=== PATIENT | male | born 1955 | race Two or more races ===

== ENCOUNTER 2024-04-02 20:40 | Inpatient (IN) | payer OTHER, MEDICAID, MEDICARE, SELFPAY ==
[2024-04-02] VITALS (7 sets, daily range): BP systolic 117–120; BP diastolic 68–77; PULSE 101–117; RESP 18–30; TEMP 38.1–38.9; O2SAT 77–98
--- NOTE | 2024-04-02 20:47 | XR_ITS ---
Examination: AP chest single view Technique one AP portable upright chest single view Exam date and time: April 02, [id number] hrs. Comparison August 08, 2023 Indications: Onset fever today. Findings: No significant cardiac enlargement Median sternotomy wires No pneumonia or pulmonary edema Moderate osteopenia Impression: No pneumonia or pulmonary edema
--- NOTE | 2024-04-02 20:50 | PD.EDABDPN ---
ED Abdominal Pain RME/HPI General Chief Complaint: Flu Like Symptoms Stated complaint: GENERAL ILLNESS Time seen by provider: 04/02/24 20:44 Arrival date/time: 04/02/24 20:40 CC: Cough HPI EMS report the patient being presented to the ER from the assisted care facility where the patient was heard cough/choking, with complaints of feeling cold. Unknown onset time. Review the medical record show the patient has myasthenia gravis type 2 diabetes hyperlipidemia paraplegia with urinary retention and iron deficiency anemia's. Related Data Home Medications ?Medication ?Instructions ?Recorded ?Confirmed atorvastatin 40 mg tablet (Lipitor) 40 mg PO HS #0 tabs 02/21/17 08/07/23 folic acid 1 mg tablet 1 mg PO QDAY 07/08/17 08/07/23 pyridostigmine bromide 60 mg tablet 60 mg PO Q6H 08/24/18 08/07/23 amlodipine 2.5 mg tablet 2.5 mg PO QDAY 11/03/22 08/07/23 calcium acetate(phosphat bind) 667 667 mg PO TIDWM 11/03/22 08/07/23 mg capsule duloxetine 30 mg capsule,delayed 30 mg PO HS 11/03/22 08/07/23 release fenofibrate nanocrystallized 145 145 mg PO QDAY 11/03/22 08/07/23 mg tablet tamsulosin 0.4 mg capsule 0.4 mg PO BID 11/03/22 08/07/23 tizanidine 4 mg tablet 4 mg PO QID 11/03/22 08/07/23 acetaminophen 325 mg tablet 325 mg PO Q8H PRN breaktrhough pain 04/03/23 08/07/23 (Tylenol) albuterol 90 mcg/actuation aerosol 180 mcg inhalation Q4H PRN SOB 04/03/23 08/07/23 inhaler ascorbic acid (vitamin C) 500 mg 500 mg PO BID 04/03/23 08/07/23 tablet aspirin 81 mg capsule 81 mg PO QDAY 04/03/23 08/07/23 bisacodyl 10 mg rectal suppository 10 mg [place] Q72H PRN Constipation 04/03/23 08/07/23 (Dulcolax (bisacodyl)) cholecalciferol (vitamin D3) 25 50 mcg PO QDAY 04/03/23 08/07/23 mcg (1,000 unit) tablet (Vitamin D3) cranberry fruit 450 mg tablet 425 mg PO QDAY 04/03/23 08/07/23 (cranberry) docusate sodium 250 mg capsule 250 mg PO BID 04/03/23 08/07/23 glucagon 1 mg solution for 1 mg subcut DAILY 04/03/23 08/07/23 injection (Glucagon Emergency Kit) magnesium hydroxide 400 mg/5 mL 30 ml PO QDAY PRN Constipation 04/03/23 08/07/23 oral suspension (Milk of Magnesia) magnesium oxide 400 mg PO HS 04/03/23 08/07/23 multivitamin 1 tab PO QDAY 04/03/23 08/07/23 ondansetron HCl 4 mg tablet 4 mg PO Q6H PRN NAUSEA OR VOMITNG 04/03/23 08/07/23 thiamine HCl (vitamin B1) 100 mg 100 mg PO QDAY 04/03/23 08/07/23 tablet oxycodone-acetaminophen 7.5 mg-325 1 tab Q6H PRN Severe Pain (Scale 06/14/23 08/07/23 mg tablet Score 7-10) amitriptyline 50 mg tablet 50 mg PO QDAY 08/07/23 08/07/23 Previous Rx's ?Medication ?Instructions ?Recorded polyethylene glycol 3350 17 gram 17 g PO BID 30 days #100 ea 08/09/23 oral powder packet (HealthyLax) fosfomycin tromethamine 3 gram 1 packet PO Q3D Recurrent ESBL E 08/11/23 oral packet coli UTIs 3 doses #1 ea fluconazole 100 mg tablet 100 mg PO QDAY #7 tabs 08/14/23 Allergies Allergy/AdvReac Type Severity Reaction Status Date / Time No Known Allergies Allergy Verified 07/28/23 09:33 Review of Systems Review of Systems Narrative Review of Systems: GEN: + fever, + chills, no weight loss EYES: No discharge, no visual changes, no pain HEENT: No ear pain, no congestion, no sore throat PULM: No shortness of breath, no cough, no congestion CV: No chest pain, no dyspnea on exertion, no palpitations GI: No nausea, no vomiting, no diarrhea, no pain, no constipation : No frequency, no urgency, no dysuria MUSC/SKEL: No joint pain, no back pain SKIN: No rash PSYCH: No hallucinations, no depression HEME/LYMPH: No easy bleeding or bruising tendencies NEURO: No weakness, no headache Past Medical History Past Medical History NEUROLOGIC: Positive Neurological Disorders, Paralysis and Peripheral Neuropathy; Negative Seizures CARDIAC: Positive Cardiac Disorders, Myocardial Infarction, Coronary Artery Disease, Atherosclerotic Heart Disease, Peripheral Vascular Disease, Hypercholesterolemia, Cellulitis and Hypertension; Negative Congestive Heart Failure RESPIRATORY: Positive Sleep Apnea and Tobacco Use; Negative Chronic Obstructive Pulmonary Disease (COPD) or Asthma GASTROINTESTINAL: Positive Gastrointestinal Disorders and Obesity GENITOURINARY: Positive Genitourinary Disorders and Neurogenic Bladder; Negative Renal Disease REPRODUCTIVE: Negative Breast Cancer MUSCULOSKELETAL: Positive Musculoskeletal Disorders, Myasthenia Gravis, Fibromyalgia and Fractures ENDOCRINE: Positive Endocrine Disorders and Diabetes Mellitus Type 2; Negative Diabetes Mellitus Type 1 HEMATOLOGIC: Positive Blood Disorders and Anemia; Negative Sickle Cell Disease PSYCHO/SOCIAL: Positive Depression and Anxiety OTHER HISTORY: Positive Hospitalization, Autoimmune Disease and Falls; Negative Blood Transfusions, Blood Transfusion Reaction, Anesthesia Reactions, MRSA, Clostridium Difficile or Breast Cancer Family History FAMILY HISTORY: Positive Family Respiratory Disorders and Family Cardiac Disorders; Negative Family Gastrointestinal Problems Surgical History SURGICAL: Positive Coronary Artery Bypass Graft, Coronary Stent, Endocrine Surgery and Thyroidectomy; Negative Ear Surgery, Abdominal Surgery, Nephrectomy, Neurologic Surgery, Mastectomy or Vasectomy Social History SMOKING STATUS: Never smoker SECOND HAND EXPOSURE: Yes SUBSTANCE USE: does not use ED Exam Narrative Physical exam: [General: Obese in moderate discomfort not in any acute distress Head normocephalic HEENT: Within acceptable limits Neck is supple nontender Chest equal chest rise nontender to palpation Respiratory: Clear to auscultation no wheezes crackles or rubs CV: Rate rhythm is regular no murmurs rubs or clicks Abdomen is distended secondary to body habitus soft nontender no masses positive bowel sounds all 4 quadrants Back: No CVA tenderness no spinous process tenderness from cervical spine thoracic and lumbar spine Skin: Intact no petechiae rash induration ulceration or crepitus Extremities: Paraplegic moving upper extremities without complication Neuro: Awake alert oriented x2, person and place, Glascow coma 15 no focal deficits] Course Quality Measures none Orders Category Date Time Status Bedside Influenza A&B Antigen Test NOW Care 04/02/24 21:07 Completed Saline [Insert IV] NOW Care 04/02/24 21:20 Active XR chest 1V Stat Exams 04/02/24 20:47 Completed CBC Stat Lab 04/02/24 21:14 Completed CMP [Comprehensive Metabolic Panel] Stat Lab 04/02/24 21:14 Completed Lactic Acid [Lactate (Lactic Acid)] Stat Lab 04/02/24 21:14 Results Procalcitonin Stat Lab 04/02/24 21:14 Completed Urinalysis Stat Lab 04/02/24 20:52 Completed Acetaminophen Tab [Tylenol Tab] Med 04/02/24 20:48 Discontinued 650 mg PO X1 ONE Sodium Chloride 0.9% 1000 ml [Ns] 1,000 ml Med 04/02/24 21:27 Active IV 999 mls/hr cefTRIAXone/D5w 1gm IV premix [Rocephin/D5w 1gm IV Med 04/02/24 21:20 Discontinued premix] 50 ml IV X1 Vital Signs Vital signs: Vital Signs Temperature 102.1 F H 04/02/24 21:00 Abdominal Pain MDM Patient data External records reviewed:: [facility] previous records and EMS form Clinical information provided by:: patient and EMS Social determinants that could affect healthcare access:: none Patient has the following chronic illnesses:: Myasthenia gravis type 2 diabetes How is presenting disease/condition affected by chronic disease/condition?: uneffected by Evaluation data The following diagnostics were reviewed and interpreted by me:: lab results, radiology exam(s) and EKG tracing(s) Lab and/or radiology exams considered but not ordered:: EKG performed at 2055 shows ventricular 104 WY interval 164 QRS of 9 0 QTc of 347 the sinus tachycardia. Influenza A positive CBC shows no acute leukocytosis anemia thrombocytopenia CMP shows significant electrolyte imbalances there is not a elevated creatinine 1.7 BUN transaminitis and T. bili are within acceptable limits, review of other creatinines in the past show that this is an unchanged chronic condition. Chest x-ray interpreted by me read by radiology as negative for any acute finding Urine is positive for urinary tract infection. Interpretation Summary: Patient is influenza A positive with a UTI however the patient is not able to sustain normal oxygen saturations without supplemental oxygen which he does not wear at home. At this time the patient's case presented Dr. Cancino who agrees to accept the patient for admission for Dr. Garo Whitaker. Medications / Prescriptions Medications or Prescriptions considered but not ordered:: None Medication administrations:: Medication Administration History Sodium Chloride (Ns) 1,000 mls @ 999 mls/hr IV .Q1H1M ONE Stop: 12/31/24 22:27 Last Admin: 04/02/24 22:00 Dose: 999 mls/hr Documented By: KEVIN Discontinued Medications Acetaminophen (Acetaminophen 325 Mg Tablet) 650 mg PO X1 ONE Stop: 04/02/24 20:49 Last Admin: 04/02/24 21:00 Dose: 650 mg Documented By: KEVIN Ceftriaxone Sodium/Dextrose (Rocephin/D5w 1gm Iv Premix) 50 mls @ 100 mls/hr IV X1 ONE Stop: 04/02/24 21:49 Last Admin: 04/02/24 21:59 Dose: 100 mls/hr Documented By: KEVIN None Consultations Consultation(s) initiated? (list below): No Diagnosis Differential diagnosis abdominal pain: other (Pneumonia UTI influenza COVID) Most likely diagnosis given after review of the tests above:: Influenza A UTI Admission Indicated Admission indicated?: indicated Explain why admission is indicated or not indicated:: Requires further medical management Admission Request Was there a request for admission?: No Disposition Plan Disposition Plan: Admit Discharge Plan Plan Patient Disposition: Other Care w/in Hosp ([facility]) Patient condition on transfer: Stable Prescriptions/Referrals Prescriptions/Med Rec: No Action atorvastatin [Lipitor] 40 MG tablet 40 mg PO HS Qty: 0 folic acid 1 mg Tablet 1 mg PO QDAY pyridostigmine bromide 60 mg tablet 60 mg PO Q6H Glucagon Emergency Kit (human) 1 mg recon soln 1 mg subcut DAILY aspirin 81 mg Capsule 81 mg PO QDAY multivitamin Tablet 1 tab PO QDAY acetaminophen [Tylenol] 325 mg Tablet 325 mg PO Q8H PRN (Reason: breaktrhough pain) ondansetron HCl 4 mg Tablet 4 mg PO Q6H PRN (Reason: NAUSEA OR VOMITNG) thiamine HCl (vitamin B1) 100 mg Tablet 100 mg PO QDAY magnesium hydroxide [Milk of Magnesia] 400 mg/5 mL Suspension 30 ml PO QDAY PRN (Reason: Constipation) ascorbic acid (vitamin C) 500 mg Tablet 500 mg PO BID bisacodyl [Dulcolax (bisacodyl)] 10 mg Suppository 10 mg [place] Q72H PRN (Reason: Constipation) albuterol 90 mcg/actuation Aerosol 180 mcg INHALATION Q4H PRN (Reason: SOB) docusate sodium 250 mg Capsule 250 mg PO BID cholecalciferol (vitamin D3) [Vitamin D3] 25 mcg (1,000 unit) Tablet 50 mcg PO QDAY cranberry 450 mg Tablet 425 mg PO QDAY Rx Instructions: administer with a meal magnesium oxide 400 mg magnesium Tablet 400 mg PO HS oxycodone-acetaminophen 7.5-325 mg tablet 1 tab Q6H PRN (Reason: Severe Pain (Scale Score 7-10)) fluconazole 100 mg tablet 100 mg PO QDAY Qty: 7 0RF duloxetine 30 mg capsule,delayed release(DR/EC) 30 mg PO HS tizanidine 4 mg tablet 4 mg PO QID amlodipine 2.5 mg tablet 2.5 mg PO QDAY Rx Instructions: HOLD FOR SBP<100 OR DBP<50 tamsulosin 0.4 mg capsule 0.4 mg PO BID calcium acetate(phosphat bind) 667 mg capsule 667 mg PO TIDWM fenofibrate nanocrystallized 145 mg tablet 145 mg PO QDAY amitriptyline 50 mg tablet 50 mg PO QDAY polyethylene glycol 3350 [HealthyLax] 17 gram Powder In Packet 17 g PO BID 30 Days Qty: 100 6RF fosfomycin tromethamine 3 gram packet 1 packet PO Q3D Qty: 1 12RF Referrals: Leonides Amanda MD [Primary Care Provider] - In 1 week Problem List Clinical Impression: Influenza A, Hypoxemia, UTI (urinary tract infection) due to urinary indwelling catheter Patient/Caregiver Discharge Instructions Print Language: Norwegian Stand Alone Forms: Tejal Award Info., Patient Portal Info Letter PA/MARKETING SERVICES COORDINATOR Supervising Physician PA/MARKETING SERVICES COORDINATOR Supervising Physician: Lazaro Jackson ENP
[2024-04-02] MEDS: ACETAMINOPHEN 325 MG TABLET 650 MG PO (21:00)
[2024-04-02 21:08] LABS: Collection Type, Urine Clean Catch
[2024-04-02 21:17] LABS: Bacteria,Urine 2+; Bilirubin,Urine Negative (Negative); Blood,Urine Negative (Negative); Budding Yeast,Urine Present; Color,Urine Yellow (Lt Yel-Yel); Glucose, Urine Negative (Negative); Hyaline Casts,Urine < 1 /hpf (0-1); Ketones,Urine Trace (Negative); Leukocyte Esterase,Urine Positive (Negative); Nitrite,Urine Negative (Negative); Protein,Urine 1+ (Neg - Trace); RBC,Urine 15 /hpf (0-3); Specific Gravity,Urine 1.022 (1.001-1.035); Squamous Epithelial Cell,Urine 5 /hpf (0-5); WBC,Urine 141 /hpf (0-5)
[2024-04-02 21:19] LABS: Clarity,Urine Turbid (Clear/Hazy)
[2024-04-02 21:22] LABS: Basophils % (Auto) 0 % (0-2.5); Eosinophils # (Auto) 0.1 Thou/mm3 (0.0-0.5); Eosinophils % (Auto) 1 % (0-10); Hemoglobin 15.7 g/dL (13.5-16.0); Immature Granulocytes % (Auto) 0 % (0-0); Immature Granulocytes Auto 0.04 Thou/mm3 (0.00-0.00); Lymphocytes # (Auto) 1.2 Thou/mm3 (1.0-4.8); Lymphocytes % (Auto) 12 % (10-50); Mean Corpuscular HGB Conc 30.2 g/dl (31.0-37.0); Mean Corpuscular Hemoglobin 25.8 pg (25.0-35.0); Mean Corpuscular Volume 85 fL (80-100); Monocytes # (Auto) 0.7 Thou/mm3 (0.0-0.8); Monocytes % (Auto) 7 % (0-12); Neutrophils # (Auto) 8.2 Thou/mm3 (1.8-7.7); Neutrophils % (Auto) 80 % (37-80); Nucleated Red Blood Cell % 0 /100 WBC (0); Platelet Count 246 Thou/mm3 (140-440); RDW Standard Deviation 48.3 fL (35.1-43.9); Red Blood Count 6.09 Miln/mm3 (4.50-5.90); White Blood Count 10.2 Thou/mm3 (3.8-10.6)
[2024-04-02 21:25] LABS: Lactate (Lactic Acid) 2.4 mMol/L (0.4-2.0)
[2024-04-02 21:58] LABS: Alanine Aminotransferase 27 U/L (10-49); Albumin, Serum 5.4 gm/dL (3.4-4.8); Albumin/Globulin Ratio 1.6 (1.2-2.2); Alkaline Phosphatase 84 U/L (46-116); Anion Gap 10 (7-16); Aspartate Amino Transferase 39 U/L (0-34); BUN/Creatinine Ratio 14 Ratio (12-20); Bilirubin,Total 0.3 mg/dL (0.3-1.2); Blood Urea Nitrogen 23 mg/dL (9-23); Calcium 10.7 mg/dL (8.3-10.6); Calcium (Corrected) 10.7 mg/dL (8.5-10.1); Carbon Dioxide 27.1 mMol/L (20.0-31.0); Chloride 100 mMol/L (98-107); Creatinine (Component) 1.7 mg/dL (0.6-1.3); Globulin 3.3 gm/dL (2.3-3.5); Glucose 128 mg/dL (74-106); Osmolality,Calculated 279 (275-295); Potassium 4.3 mMol/L (3.4-5.1); Sodium 137 mMol/L (136-145); Total Protein 8.7 gm/dL (5.7-8.2); eGFR 44 See Note
[2024-04-02 21:59] LABS: Procalcitonin 0.22 ng/ml (0.0-0.49)
[2024-04-02] MEDS: cefTRIAXone/D5w 1gm IV premix 50 ML IV (21:59)
[2024-04-02] MEDS: SODIUM CHLORIDE 0.9% 1000 ML 1,000 ML 999 ML IV (22:00)
--- NOTE | 2024-04-02 23:13 | ESHP_ITS ---
Documentation for date of: 04/02/24 [facility] History of Present Illness Chief complaint: Fever and cough History of present illness: A 68-year-old male with significant past medical history of myasthenia gravis s/p thymectomy, hypertension, BPH, type 2 diabetes mellitus not on any medication, paraplegia status post 2 spinal surgeries, peripheral neuropathy, nephrolithiasis, possible TIMUR, neurogenic bladder, ?history of CAD s/p PCI, chronic pain who is living in [facility] since 2017 was brought to the hospital with chief complaints of fever, low oxygen saturations and cough. Patient endorses that he is having febrile episodes since 3 days and is taking Tylenol for it. On the day of admission, patient was found to have shortness of breath in the facility and on checking vitals found to have low saturations for which he was started on oxygen through nasal cannula and also noted to have a febrile episode for which patient was given an dose of Tylenol. Patient also endorsed that he is having cough with sputum production which was mucoid in nature. Denies chills, rigors, abdominal pain, nausea, vomiting, burning micturition and body pains. Patient reported that he is having indwelling urine catheter since 2017 during which he was diagnosed to have paraplegia due to hematoma in the vertebrae and underwent 2 surgeries for it. Since then patient is bedridden and ambulates in the wheelchair. Noted to have decreased sensations below the umbilicus and having chronic pain due to neuropathy in the feet. ED Course: -Initial vitals were blood pressure 117/68 mmHg, pulse rate 117/min, respiratory rate 20/min, temperature 102.1 ?F, SpO2 94% with 4 L oxygen -Labs significant for creatinine 1.7, BUN 23, lactate 2.4, AST 39, ALT 27, procalcitonin 0.22. Urine analysis showed turbid urine with 1+ proteinuria, 141 WBC, 15 RBC, 2+ urine bacteria, urine yeast positive. Chest x-ray did not show any new infiltrates. Tested positive for influenza A -In the ED, patient was given a dose of Tylenol, ceftriaxone, IV fluids and when tried to wean off from the oxygen, patient is desaturating to 70s for which patient was kept on 4 L oxygen -Patient was admitted for acute hypoxic respiratory failure secondary to influenza A Past medical history: Myasthenia gravis s/p thymectomy, hypertension, BPH, type 2 diabetes mellitus not on any medication, paraplegia status post 2 spinal surgeries, peripheral neuropathy, nephrolithiasis, possible TIMUR, neurogenic bladder, ?history of CAD s/p PCI Past surgical history: Myasthenia gravis s/p thymectomy, paraplegia status post 2 spinal surgeries, ?history of CAD s/p PCI Social history: Smoked for 30 years, currently smoking 1 cigarette/day, denies alcohol and other illicit drug abuse. Allergies: None Review of Systems Review of Systems Narrative Review of Systems: Constitutional: No Weight Change, Fever, No Chills, No Night Sweats, No Fatigue, No Malaise ENT/Mouth: No Hearing Changes, No Ear Pain, No Nasal Congestion, No Sinus Pain, No Hoarseness, No sore throat, No Rhinorrhea, No Swallowing Difficulty Eyes: No Eye Pain, No Swelling, No Redness, No Foreign Body, No Discharge, No Vision Changes Cardiovascular: No Chest Pain, No SOB, No PND, No Dyspnea on Exertion, No Orthopnea, No Edema, No Palpitations Respiratory: No Cough, No Sputum, No Wheezing, No Dyspnea Gastrointestinal: No Nausea, No Vomiting, No Diarrhea, No Constipation, No Pain, No Heartburn, No Anorexia, No Dysphagia, No Hematochezia, No Melena, No Flatulence, No Jaundice Genitourinary: No Dysuria, No Urinary Frequency, No Hematuria, Urinary Incontinence, No Urgency, No Flank Pain, No Urinary Flow Changes, No Hesitancy Musculoskeletal: No Arthralgias, No Myalgias, No Joint Swelling, No Joint Stiffness, No Back Pain, No Neck Pain, No Injury History Skin: No Skin Lesions, No Pruritis Neuro: Weakness, Numbness, Paresthesias, No Loss of Consciousness, No Syncope, No Dizziness, No Headache, No Coordination Changes, No Recent Falls Exam Vital Signs Temp Pulse Resp BP Pulse Ox O2 Del Method O2 Flow Rate 102.1 F H 101 H 30 H 117/68 96 Nasal Cannula 4 04/02/24 21:02 04/02/24 22:01 04/02/24 22:01 04/02/24 22:01 04/02/24 22:03 04/02/24 22:03 04/02/24 22:03 Narrative Exam General: Awake. Obese patient lying on the bed with oxygen through nasal cannula. HEENT: Normocephalic, atraumatic, mucous membranes moist. Heart: Regular rate and rhythm, no murmurs. Lungs: Overall decreased breath sounds are noted due to body habitus. Abdomen: Soft, nondistended, nontender, positive bowel sounds. ?No guarding or rebound tenderness. Neurologic: Alert and oriented x3, power is 0 in bilateral lower extremities with absent sensations below umbilicus. Extremities: No edema. Skin: No rash or ecchymoses. Results: Labs 04/03/24 04:40 04/03/24 04:40 Labs: Short CBC 04/02/24 Range/Units 21:14 WBC 10.2 (3.8-10.6) Thou/mm3 Hgb 15.7 (13.5-16.0) g/dL Hct 52.0 (41.0-53.0) % Plt Count 246 (140-440) Thou/mm3 BMP 04/02/24 21:14 Sodium 137 Potassium 4.3 Chloride 100 Carbon Dioxide 27.1 BUN 23 Creatinine 1.7 H Glucose 128 H Calcium 10.7 H Liver Function 04/02/24 Range/Units 21:14 Total Bilirubin 0.3 (0.3-1.2) mg/dL AST 39 H (0-34) U/L ALT 27 (10-49) U/L Alkaline Phosphatase 84 (46-116) U/L Albumin 5.4 H (3.4-4.8) gm/dL Urine 04/02/24 Range/Units 20:52 Urine Color Yellow (Lt Yel-Yel) Urine Clarity Turbid A (Clear/Hazy) Urine pH 7.0 (5.0-7.0) Ur Specific [place] 1.022 (1.001-1.035) Urine Protein 1+ A (Neg - Trace) Urine Glucose (UA) Negative (Negative) Quality Measures Quality Measures none Advance care planning discussed with:: patient Medications Home Medications and Allergies Home Medications ?Medication ?Instructions ?Recorded ?Confirmed ?Type atorvastatin 40 mg tablet (Lipitor) 40 mg PO HS #0 tabs 02/21/17 04/03/24 History folic acid 1 mg tablet 1 mg PO QDAY 07/08/17 04/03/24 History pyridostigmine bromide 60 mg tablet 60 mg PO Q6H 08/24/18 04/03/24 History amlodipine 2.5 mg tablet 2.5 mg PO QDAY 11/03/22 04/03/24 History calcium acetate(phosphat bind) 667 667 mg PO TIDWM 11/03/22 04/03/24 History mg capsule duloxetine 30 mg capsule,delayed 30 mg PO HS 11/03/22 04/03/24 History release fenofibrate nanocrystallized 145 145 mg PO QDAY 11/03/22 04/03/24 History mg tablet tamsulosin 0.4 mg capsule 0.4 mg PO BID 11/03/22 04/03/24 History tizanidine 4 mg tablet 4 mg PO QID 11/03/22 04/03/24 History acetaminophen 325 mg tablet 325 mg PO Q8H PRN breaktrhough pain 04/03/23 04/03/24 History (Tylenol) albuterol 90 mcg/actuation aerosol 180 mcg inhalation Q4H PRN SOB 04/03/23 04/03/24 History inhaler ascorbic acid (vitamin C) 500 mg 500 mg PO BID 04/03/23 04/03/24 History tablet aspirin 81 mg capsule 81 mg PO QDAY 04/03/23 04/03/24 History bisacodyl 10 mg rectal suppository 10 mg MS Q72H PRN Constipation 04/03/23 04/03/24 History (Dulcolax (bisacodyl)) cholecalciferol (vitamin D3) 25 50 mcg PO QDAY 04/03/23 04/03/24 History mcg (1,000 unit) tablet (Vitamin D3) cranberry fruit 450 mg tablet 425 mg PO QDAY 04/03/23 04/03/24 History (cranberry) docusate sodium 250 mg capsule 250 mg PO BID 04/03/23 04/03/24 History glucagon 1 mg solution for 1 mg subcut DAILY 04/03/23 04/03/24 History injection (Glucagon Emergency Kit) magnesium hydroxide 400 mg/5 mL 30 ml PO QDAY PRN Constipation 04/03/23 04/03/24 History oral suspension (Milk of Magnesia) magnesium oxide 400 mg PO HS 04/03/23 04/03/24 History multivitamin 1 tab PO QDAY 04/03/23 04/03/24 History ondansetron HCl 4 mg tablet 4 mg PO Q6H PRN NAUSEA OR VOMITNG 04/03/23 04/03/24 History thiamine HCl (vitamin B1) 100 mg 100 mg PO QDAY 04/03/23 04/03/24 History tablet oxycodone-acetaminophen 7.5 mg-325 1 tab Q6H PRN Severe Pain (Scale 06/14/23 04/03/24 History mg tablet Score 7-10) amitriptyline 50 mg tablet 50 mg PO QDAY 08/07/23 04/03/24 History cranberry 405 mg capsule 425 mg 04/03/24 History gabapentin 800 mg tablet 800 mg PO TID 04/03/24 04/03/24 History oxycodone-acetaminophen 5 mg-325 1 tab PO Q6H PRN Pain (Scale Score 04/03/24 History mg tablet (Percocet) 7-10) oxycodone-acetaminophen 7.5 mg-325 1 tab PO 4XD 04/03/24 04/03/24 History mg tablet ropinirole 1 mg tablet 1 mg PO BID 04/03/24 04/03/24 History Allergies Allergy/AdvReac Type Severity Reaction Status Date / Time No Known Allergies Allergy Verified 07/28/23 09:33 Visit Medications Acetaminophen (Acetaminophen 325 Mg Tablet) 650 mg PO Q6H PRN PRN Reason: Fever >101.5 Stop: 05/02/24 23:01 Albuterol/Ipratropium (Albuterol/Ipratropium (Duoneb) Rt Rajani 3 Ml Nebu) 3 ml INH Q6HRRT [facility] Stop: 05/03/24 00:59 Heparin Sodium (Porcine) (Heparin Sod Inj 5000 Unit/Ml Vial) 5,000 unit SC Q8HR [facility] Stop: 04/17/24 05:59 Ondansetron HCl (Ondansetron Inj 2 Mg/Ml Inj 2 Ml) 4 mg IV Q6H PRN; Protocol PRN Reason: NAUSEA OR VOMITING Stop: 05/02/24 23:01 Pantoprazole Sodium (Pantoprazole 40 Mg Tablet) 40 mg PO QDAY [facility] Stop: 05/03/24 08:59 Sodium Chloride (Sodium Cl Rt Rajani 3% 4 Ml Nebu (Non-Formulary)) 4 ml INH Q6HRRT [facility] Stop: 05/03/24 00:59 Discontinued Medications Acetaminophen (Acetaminophen 325 Mg Tablet) 650 mg PO X1 ONE Stop: 04/02/24 20:49 Last Admin: 04/02/24 21:00 Dose: 650 mg Ceftriaxone Sodium/Dextrose (Rocephin/D5w 1gm Iv Premix) 50 mls @ 100 mls/hr IV X1 ONE Stop: 04/02/24 21:49 Last Admin: 04/02/24 21:59 Dose: 100 mls/hr Sodium Chloride (Ns) 1,000 mls @ 999 mls/hr IV .Q1H1M ONE Stop: 04/02/24 22:27 Last Admin: 04/02/24 22:00 Dose: 999 mls/hr Assessment & Plan Plan A 68-year-old male with significant past medical history of myasthenia gravis s/p thymectomy, hypertension, type 2 diabetes mellitus not on any medication, paraplegia status post 2 spinal surgeries, peripheral neuropathy, nephrolithiasis, possible TIMUR, neurogenic bladder, ?history of CAD s/p PCI, BPH, chronic pain who is living in [facility] since 2017 was brought to the hospital with chief complaints of fever, low oxygen saturations and cough. # Acute hypoxic respiratory failure # Secondary to influenza A # Suspected underlying TIMUR/OHS -Patient endorses that he is having febrile episodes since 3 days and temporarily relieved with Tylenol -Also complaining of cough with sputum which is clear and mucoid -Denies shortness of breath, abdominal pain, vomiting, burning micturition -Patient was noted to have low oxygen saturations on the day of admission in the facility and was started on oxygen through nasal cannula -In the ED, patient was found to have temperature of 102.1 ?F, SpO2 94% with 4 L oxygen through nasal cannula -Labs remarkable for creatinine 1.7, lactate 2.4, AST 39. Urine analysis showed turbid urine with 141 WBC, urinary bacteria -Chest x-ray did not show any infiltrates -Tested positive for influenza A. Negative for influenza B and COVID -Patient received a dose of ceftriaxone in view of suspected UTI, Tylenol and IV fluids Plan -Started on Tamiflu 75 Mg p.o. twice daily [04/02-for 5 days] -Nebulizations as needed -Head end elevation of the bed -Acetaminophen as needed -Oxygen inhalation as needed # CKD stage III -Patient was found to have elevated creatinine and low GFR since 08/2023 -Creatinine as of 04/02/2024 is 1.7 -Patient denies any history of kidney disease -Recommended to consult nephro if needed -Bilateral renal ultrasound was ordered -Oreilly catheter in situ and recommended to titrate urine output. -Avoid nephrotoxic medication and renally dose medication # History of myasthenia gravis status post thymectomy -Patient does not appear to be in myasthenic crisis as of now -Resumed his home medication pyridostigmine 60 Mg p.o. 6 hourly -Avoid macrolides, aminoglycosides and fluoroquinolones #? Complicated UTI secondary to catheter related # Neurogenic bladder secondary to paraplegia # BPH -Patient had previous history of nephrolithiasis, UTI and JAEL -Patient presented with fever, tested positive for influenza A, urine analysis showed turbid urine with 1+ proteinuria, 141 WBC, 2+ urine bacteria -Patient is having Oreilly catheter since 2016 and last Oreilly change was 1 week before the hospitalization -Patient does have paraplegia and is not able to perceive sensations below the umbilicus and he does not endorse any burning micturition -Patient received a dose of ceftriaxone in the ED Plan -Urine cultures were sent -New Oreilly catheter was placed -Resumed tamsulosin -Started on cephalexin 500 Mg p.o. twice daily in view of complicated UTI as it is safe to give in myasthenia gravis -Change antibiotic if needed based on urine cultures #? History of CAD s/p PCI -Patient endorsed that he did not have any heart problems or PCI done -Patient was using aspirin and atorvastatin as home medication -Resumed his home medications. please confirm the CAD history with the patient # Chronic peripheral neuropathy -Patient is using gabapentin 800 Mg p.o. 3 times daily, duloxetine 30 Mg p.o. at bedtime and amitriptyline 50 Mg p.o. daily -Still complaining of severe tingling of bilateral lower extremities mainly around the foot -Resumed his home medication -B12 and folate levels were ordered -Resumed multivitamin # History of hypertension -Patient is using amlodipine 2.5 Mg surgery as home medication -Blood pressure at the time of admission is 117/68 mmHg -Resume his home medication # History of type 2 diabetes mellitus, not on treatment -Patient is not using any oral hypoglycemic drugs or insulin -A1c on 08/2023 is 5.3. Found to have elevated A1c in 2019 -Repeat HbA1c is ordered Hospital Maintenance: Dispo: Med/tele DVT ppx: Heparin GI ppx: Protonix Diet: Low-salt IV lines: Peripheral Code status: Full code Patient plan of care was discussed with the attending physician, Dr. Angel Cruz, PGY1 Attending Provider Attestation/Addendum I discussed with and supervised the resident physician who took care of this patient. I agree with the assessment and plan as above. 68-year-old male patient with coronary artery disease status post PCI, hypertension and diabetes, myasthenia gravis. Patient is being admitted for acute hypoxic respiratory failure. The patient tested positive for influenza A. Patient will be admitted for further management monitoring and treatment.
[2024-04-03] VITALS (17 sets, daily range): BP systolic 112–182; BP diastolic 57–86; PULSE 75–102; RESP 13–27; TEMP 36–38.1; O2SAT 92–100; BMI 37.4; BMI 35.9
[2024-04-03] MEDS: SODIUM CL RT SOL 3% 4 ML NEBU (NON-FORMULARY) INH ×3 (00:04→19:01)
[2024-04-03] MEDS: ALBUTEROL/IPRATROPIUM (Duoneb) RT SOL 3 ML NEBU INH ×4 (00:04→18:57)
--- NOTE | 2024-04-03 00:10 | PC.NURSE ---
When pt arrived he was shivering vigurously and had a fever oiver 102. opprox 40 min after tylenol the chills subsided. Pt states he feels much better now.
[2024-04-03 00:21] LABS: Reflex Lactate? Y
[2024-04-03 00:29] LABS: Lactic Acid, 3 HR 0.6 mMol/L (0.4-2.0)
[2024-04-03] MEDS: OSELTAMIVIR 75 MG CAPSULE PO ×3 (00:56→20:43)
--- NOTE | 2024-04-03 02:20 | PC.NURSE ---
Dr liang notified of pt blood pressure 182/86 HR 92. No new orders at this time.
[2024-04-03] MEDS: oxyCODONE/APAP 5/325 TABLET 2 TAB PO ×3 (03:55→18:19)
[2024-04-03 04:59] LABS: Basophils % (Auto) 0 % (0-2.5); Eosinophils % (Auto) 0 % (0-10); Hematocrit 45.7 % (41.0-53.0); Hemoglobin 13.6 g/dL (13.5-16.0); Immature Granulocytes % (Auto) 1 % (0-0); Immature Granulocytes Auto 0.06 Thou/mm3 (0.00-0.00); Lymphocytes # (Auto) 0.6 Thou/mm3 (1.0-4.8); Lymphocytes % (Auto) 5 % (10-50); Mean Corpuscular HGB Conc 29.8 g/dl (31.0-37.0); Mean Corpuscular Hemoglobin 25.3 pg (25.0-35.0); Mean Corpuscular Volume 85 fL (80-100); Monocytes # (Auto) 0.8 Thou/mm3 (0.0-0.8); Monocytes % (Auto) 8 % (0-12); Neutrophils # (Auto) 8.9 Thou/mm3 (1.8-7.7); Neutrophils % (Auto) 86 % (37-80); Nucleated Red Blood Cell % 0 /100 WBC (0); Platelet Count 230 Thou/mm3 (140-440); RDW Standard Deviation 47.8 fL (35.1-43.9); Red Blood Count 5.37 Miln/mm3 (4.50-5.90); White Blood Count 10.4 Thou/mm3 (3.8-10.6)
--- NOTE | 2024-04-03 05:09 | XR_ITS ---
Examination: Retroperitoneal ultrasound, complete Technique: Multiple high resolution grayscale images of the retroperitoneum obtained, including kidneys and bladder. Exam date and time:April 03, 2024 0811 hrs. Indications: Diagnosis chronic kidney disease, mild left hydronephrosis, 19 x 7 mm proximal left ureteral calculus, 5 mm lower pole right renal calculus on CT abdomen August 07, 2023 Findings: Right kidney 13.2 x 6.7 x 6.8 cm cortex 3.6 cm 36 mm lower pole cyst Left kidney 10.6 x 5.5 x 5.0 cm cortex 2.0 cm Moderate bilateral renal parenchymal scar formation No hydronephrosis Contracted urinary bladder 4.6 cm Prostate poorly visualized Impression: Limited study Moderate bilateral renal parenchymal scar formation No hydronephrosis or renal calculi
[2024-04-03] MEDS: tiZANidine HCL 2 MG TABLET 4 MG PO ×4 (05:13→20:40)
[2024-04-03] MEDS: HEPARIN SOD INJ 5000 UNIT/ML VIAL SC ×3 (05:13→21:56)
[2024-04-03 05:37] LABS: Anion Gap 7 (7-16); BUN/Creatinine Ratio 18 Ratio (12-20); Blood Urea Nitrogen 23 mg/dL (9-23); Calcium 9.3 mg/dL (8.3-10.6); Carbon Dioxide 29.3 mMol/L (20.0-31.0); Chloride 101 mMol/L (98-107); Creatinine (Component) 1.3 mg/dL (0.6-1.3); Estimated Creatinine Clearance 58.1 mL/min (>60); Glucose 116 mg/dL (74-106); Magnesium 2.2 mg/dL (1.6-2.6); Osmolality,Calculated 278 (275-295); Potassium 4.3 mMol/L (3.4-5.1); Sodium 137 mMol/L (136-145); Thyroid Stimulating Hormone 0.53 uIU/mL (0.55-4.78); eGFR > 60 See Note
[2024-04-03 05:40] LABS: Vitamin B12 271 pg/mL (211-911)
[2024-04-03 05:41] LABS: Folate > 24.00 ng/mL (>5.38)
[2024-04-03 05:48] LABS: Glucose Estimated Average 111 mg/dL (80-131); Hemoglobin A1C 5.5 % Hgb (4.8-6.0)
[2024-04-03] MEDS: ONDANSETRON INJ 2 MG/ML INJ 2 ML 4 MG IV (05:54)
[2024-04-03 06:49] LABS: Cardiac Risk Estimate 2.9 RATIO (4.0-6.7); Cholesterol 135 mg/dL (132-200); HDL Cholesterol 46 mg/dL (40-60); LDL Cholesterol,Calculated 52 mg/dL (0-130); Triglycerides 185 mg/dL (30-150)
[2024-04-03] MEDS: POLYETHYLENE GLYCOL 17 GM PACKET PO ×2 (08:31→20:39)
[2024-04-03] MEDS: FENOFIBRATE 145 MG TABLET (NON-FORMULARY) PO (08:31)
[2024-04-03] MEDS: THIAMINE 100 MG TABLET PO (08:31)
[2024-04-03] MEDS: rOPINIRole HCL 1 MG TABLET PO ×2 (08:31→20:41)
[2024-04-03] MEDS: DOCUSATE SOD 250 MG CAPSULE PO ×2 (08:31→20:43)
[2024-04-03] MEDS: ASPIRIN 81 MG CHEW PO (08:32)
[2024-04-03] MEDS: PANTOPRAZOLE 40 MG TABLET PO (08:32)
[2024-04-03] MEDS: cephALEXin 250 MG CAPSULE 500 MG PO ×2 (08:32→20:41)
[2024-04-03] MEDS: amLODIPine BESYLATE 2.5 MG TABLET PO (08:32)
[2024-04-03] MEDS: TAMSULOSIN HCL 0.4 MG CAPSULE PO ×2 (08:32→20:41)
[2024-04-03] MEDS: MULTIVITAMINS TABLET 1 TAB PO (08:32)
[2024-04-03] MEDS: FOLIC ACID 1 MG TABLET PO (08:32)
--- NOTE | 2024-04-03 10:51 | PC.SS ---
Ramses Cross is a 68 [id number] admitted to Med Surg for Influenza A. SS spoke to pt nurse Carolina from [facility]. 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 [place] reports he pt is primarily bedbound and wheelchair bound and MAX assist with all ADLS. Pts surrogate decision maker is his son Gabriel Cross [phone]. Plan is for pt to return to [facility], pt will need gurney transport and has the insurance coverage. SS will remain available for any additional needs or concerns. Plan: [facility] (Long-term resident) DM: Dangelo Cross [phone] PCP: Dr. Amanda
--- NOTE | 2024-04-03 11:09 | ESPR_ITS ---
<Statement entered by Andres Sauceda MD - 04/09/24 14:15> I reviewed above note and agree with findings and plans. I have also personally examined the patient with medicine team and went over assessment and plan with medical team including merchandising internship and resident physician. Documentation for date of: 04/03/24 Subjective Subjective Interval history: Patient seen and examined at bedside. Reports feeling much better, saturating well on 3 L nasal cannula. Will add doxycycline for MRSA coverage. Labs reviewed, will continue bladder Distigmine every 6 hours. Will continue Keflex for UTI. Renal ultrasound significant for moderate bilateral renal parenchymal scar formation. Will continue to monitor patient. Exam Vital Signs Temp Pulse Resp BP Pulse Ox O2 Del Method O2 Flow Rate 96.8 F 79 18 156/71 H 96 Nasal Cannula 4 04/03/24 08:00 04/03/24 10:13 04/03/24 08:00 04/03/24 08:32 04/03/24 08:00 04/03/24 08:00 04/03/24 08:00 Narrative Exam General: Awake. Obese patient lying on the bed with oxygen through nasal cannula. HEENT: Normocephalic, atraumatic, mucous membranes moist. Heart: Regular rate and rhythm, no murmurs. Lungs: Overall decreased breath sounds are noted due to body habitus. Abdomen: Soft, nondistended, nontender, positive bowel sounds. ?No guarding or rebound tenderness. Neurologic: Alert and oriented x3, power is 0 in bilateral lower extremities with absent sensations below umbilicus. Extremities: No edema. Skin: No rash or ecchymoses. Scar noted on mid chest. Objective Labs 04/03/24 04:40 04/03/24 04:40 Labs: Laboratory Results - last 24 hr 04/02/24 04/02/24 04/03/24 20:52 21:14 00:23 WBC 10.2 RBC 6.09 H Hgb 15.7 Hct 52.0 MCV 85 MCH 25.8 MCHC 30.2 L RDW Std Deviation 48.3 H Plt Count 246 Neut % (Auto) 80 Lymph % (Auto) 12 [place] % (Auto) 7 Eos % (Auto) 1 Baso % (Auto) 0 Neut # (Auto) 8.2 H Lymph # (Auto) 1.2 [place] # (Auto) 0.7 Eos # (Auto) 0.1 Baso # (Auto) 0.0 Immature Gran # (Auto) 0.04 H Absolute Nucleated RBC 0.00 Immature Gran % 0 Nucleated RBC % 0 Sodium 137 Potassium 4.3 Chloride 100 Carbon Dioxide 27.1 Anion Gap 10 BUN 23 Creatinine 1.7 H Estim Creat Clear Calc Not Performed. eGFR 44 L BUN/Creatinine Ratio [address] Glu mg/dL Hemoglobin A1c Calculated Osmolality 279 Lactic Acid 2.4 H 0.6 Calcium 10.7 H Corrected Calcium 10.7 H Magnesium Total Bilirubin 0.3 AST 39 H ALT 27 Alkaline Phosphatase 84 Total Protein 8.7 H Albumin 5.4 H Globulin 3.3 Albumin/Globulin Ratio 1.6 Triglycerides Cholesterol LDL Cholesterol, Calc HDL Cholesterol Cholesterol/HDL Ratio Vitamin B12 Folate Procalcitonin 0.22 TSH Ur Collection Type Clean Catch Urine Color Yellow Urine Clarity Turbid A Urine pH 7.0 Ur Specific Cocoa 1.022 Urine Protein 1+ A Urine Glucose (UA) Negative Urine Ketones Trace Urine Blood Negative Urine Nitrite Negative Urine Bilirubin Negative Urine Urobilinogen (Auto) 3.0 Ur Leukocyte Esterase Positive Urine RBC 15 H Urine WBC 141 H Ur Squamous Epith Cells 5 Urine Bacteria 2+ A Hyaline Casts < 1 Urine Yeast (Budding) Present A 04/03/24 04/03/24 04/03/24 04:40 04:40 04:40 WBC 10.4 RBC 5.37 Hgb 13.6 D Hct 45.7 MCV 85 MCH 25.3 MCHC 29.8 L RDW Std Deviation 47.8 H Plt Count 230 Neut % (Auto) 86 H Lymph % (Auto) 5 L [place] % (Auto) 8 Eos % (Auto) 0 Baso % (Auto) 0 Neut # (Auto) 8.9 H Lymph # (Auto) 0.6 L [place] # (Auto) 0.8 Eos # (Auto) 0.0 Baso # (Auto) 0.0 Immature Gran # (Auto) 0.06 H Absolute Nucleated RBC 0.00 Immature Gran % 1 H Nucleated RBC % 0 Sodium 137 Potassium 4.3 Chloride 101 Carbon Dioxide 29.3 Anion Gap 7 BUN 23 Creatinine 1.3 Estim Creat Clear Calc 58.1 L eGFR > 60 BUN/Creatinine Ratio [address]ucose [address] Glu mg/dL 111 Hemoglobin A1c 5.5 Calculated Osmolality 278 Lactic Acid Calcium 9.3 Corrected Calcium Magnesium 2.2 Total Bilirubin AST ALT Alkaline Phosphatase Total Protein Albumin Globulin Albumin/Globulin Ratio Triglycerides 185 H Cancelled Cholesterol 135 Cancelled LDL Cholesterol, Calc 52 HDL Cholesterol Cholesterol/HDL Ratio Vitamin B12 Folate Procalcitonin TSH Ur Collection Type Urine Color Urine Clarity Urine pH Ur Specific [place] Urine Protein Urine Glucose (UA) Urine Ketones Urine Blood Urine Nitrite Urine Bilirubin Urine Urobilinogen (Auto) Ur Leukocyte Esterase Urine RBC Urine WBC Ur Squamous Epith Cells Urine Bacteria Hyaline Casts Urine Yeast (Budding) 04/03/24 04/03/24 04/03/24 04:40 04:40 04:40 WBC RBC Hgb Hct MCV MCH MCHC RDW Std Deviation Plt Count Neut % (Auto) Lymph % (Auto) Independence % (Auto) Eos % (Auto) Baso % (Auto) Neut # (Auto) Lymph # (Auto) [place] # (Auto) Eos # (Auto) Baso # (Auto) Immature Gran # (Auto) Absolute Nucleated RBC Immature Gran % Nucleated RBC % Sodium Potassium Chloride Carbon Dioxide Anion Gap BUN Creatinine Estim Creat Clear Calc eGFR BUN/Creatinine Ratio Glucose Estimated Ave Glu mg/dL Hemoglobin A1c Calculated Osmolality Lactic Acid Calcium Corrected Calcium Magnesium Total Bilirubin AST ALT Alkaline Phosphatase Total Protein Albumin Globulin Albumin/Globulin Ratio Triglycerides Cholesterol LDL Cholesterol, Calc Cancelled HDL Cholesterol 46 Cancelled Cholesterol/HDL Ratio 2.9 L Cancelled Vitamin B12 271 Folate > 24.00 Procalcitonin TSH 0.53 L Ur Collection Type Urine Color Urine Clarity Urine pH Ur Specific [place] Urine Protein Urine Glucose (UA) Urine Ketones Urine Blood Urine Nitrite Urine Bilirubin Urine Urobilinogen (Auto) Ur Leukocyte Esterase Urine RBC Urine WBC Ur Squamous Epith Cells Urine Bacteria Hyaline Casts Urine Yeast (Budding) Quality Measures Quality Measures none Advance care planning discussed with:: patient Assessment & Plan Assessment Current Active Medications: Generic Name Dose Route Start Last Admin Trade Name Freq PRN Reason Stop Dose Admin Acetaminophen 650 mg 04/03/24 10:56 Acetaminophen 325 Mg Tablet PO 05/02/24 23:01 Q6H PRN Fever >101.5 Albuterol/Ipratropium 3 ml 04/03/24 01:00 04/03/24 06:56 Albuterol/Ipratropium (Duoneb) Rt Rajani 3 Ml Nebu INH 05/03/24 00:59 3 ml Q6HRRT CARMITA Administration Amlodipine Besylate 2.5 mg 04/03/24 09:00 04/03/24 08:32 Amlodipine Besylate 2.5 Mg Tablet PO 05/03/24 08:59 2.5 mg QDAY CARMITA Administration Aspirin 81 mg 04/03/24 09:00 04/03/24 08:32 Aspirin 81 Mg Chew PO 05/03/24 08:59 81 mg QDAY CARMITA Administration Atorvastatin Calcium 40 mg 04/03/24 21:00 Atorvastatin Calcium 20 Mg Tablet PO 05/03/24 20:59 HS [facility] Cephalexin HCl 500 mg 04/03/24 09:00 04/03/24 08:32 Cephalexin 250 Mg Capsule PO 04/10/24 08:59 500 mg BID CARMITA Administration Docusate Sodium 250 mg 04/03/24 09:00 04/03/24 08:31 Docusate Sod 250 Mg Capsule PO 05/03/24 08:59 250 mg BID CARMITA Administration Protocol Doxycycline Hyclate 100 mg 04/03/24 11:00 Doxycycline 100 Mg Tablet PO 04/10/24 10:59 BID CARMITA Duloxetine HCl 30 mg 04/03/24 21:00 Duloxetine Hcl 30 Mg Capsule PO 05/03/24 20:59 HS [facility] Fenofibrate 145 mg 04/03/24 09:00 04/03/24 08:31 Fenofibrate 145 Mg Tablet (Non-Formulary) PO 05/03/24 08:59 145 mg QDAY CARMITA Administration Folic Acid 1 mg 04/03/24 09:00 04/03/24 08:32 Folic Acid 1 Mg Tablet PO 05/03/24 08:59 1 mg QDAY CARMITA Administration Heparin Sodium (Porcine) 5,000 unit 04/03/24 06:00 04/03/24 05:13 Heparin Sod Inj 5000 Unit/Ml Vial SC 04/17/24 05:59 5,000 unit Q8HR CARMITA Administration Magnesium Hydroxide 30 ml 04/03/24 03:07 Milk Of Magnesia Susp 30 Ml Udc PO 05/03/24 03:06 QDAY PRN Constipation Protocol Magnesium Oxide 400 mg 04/03/24 21:00 Magnesium Oxide 400 Mg Tablet PO 05/03/24 20:59 HS [facility] Multivitamins 1 tab 04/03/24 09:00 04/03/24 08:32 Multivitamins Tablet PO 05/03/24 08:59 1 tab QDAY CARMITA Administration Ondansetron HCl 4 mg 04/02/24 23:02 04/03/24 05:54 Ondansetron Inj 2 Mg/Ml Inj 2 Ml IV 05/02/24 23:01 4 mg Q6H PRN Administration NAUSEA OR VOMITING Protocol Oseltamivir Phosphate 75 mg 04/02/24 23:45 04/03/24 08:31 Oseltamivir 75 Mg Capsule PO 04/09/24 23:44 75 mg BID CARMITA Administration Oxycodone/Acetaminophen 2 tab 04/03/24 03:15 04/03/24 03:55 Oxycodone/Apap 5/325 Tablet PO 04/08/24 03:14 2 tab Q6HR PRN Administration PAIN SCALE 4-10(Mod-Sev Pantoprazole Sodium 40 mg 04/03/24 09:00 04/03/24 08:32 Pantoprazole 40 Mg Tablet PO 05/03/24 08:59 40 mg QDAY CARMITA Administration Polyethylene Glycol 17 gm 04/03/24 09:00 04/03/24 08:31 Polyethylene Glycol 17 Gm Packet PO 05/03/24 08:59 17 gm BID CARMITA Administration Pyridostigmine Tyronza 60 mg 04/03/24 03:15 04/03/24 03:57 Pyridostigmine Tyronza 60 Mg Tablet PO 05/03/24 03:14 Not Given Q6H CARMITA Ropinirole HCl 1 mg 04/03/24 09:00 04/03/24 08:31 Ropinirole Hcl 1 Mg Tablet PO 05/03/24 08:59 1 mg BID CARMITA Administration Sodium Chloride 4 ml 04/03/24 01:00 04/03/24 06:56 Sodium Cl Rt Rajani 3% 4 Ml Nebu (Non-Formulary) INH 05/03/24 00:59 4 ml Q6HRRT CARMITA Administration Tamsulosin HCl 0.4 mg 04/03/24 09:00 04/03/24 08:32 Tamsulosin Hcl 0.4 Mg Capsule PO 05/03/24 08:59 0.4 mg BID CARMITA Administration Thiamine HCl 100 mg 04/03/24 09:00 04/03/24 08:31 Thiamine 100 Mg Tablet PO 05/03/24 08:59 100 mg QDAY CARMITA Administration Tizanidine HCl 4 mg 04/03/24 06:00 04/03/24 05:13 Tizanidine Hcl 2 Mg Tablet PO 05/03/24 05:59 4 mg QID CARMITA Administration Plan Summary: Mr. Cross is a 68-year-old male with significant past medical history of myasthenia gravis s/p thymectomy, hypertension, type 2 diabetes mellitus not on any medication, paraplegia status post 2 spinal surgeries, peripheral neuropathy, nephrolithiasis, possible TIMUR, neurogenic bladder, ?history of CAD s/p PCI, BPH, chronic pain who is living in [facility] rehab center since 2017 was brought to the hospital with chief complaints of fever, low oxygen saturations and cough. # Acute hypoxic respiratory failure # SIRS positive 05/07 # Secondary to influenza A # Suspected underlying TIMUR/OHS -Patient endorses that he is having febrile episodes since 3 days and temporarily relieved with Tylenol -Also complaining of cough with sputum which is clear and mucoid -Denies shortness of breath, abdominal pain, vomiting, burning micturition. -Patient was noted to have low oxygen saturations on the day of admission in the facility and was started on oxygen through nasal cannula -In the ED, patient was found to have temperature of 102.1 ?F, SpO2 94% with 4 L oxygen through nasal cannula, tachycardic heart rate 117 on presentation -Labs remarkable for creatinine 1.7, lactate 2.4, AST 39. Urine analysis showed turbid urine with 141 WBC, urinary bacteria -Chest x-ray did not show any infiltrates -Tested positive for influenza A. Negative for influenza B and COVID -Patient received a dose of ceftriaxone in view of suspected UTI, Tylenol and IV fluids Plan -Started on Tamiflu 75 Mg p.o. twice daily [04/02-for 5 days] -Started on doxycycline 100 mg p.o. twice daily for MRSA coverage -Nebulizations as needed, DuoNeb as needed -Head end elevation of the bed -Acetaminophen as needed -Oxygen inhalation as needed # CKD stage III -Patient was found to have elevated creatinine and low GFR since 08/2023 -Creatinine as of 04/02/2024 is 1.7 -Patient denies any history of kidney disease -Renal ultrasound significant for moderate bilateral renal parenchymal scar formation. -Oreilly catheter in situ and recommended to titrate urine output. -Avoid nephrotoxic medication and renally dose medication # History of myasthenia gravis status post thymectomy -Patient does not appear to be in myasthenic crisis as of now -Resumed his home medication pyridostigmine 60 Mg p.o. 6 hourly -Avoid macrolides, aminoglycosides and fluoroquinolones # Complicated UTI secondary to catheter related # Neurogenic bladder secondary to paraplegia # BPH -Patient had previous history of nephrolithiasis, UTI and JAEL -Patient presented with fever, tested positive for influenza A, urine analysis showed turbid urine with 1+ proteinuria, 141 WBC, 2+ urine bacteria -Patient is having Oreilly catheter since 2017 and last Oreilly change was 1 week before the hospitalization -Patient does have paraplegia and is not able to perceive sensations below the umbilicus and he does not endorse any burning micturition -Patient received a dose of ceftriaxone in the ED Plan -Urine cultures were sent -New Oreilly catheter was placed -Resumed tamsulosin -Started on cephalexin 500 Mg p.o. twice daily in view of complicated UTI as it is safe to give in myasthenia gravis -Change antibiotic if needed based on urine cultures #?History of CAD s/p PCI -Patient endorsed that he did not have any heart problems or PCI done -Patient was using aspirin and atorvastatin as home medication -Resumed his home medications. please confirm the CAD history with the patient # Chronic peripheral neuropathy -Patient is using gabapentin 800 Mg p.o. 3 times daily, duloxetine 30 Mg p.o. at bedtime and amitriptyline 50 Mg p.o. daily -Still complaining of severe tingling of bilateral lower extremities mainly around the foot -Resumed his home medication -B12, folate normal -Resumed multivitamin # History of hypertension -Patient is using amlodipine 2.5 mg as home medication -Blood pressure at the time of admission is 117/68 mmHg -Resume his home medication # History of type 2 diabetes mellitus, not on treatment -Patient is not using any oral hypoglycemic drugs or insulin -A1c on 08/2023 is 5.5. -Monitor daily blood glucose Hospital Maintenance: Dispo: Med/tele DVT ppx: Heparin GI ppx: Protonix Diet: Low-salt IV lines: Peripheral Code status: Full code Case discussed with Attending Dr. Sauceda. Dyllan Pradhan PGY1
[2024-04-03] MEDS: pyRIDostigmine bromide 60 MG TABLET PO ×3 (12:12→20:40)
[2024-04-03] MEDS: DOXYCYCLINE 100 MG TABLET PO ×2 (12:12→20:42)
[2024-04-03] MEDS: GABAPENTIN 300 MG CAPSULE PO ×2 (14:29→21:56)
--- NOTE | 2024-04-03 14:50 | PC.SS ---
Roundin[place] of O2, on IV abx for UTI and MRSA
[2024-04-03] MEDS: ATORVASTATIN CALCIUM 20 MG TABLET 40 MG PO (20:42)
[2024-04-03] MEDS: DULoxetine HCL 30 MG CAPSULE PO (20:42)
[2024-04-03] MEDS: MAGNESIUM OXIDE 400 MG TABLET PO (20:43)
[2024-04-04] VITALS (15 sets, daily range): BP systolic 90–159; BP diastolic 55–70; PULSE 65–79; RESP 14–20; TEMP 36.1–36.5; O2SAT 92–100; BMI 36.1
[2024-04-04] MEDS: SODIUM CL RT SOL 3% 4 ML NEBU (NON-FORMULARY) INH ×2 (01:06→18:58)
[2024-04-04] MEDS: ALBUTEROL/IPRATROPIUM (Duoneb) RT SOL 3 ML NEBU INH ×4 (01:06→18:59)
[2024-04-04] MEDS: pyRIDostigmine bromide 60 MG TABLET PO ×4 (03:12→21:59)
[2024-04-04] MEDS: ONDANSETRON INJ 2 MG/ML INJ 2 ML 4 MG IV (04:56)
[2024-04-04 05:26] LABS: Basophils % (Auto) 1 % (0-2.5); Eosinophils % (Auto) 1 % (0-10); Hematocrit 45.4 % (41.0-53.0); Hemoglobin 13.4 g/dL (13.5-16.0); Immature Granulocytes % (Auto) 1 % (0-0); Immature Granulocytes Auto 0.05 Thou/mm3 (0.00-0.00); Lymphocytes # (Auto) 0.8 Thou/mm3 (1.0-4.8); Lymphocytes % (Auto) 13 % (10-50); Mean Corpuscular HGB Conc 29.5 g/dl (31.0-37.0); Mean Corpuscular Hemoglobin 25.3 pg (25.0-35.0); Mean Corpuscular Volume 86 fL (80-100); Monocytes # (Auto) 0.7 Thou/mm3 (0.0-0.8); Monocytes % (Auto) 10 % (0-12); Neutrophils % (Auto) 75 % (37-80); Nucleated Red Blood Cell % 0 /100 WBC (0); Platelet Count 229 Thou/mm3 (140-440); RDW Standard Deviation 48.5 fL (35.1-43.9); Red Blood Count 5.29 Miln/mm3 (4.50-5.90); White Blood Count 6.6 Thou/mm3 (3.8-10.6)
[2024-04-04] MEDS: tiZANidine HCL 2 MG TABLET 4 MG PO ×4 (05:44→22:00)
[2024-04-04] MEDS: HEPARIN SOD INJ 5000 UNIT/ML VIAL SC ×3 (05:45→22:02)
[2024-04-04] MEDS: GABAPENTIN 300 MG CAPSULE PO ×3 (05:45→21:58)
[2024-04-04 05:49] LABS: Anion Gap 6 (7-16); BUN/Creatinine Ratio 21 Ratio (12-20); Blood Urea Nitrogen 29 mg/dL (9-23); Calcium 9.4 mg/dL (8.3-10.6); Carbon Dioxide 32.3 mMol/L (20.0-31.0); Chloride 100 mMol/L (98-107); Creatinine (Component) 1.4 mg/dL (0.6-1.3); Estimated Creatinine Clearance 87.6 mL/min (>60); Free T4 (Free Thyroxine) 1.19 ng/dL (0.89-1.76); Glucose 112 mg/dL (74-106); Osmolality,Calculated 282 (275-295); Potassium 4.8 mMol/L (3.4-5.1); Sodium 138 mMol/L (136-145); eGFR 55 See Note
--- NOTE | 2024-04-04 08:47 | PC.NURSE ---
notified Dr. Pradhan of pt's bp
[2024-04-04] MEDS: FOLIC ACID 1 MG TABLET PO (09:09)
[2024-04-04] MEDS: POLYETHYLENE GLYCOL 17 GM PACKET PO ×2 (09:09→21:58)
[2024-04-04] MEDS: DOXYCYCLINE 100 MG TABLET PO ×2 (09:09→22:01)
[2024-04-04] MEDS: OSELTAMIVIR 75 MG CAPSULE PO ×2 (09:09→22:01)
[2024-04-04] MEDS: cephALEXin 250 MG CAPSULE 500 MG PO ×2 (09:09→22:00)
[2024-04-04] MEDS: AMITRIPTYLINE HCL 25 MG TABLET 50 MG PO (09:09)
[2024-04-04] MEDS: MULTIVITAMINS TABLET 1 TAB PO (09:09)
[2024-04-04] MEDS: FENOFIBRATE 145 MG TABLET (NON-FORMULARY) PO (09:09)
[2024-04-04] MEDS: ASPIRIN 81 MG CHEW PO (09:09)
[2024-04-04] MEDS: PANTOPRAZOLE 40 MG TABLET PO (09:09)
[2024-04-04] MEDS: DOCUSATE SOD 250 MG CAPSULE PO ×2 (09:09→21:59)
[2024-04-04] MEDS: rOPINIRole HCL 1 MG TABLET PO ×2 (09:09→21:58)
[2024-04-04] MEDS: TAMSULOSIN HCL 0.4 MG CAPSULE PO ×2 (09:09→22:01)
[2024-04-04] MEDS: THIAMINE 100 MG TABLET PO (09:09)
--- NOTE | 2024-04-04 09:43 | PC.SS ---
Follow up note: Pt is on 2 liters of O2. Pt does not use O2 at [facility], [facility]. Pt is on PO antibiotic and Tamiflu. SS spoke to Beth at [facility] who states pt is open to working with PT again and is requesting PT evaluation.
[2024-04-04] MEDS: SODIUM CHLORIDE 0.9% 1000 ML 1,000 ML 80 ML IV (11:01)
--- NOTE | 2024-04-04 12:23 | ESPR_ITS ---
<Statement entered by Andres Sauceda MD - 04/09/24 14:15> I reviewed above note and agree with findings and plans. I have also personally examined the patient with medicine team and went over assessment and plan with medical team including internet media planner and resident physician. Documentation for date of: 04/04/24 Subjective Subjective Interval history: Patient seen and examined at bedside. Patient's oxygen requirement continues to remain high, currently on 2 L nasal cannula. Blood pressure soft, creatinine BUN slightly increased compared to yesterday Will start patient on IV maintenance fluid Will continue to monitor patient, anticipate discharge tomorrow if patient's supplemental oxygen requirement improves. Exam Vital Signs Temp Pulse Resp BP Pulse Ox O2 Del Method O2 Flow Rate 97.6 F 78 17 154/67 H 92 L Nasal Cannula 1 04/04/24 12:00 04/04/24 12:04/04/24 12:04/04/24 12:00 04/04/24 12:00 04/04/24 12:04/04/24 12:00 Narrative Exam General: Awake. Obese patient lying on the bed with oxygen through nasal cannula. HEENT: Normocephalic, atraumatic, mucous membranes moist. Heart: Regular rate and rhythm, no murmurs. Lungs: Overall decreased breath sounds are noted due to body habitus. Abdomen: Soft, nondistended, nontender, positive bowel sounds. ?No guarding or rebound tenderness. Neurologic: Alert and oriented x3, power is 0 in bilateral lower extremities with absent sensations below umbilicus. Extremities: No edema. Skin: No rash or ecchymoses. Scar noted on mid chest. Objective Labs 04/04/24 04:40 04/04/24 04:40 Labs: Laboratory Results - last 24 hr 04/04/24 04:40 WBC 6.6 RBC 5.29 Hgb 13.4 L Hct 45.4 MCV 86 MCH 25.3 MCHC 29.5 L RDW Std Deviation 48.5 H Plt Count 229 Neut % (Auto) 75 Lymph % (Auto) 13 [place] % (Auto) 10 Eos % (Auto) 1 Baso % (Auto) 1 Neut # (Auto) 5.0 Lymph # (Auto) 0.8 L [place] # (Auto) 0.7 Eos # (Auto) 0.0 Baso # (Auto) 0.0 Immature Gran # (Auto) 0.05 H Absolute Nucleated RBC 0.00 Immature Gran % 1 H Nucleated RBC % 0 Sodium 138 Potassium 4.8 D Chloride 100 Carbon Dioxide 32.3 H Anion Gap 6 L BUN 29 H Creatinine 1.4 H Estim Creat Clear Calc 87.6 eGFR 55 L BUN/Creatinine Ratio 21 H Glucose 112 H Calculated Osmolality 282 Calcium 9.4 Free T4 1.19 Quality Measures Quality Measures none Advance care planning discussed with:: patient Assessment & Plan Assessment Current Active Medications: Generic Name Dose Route Start Last Admin Trade Name Freq PRN Reason Stop Dose Admin Acetaminophen 650 mg 04/03/24 10:56 Acetaminophen 325 Mg Tablet PO 05/02/24 23:01 Q6H PRN Fever >101.5 Albuterol/Ipratropium 3 ml 04/03/24 01:00 04/04/24 07:21 Albuterol/Ipratropium (Duoneb) Rt Rajani 3 Ml Nebu INH 05/03/24 00:59 3 ml Q6HRRT CARMITA Administration Amitriptyline HCl 50 mg 04/04/24 09:00 04/04/24 09:09 Amitriptyline Hcl 25 Mg Tablet PO 05/04/24 08:59 50 mg QDAY CARMITA Administration Amlodipine Besylate 2.5 mg 04/03/24 09:00 04/03/24 08:32 Amlodipine Besylate 2.5 Mg Tablet PO 05/03/24 08:59 2.5 mg QDAY CARMITA Administration Aspirin 81 mg 04/03/24 09:00 04/04/24 09:09 Aspirin 81 Mg Chew PO 05/03/24 08:59 81 mg QDAY CARMITA Administration Atorvastatin Calcium 40 mg 04/03/24 21:00 04/03/24 20:42 Atorvastatin Calcium 20 Mg Tablet PO 05/03/24 20:59 40 mg HS CARMITA Administration Cephalexin HCl 500 mg 04/03/24 09:00 04/04/24 09:09 Cephalexin 250 Mg Capsule PO 04/10/24 08:59 500 mg BID CARMITA Administration Docusate Sodium 250 mg 04/03/24 09:00 04/04/24 09:09 Docusate Sod 250 Mg Capsule PO 05/03/24 08:59 250 mg BID CARMITA Administration Protocol Doxycycline Hyclate 100 mg 04/03/24 11:00 04/04/24 09:09 Doxycycline 100 Mg Tablet PO 04/10/24 10:59 100 mg BID CARMITA Administration Duloxetine HCl 30 mg 04/03/24 21:00 04/03/24 20:42 Duloxetine Hcl 30 Mg Capsule PO 05/03/24 20:59 30 mg HS CARMITA Administration Fenofibrate 145 mg 04/03/24 09:00 04/04/24 09:09 Fenofibrate 145 Mg Tablet (Non-Formulary) PO 05/03/24 08:59 145 mg QDAY CARMITA Administration Folic Acid 1 mg 04/03/24 09:00 04/04/24 09:09 Folic Acid 1 Mg Tablet PO 05/03/24 08:59 1 mg QDAY CARMITA Administration Gabapentin 300 mg 04/03/24 14:00 04/04/24 05:45 Gabapentin 300 Mg Capsule PO 05/03/24 13:59 300 mg TID CARMITA Administration Heparin Sodium (Porcine) 5,000 unit 04/03/24 06:00 04/04/24 05:45 Heparin Sod Inj 5000 Unit/Ml Vial SC 04/17/24 05:59 5,000 unit Q8HR CARMITA Administration Sodium Chloride 1,000 mls @ 80 mls/hr 04/04/24 10:50 04/04/24 11:01 Ns IV 04/04/24 23:19 80 mls/hr .[id number] CARMITA Administration Magnesium Hydroxide 30 ml 04/03/24 03:07 Milk Of Magnesia Susp 30 Ml Udc PO 05/03/24 03:06 QDAY PRN Constipation Protocol Magnesium Oxide 400 mg 04/03/24 21:00 04/03/24 20:43 Magnesium Oxide 400 Mg Tablet PO 05/03/24 20:59 400 mg HS CARMITA Administration Multivitamins 1 tab 04/03/24 09:00 04/04/24 09:09 Multivitamins Tablet PO 05/03/24 08:59 1 tab QDAY CARMITA Administration Ondansetron HCl 4 mg 04/02/24 23:02 04/04/24 04:56 Ondansetron Inj 2 Mg/Ml Inj 2 Ml IV 05/02/24 23:01 4 mg Q6H PRN Administration NAUSEA OR VOMITING Protocol Oseltamivir Phosphate 75 mg 04/02/24 23:45 04/04/24 09:09 Oseltamivir 75 Mg Capsule PO 04/07/24 09:01 75 mg BID CARMITA Administration Oxycodone/Acetaminophen 2 tab 04/03/24 03:15 04/03/24 18:19 Oxycodone/Apap 5/325 Tablet PO 04/08/24 03:14 2 tab Q6HR PRN Administration PAIN SCALE 4-10(Mod-Sev Pantoprazole Sodium 40 mg 04/03/24 09:00 04/04/24 09:09 Pantoprazole 40 Mg Tablet PO 05/03/24 08:59 40 mg QDAY CARMITA Administration Polyethylene Glycol 17 gm 04/03/24 09:00 04/04/24 09:09 Polyethylene Glycol 17 Gm Packet PO 05/03/24 08:59 17 gm BID CARMITA Administration Pyridostigmine [place] 60 mg 04/03/24 03:15 04/04/24 09:09 Pyridostigmine [place] 60 Mg Tablet PO 05/03/24 03:14 60 mg Q6H CARMITA Administration Ropinirole HCl 1 mg 04/03/24 09:00 04/04/24 09:09 Ropinirole Hcl 1 Mg Tablet PO 05/03/24 08:59 1 mg BID CARMITA Administration Sodium Chloride 4 ml 04/03/24 01:00 04/04/24 07:21 Sodium Cl Rt Rajani 3% 4 Ml Nebu (Non-Formulary) INH 05/03/24 00:59 Not Given Q6HRRT CARMITA Tamsulosin HCl 0.4 mg 04/03/24 09:00 04/04/24 09:09 Tamsulosin Hcl 0.4 Mg Capsule PO 05/03/24 08:59 0.4 mg BID CARMITA Administration Thiamine HCl 100 mg 04/03/24 09:00 04/04/24 09:09 Thiamine 100 Mg Tablet PO 05/03/24 08:59 100 mg QDAY CARMITA Administration Tizanidine HCl 4 mg 04/03/24 06:00 04/04/24 05:44 Tizanidine Hcl 2 Mg Tablet PO 05/03/24 05:59 4 mg QID CARMITA Administration Plan Summary: Mr. Cross is a 68-year-old male with significant past medical history of myasthenia gravis s/p thymectomy, hypertension, type 2 diabetes mellitus not on any medication, paraplegia status post 2 spinal surgeries, peripheral neuropathy, nephrolithiasis, possible TIMUR, neurogenic bladder, ?history of CAD s/p PCI, BPH, chronic pain who is living in [facility] rehab center since 2016 was brought to the hospital with chief complaints of fever, low oxygen saturations and cough. # Acute hypoxic respiratory failure # SIRS positive 05/07 # Secondary to influenza A # Suspected underlying TIMUR/OHS -Patient endorses that he is having febrile episodes since 3 days and temporarily relieved with Tylenol -Also complaining of cough with sputum which is clear and mucoid -Denies shortness of breath, abdominal pain, vomiting, burning micturition. -Patient was noted to have low oxygen saturations on the day of admission in the facility and was started on oxygen through nasal cannula -In the ED, patient was found to have temperature of 102.1 ?F, SpO2 94% with 4 L oxygen through nasal cannula, tachycardic heart rate 117 on presentation -Labs remarkable for creatinine 1.7, lactate 2.4, AST 39. Urine analysis showed turbid urine with 141 WBC, urinary bacteria -Chest x-ray did not show any infiltrates -Tested positive for influenza A. Negative for influenza B and COVID -Patient received a dose of ceftriaxone in view of suspected UTI, Tylenol and IV fluids Plan -Continue Tamiflu 75 Mg p.o. twice daily [04/02-for 5 days] -Continue doxycycline 100 mg p.o. twice daily for MRSA coverage -Nebulizations as needed, DuoNeb as needed -Head end elevation of the bed -Acetaminophen as needed -Oxygen inhalation as needed # CKD stage III # Dehydration -Started on maintenance fluids -Patient was found to have elevated creatinine and low GFR since 08/2023 -Creatinine as of 04/02/2024 is 1.7 -Patient denies any history of kidney disease -Renal ultrasound significant for moderate bilateral renal parenchymal scar formation. -Oreilly catheter in situ and recommended to titrate urine output. -Avoid nephrotoxic medication and renally dose medication # History of myasthenia gravis status post thymectomy -Patient does not appear to be in myasthenic crisis as of now -Resumed his home medication pyridostigmine 60 Mg p.o. 6 hourly -Avoid macrolides, aminoglycosides and fluoroquinolones # Complicated UTI secondary to catheter related # Neurogenic bladder secondary to paraplegia # BPH -Patient had previous history of nephrolithiasis, UTI and JAEL -Patient presented with fever, tested positive for influenza A, urine analysis showed turbid urine with 1+ proteinuria, 141 WBC, 2+ urine bacteria -Patient is having Oreilly catheter since 2017 and last Oreilly change was 1 week before the hospitalization -Patient does have paraplegia and is not able to perceive sensations below the umbilicus and he does not endorse any burning micturition -Patient received a dose of ceftriaxone in the ED Plan -Urine cultures were sent, pending result -New Oreilly catheter was placed -Resumed tamsulosin -Started on cephalexin 500 Mg p.o. twice daily in view of complicated UTI as it is safe to give in myasthenia gravis -Will change antibiotic if needed based on urine cultures #History of CAD s/p PCI -Patient was using aspirin and atorvastatin as home medication -Resumed his home medications. # Chronic peripheral neuropathy -Patient is using gabapentin 800 Mg p.o. 3 times daily, duloxetine 30 Mg p.o. at bedtime and amitriptyline 50 Mg p.o. daily -Still complaining of severe tingling of bilateral lower extremities mainly around the foot -Resumed gabapentin 300 mg 3 times daily, will uptitrate if needed. -B12, folate normal -Resumed multivitamin # History of hypertension -Patient is using amlodipine 2.5 mg as home medication -Blood pressure at the time of admission is 117/68 mmHg -Resume his home medication # History of type 2 diabetes mellitus, not on treatment -Patient is not using any oral hypoglycemic drugs or insulin -A1c on 08/2023 is 5.5. -Monitor daily blood glucose Hospital Maintenance: Dispo: Med/tele DVT ppx: Heparin GI ppx: Protonix Diet: Low-salt IV lines: Peripheral Code status: Full code Case discussed with Attending Dr. Sauceda. Dyllan Pradhan PGY1
[2024-04-04] MEDS: oxyCODONE/APAP 5/325 TABLET 2 TAB PO (12:29)
[2024-04-04] MEDS: amLODIPine BESYLATE 2.5 MG TABLET PO (12:29)
[2024-04-04] MEDS: ATORVASTATIN CALCIUM 20 MG TABLET 40 MG PO (21:59)
[2024-04-04] MEDS: MAGNESIUM OXIDE 400 MG TABLET PO (22:01)
[2024-04-04] MEDS: DULoxetine HCL 30 MG CAPSULE PO (22:02)
[2024-04-05] VITALS (12 sets, daily range): BP systolic 109–167; BP diastolic 55–76; PULSE 62–80; RESP 16–20; TEMP 36–36.4; O2SAT 90–100; BMI 36.7
[2024-04-05] MEDS: SODIUM CL RT SOL 3% 4 ML NEBU (NON-FORMULARY) INH ×4 (01:20→19:05)
[2024-04-05] MEDS: ALBUTEROL/IPRATROPIUM (Duoneb) RT SOL 3 ML NEBU INH ×4 (01:20→19:05)
[2024-04-05] MEDS: pyRIDostigmine bromide 60 MG TABLET PO ×4 (02:59→21:02)
[2024-04-05] MEDS: oxyCODONE/APAP 5/325 TABLET 2 TAB PO ×4 (03:50→21:54)
[2024-04-05] MEDS: tiZANidine HCL 2 MG TABLET 4 MG PO ×4 (05:34→21:02)
[2024-04-05] MEDS: GABAPENTIN 300 MG CAPSULE PO ×3 (05:35→21:02)
[2024-04-05] MEDS: HEPARIN SOD INJ 5000 UNIT/ML VIAL SC ×3 (05:35→21:06)
[2024-04-05 05:51] LABS: Basophils % (Auto) 0 % (0-2.5); Eosinophils # (Auto) 0.1 Thou/mm3 (0.0-0.5); Eosinophils % (Auto) 2 % (0-10); Hematocrit 42.1 % (41.0-53.0); Hemoglobin 12.7 g/dL (13.5-16.0); Immature Granulocytes % (Auto) 1 % (0-0); Immature Granulocytes Auto 0.03 Thou/mm3 (0.00-0.00); Lymphocytes % (Auto) 18 % (10-50); Mean Corpuscular HGB Conc 30.2 g/dl (31.0-37.0); Mean Corpuscular Hemoglobin 25.6 pg (25.0-35.0); Mean Corpuscular Volume 85 fL (80-100); Monocytes # (Auto) 0.4 Thou/mm3 (0.0-0.8); Monocytes % (Auto) 8 % (0-12); Neutrophils # (Auto) 3.9 Thou/mm3 (1.8-7.7); Neutrophils % (Auto) 71 % (37-80); Nucleated Red Blood Cell % 0 /100 WBC (0); Platelet Count 239 Thou/mm3 (140-440); RDW Standard Deviation 47.2 fL (35.1-43.9); Red Blood Count 4.97 Miln/mm3 (4.50-5.90); White Blood Count 5.5 Thou/mm3 (3.8-10.6)
[2024-04-05 06:17] LABS: Anion Gap 5 (7-16); BUN/Creatinine Ratio 23 Ratio (12-20); Blood Urea Nitrogen 25 mg/dL (9-23); Carbon Dioxide 31.3 mMol/L (20.0-31.0); Chloride 102 mMol/L (98-107); Creatinine (Component) 1.1 mg/dL (0.6-1.3); Estimated Creatinine Clearance 69.5 mL/min (>60); Glucose 107 mg/dL (74-106); Osmolality,Calculated 280 (275-295); Potassium 4.2 mMol/L (3.4-5.1); Sodium 138 mMol/L (136-145); eGFR > 60 See Note
[2024-04-05] MEDS: ASPIRIN 81 MG CHEW PO (09:59)
[2024-04-05] MEDS: FENOFIBRATE 145 MG TABLET (NON-FORMULARY) PO (09:59)
[2024-04-05] MEDS: MULTIVITAMINS TABLET 1 TAB PO (10:00)
[2024-04-05] MEDS: cephALEXin 250 MG CAPSULE 500 MG PO ×2 (10:00→21:00)
[2024-04-05] MEDS: rOPINIRole HCL 1 MG TABLET PO ×2 (10:00→21:01)
[2024-04-05] MEDS: OSELTAMIVIR 75 MG CAPSULE PO ×2 (10:00→21:01)
[2024-04-05] MEDS: TAMSULOSIN HCL 0.4 MG CAPSULE PO ×2 (10:00→21:02)
[2024-04-05] MEDS: PANTOPRAZOLE 40 MG TABLET PO (10:00)
[2024-04-05] MEDS: FOLIC ACID 1 MG TABLET PO (10:01)
[2024-04-05] MEDS: amLODIPine BESYLATE 2.5 MG TABLET PO (10:01)
[2024-04-05] MEDS: AMITRIPTYLINE HCL 25 MG TABLET 50 MG PO (10:01)
[2024-04-05] MEDS: DOCUSATE SOD 250 MG CAPSULE PO ×2 (10:02→21:00)
[2024-04-05] MEDS: THIAMINE 100 MG TABLET PO (10:02)
[2024-04-05] MEDS: POLYETHYLENE GLYCOL 17 GM PACKET PO (10:02)
[2024-04-05] MEDS: DOXYCYCLINE 100 MG TABLET PO ×2 (10:02→21:00)
--- NOTE | 2024-04-05 10:12 | PC.SS ---
Follow up note: Pt is from [facility] and will return at d/c. SS was informed by Beth at [facility] pt does not require insurance authorization due now having Medicare. Pt is on 1 liter of O2.
--- NOTE | 2024-04-05 11:56 | PC.NURSE ---
Discharge orders were put in this morning at 10:35. Pt was taken on NC and on RA. Pt desated down to 85. Placed NC at 1 L on pt and O2 went back up to 93. Made aware. will reassess.
--- NOTE | 2024-04-05 12:54 | ESDS_ITS ---
<Statement entered by Andres Sauceda MD - 04/09/24 14:16> I reviewed above note and agree with findings and plans. I have also personally examined the patient with medicine team and went over assessment and plan with medical team including paid internship and resident physician. Planned Discharge Date 04/05/24 DS: Providers Provider Date of admission: 04/02/24 23:02 Primary care physician: Leonides Amanda MD Admitting Provider: Amando Martinez MD Attending Provider on Admission: Andres Sauceda MD Consults: 04/02/24 23:13 Referral Physical Therapy Routine Comment: Physician Instructions: Attending Provider on DC: Carlita De MD Discharging Provider: Carlita De MD DS: Diagnosis Problem List Completed Was Problem List Reviewed/Reconciled?: Yes Hospital Course Hospital Course Hospital course: Mr. Cross is a 68-year-old male with past medical history of myasthenia gravis status post thymectomy, hypertension, type 2 diabetes paraplegia status post 2 spinal surgeries, peripheral neuropathy, nephrolithiasis, neurogenic bladder, CAD status post PCI, BPH, chronic pain who lives at [facility] rehab since 2017 and was brought to [facility] with a chief complaint of fever, hypoxia, cough. Patient was found to have influenza A upon admission and was started on Tamiflu. During the course of his hospitalization patient remained afebrile and stated that he would like to work with physical therapy. Respiratory cultures ordered for the patient did not grow bacteria so no antibiotic therapy was recommended upon discharge. Isolation precautions were discontinued for the patient and no further antiviral therapy will be continued. Patient has returned to baseline health is medically cleared for discharge. Recommend to continue with physical/occupational therapy for improvement in mobility. Plan for discharge discussed with supervising attending Dr. Komal De M.D. PGY-3 Summary: Mr. Cross is a 68-year-old male with significant past medical history of myasthenia gravis s/p thymectomy, hypertension, type 2 diabetes mellitus not on any medication, paraplegia status post 2 spinal surgeries, peripheral neuropathy, nephrolithiasis, possible TIMUR, neurogenic bladder, ?history of CAD s/p PCI, BPH, chronic pain who is living in [facility] rehab center since 2017 was brought to the hospital with chief complaints of fever, low oxygen saturations and cough. # Acute hypoxic respiratory failure # SIRS positive 05/07 # Secondary to influenza A # Suspected underlying TIMUR/OHS -Patient endorses that he is having febrile episodes since 3 days and temporarily relieved with Tylenol -Also complaining of cough with sputum which is clear and mucoid -Denies shortness of breath, abdominal pain, vomiting, burning micturition. -Patient was noted to have low oxygen saturations on the day of admission in the facility and was started on oxygen through nasal cannula -In the ED, patient was found to have temperature of 102.1 ?F, SpO2 94% with 4 L oxygen through nasal cannula, tachycardic heart rate 117 on presentation -Labs remarkable for creatinine 1.7, lactate 2.4, AST 39. Urine analysis showed turbid urine with 141 WBC, urinary bacteria -Chest x-ray did not show any infiltrates -Tested positive for influenza A. Negative for influenza B and COVID -Patient received a dose of ceftriaxone in view of suspected UTI, Tylenol and IV fluids Plan -Continue Tamiflu 75 Mg p.o. twice daily [04/02-for 5 days] -Continue doxycycline 100 mg p.o. twice daily for MRSA coverage -Nebulizations as needed, DuoNeb as needed -Head end elevation of the bed -Acetaminophen as needed -Oxygen inhalation as needed # CKD stage III # Dehydration -Started on maintenance fluids -Patient was found to have elevated creatinine and low GFR since 08/2023 -Creatinine as of 04/02/2024 is 1.7 -Patient denies any history of kidney disease -Renal ultrasound significant for moderate bilateral renal parenchymal scar formation. -Oreilly catheter in situ and recommended to titrate urine output. -Avoid nephrotoxic medication and renally dose medication # History of myasthenia gravis status post thymectomy -Patient does not appear to be in myasthenic crisis as of now -Resumed his home medication pyridostigmine 60 Mg p.o. 6 hourly -Avoid macrolides, aminoglycosides and fluoroquinolones # Complicated UTI secondary to catheter related # Neurogenic bladder secondary to paraplegia # BPH -Patient had previous history of nephrolithiasis, UTI and JAEL -Patient presented with fever, tested positive for influenza A, urine analysis showed turbid urine with 1+ proteinuria, 141 WBC, 2+ urine bacteria -Patient is having Oreilly catheter since 2017 and last Oreilly change was 1 week before the hospitalization -Patient does have paraplegia and is not able to perceive sensations below the umbilicus and he does not endorse any burning micturition -Patient received a dose of ceftriaxone in the ED Plan -Urine cultures were sent, pending result -New Oreilly catheter was placed -Resumed tamsulosin -Started on cephalexin 500 Mg p.o. twice daily in view of complicated UTI as it is safe to give in myasthenia gravis -Will change antibiotic if needed based on urine cultures #History of CAD s/p PCI -Patient was using aspirin and atorvastatin as home medication -Resumed his home medications. # Chronic peripheral neuropathy -Patient is using gabapentin 800 Mg p.o. 3 times daily, duloxetine 30 Mg p.o. at bedtime and amitriptyline 50 Mg p.o. daily -Still complaining of severe tingling of bilateral lower extremities mainly around the foot -Resumed gabapentin 300 mg 3 times daily, will uptitrate if needed. -B12, folate normal -Resumed multivitamin # History of hypertension -Patient is using amlodipine 2.5 mg as home medication -Blood pressure at the time of admission is 117/68 mmHg -Resume his home medication # History of type 2 diabetes mellitus, not on treatment -Patient is not using any oral hypoglycemic drugs or insulin -A1c on 08/2023 is 5.5. -Monitor daily blood glucose Hospital Maintenance: Dispo: Med/tele DVT ppx: Heparin GI ppx: Protonix Diet: Low-salt IV lines: Peripheral Code status: Full code Status at Discharge Functional status at discharge: bed bound Overall status at discharge: patient is progressing back to baseline Time Spent with Patient Time attestation: Total time spent providing and/or coordinating discharge services: Time spent: Greater than 30 minutes Exam Vital Signs Temp Pulse Resp BP Pulse Ox O2 Del Method O2 Flow Rate 97.3 F 75 16 158/71 H 99 Nasal Cannula 1 04/05/24 08:00 04/05/24 12:02 04/05/24 12:02 04/05/24 10:01 04/05/24 12:02 04/05/24 08:00 04/05/24 12:02 Discharge Plan Plan Patient Disposition: Xfer Skilled Nsg Fac (SNF) Patient condition on transfer: Stable Care Plan Goals: Patient is medically cleared for discharge Is recommended to follow-up with PCP in regards to recent hospitalization Patient will benefit from physical therapy/Occupational Therapy to better mobilize and improve strength. [facility] Prescriptions/Referrals Prescriptions/Med Rec: Continued atorvastatin [Lipitor] 40 MG tablet 40 mg PO HS Qty: 0 folic acid 1 mg Tablet 1 mg PO QDAY pyridostigmine bromide 60 mg tablet 60 mg PO Q6H Glucagon Emergency Kit (human) 1 mg recon soln 1 mg subcut DAILY aspirin 81 mg Capsule 81 mg PO QDAY multivitamin Tablet 1 tab PO QDAY acetaminophen [Tylenol] 325 mg Tablet 325 mg PO Q8H PRN (Reason: breaktrhough pain) ondansetron HCl 4 mg Tablet 4 mg PO Q6H PRN (Reason: NAUSEA OR VOMITNG) thiamine HCl (vitamin B1) 100 mg Tablet 100 mg PO QDAY magnesium hydroxide [Milk of Magnesia] 400 mg/5 mL Suspension 30 ml PO QDAY PRN (Reason: Constipation) ascorbic acid (vitamin C) 500 mg Tablet 500 mg PO BID bisacodyl [Dulcolax (bisacodyl)] 10 mg Suppository 10 mg ME Q72H PRN (Reason: Constipation) albuterol 90 mcg/actuation Aerosol 180 mcg INHALATION Q4H PRN (Reason: SOB) docusate sodium 250 mg Capsule 250 mg PO BID cholecalciferol (vitamin D3) [Vitamin D3] 25 mcg (1,000 unit) Tablet 50 mcg PO QDAY cranberry 450 mg Tablet 425 mg PO QDAY Rx Instructions: administer with a meal magnesium oxide 400 mg magnesium Tablet 400 mg PO HS oxycodone-acetaminophen 7.5-325 mg tablet 1 tab Q6H PRN (Reason: Severe Pain (Scale Score 7-10)) ropinirole 1 mg tablet 1 mg PO BID gabapentin 800 mg Tablet 800 mg PO TID cranberry 405 mg Capsule 425 mg oxycodone-acetaminophen 7.5-325 mg tablet 1 tab PO 4XD duloxetine 30 mg capsule,delayed release(DR/EC) 30 mg PO HS tizanidine 4 mg tablet 4 mg PO QID amlodipine 2.5 mg tablet 2.5 mg PO QDAY Rx Instructions: HOLD FOR SBP<100 OR DBP<50 tamsulosin 0.4 mg capsule 0.4 mg PO BID calcium acetate(phosphat bind) 667 mg capsule 667 mg PO TIDWM fenofibrate nanocrystallized 145 mg tablet 145 mg PO QDAY amitriptyline 50 mg tablet 50 mg PO QDAY polyethylene glycol 3350 [HealthyLax] 17 gram Powder In Packet 17 g PO BID 30 Days Qty: 100 6RF Discontinued oxycodone-acetaminophen [Percocet] 5-325 mg Tablet 1 tab PO Q6H PRN (Reason: Pain (Scale Score 7-10)) Referrals: Leonides Amanda MD [Primary Care Provider] - Patient/Caregiver Discharge Instructions Print Language: Macedonian Stand Alone Forms: [employer] Award Info., Patient Portal Info Letter Discharge Order Discharge Orders: Discharge (Routine); Ordered 04/05/24 Ordered By: Carlita De Quality Discharge Quality Measures none
--- NOTE | 2024-04-05 13:53 | PC.SS ---
Addendum entered by Eileen Lopez 04/05/24 14:37: SS spoke to Beth at [facility] they are unable to accept pt today. Beth at [facility] states pt has to complete 5 day course of Tamiflu and has to been off isolation precaution for 24 hours. Physician residents are aware. Transportation was set with [facility] for 5pm to [facility]. SS has spoken to Judy from [facility] and [facility]. Original Note: SS has spoken to Beth at [facility] who states pt must finish Tamiflu medications and be 24 hours off isolation precaution ([facility] does not have isolation beds) to accept pt back. Per physicians residents, pt does not require isolation since this morning and Tamiflu medication is completed (Beth at [facility] is aware). SS has updated information to [facility] using [employer].
--- NOTE | 2024-04-05 15:32 | ESPR_ITS ---
<Statement entered by Andres Sauceda MD - 04/09/24 14:18> I reviewed above note and agree with findings and plans. I have also personally examined the patient with medicine team and went over assessment and plan with medical team including improvement intern and resident physician. Documentation for date of: 04/05/24 Subjective Subjective Interval history: Patient has returned to baseline health and isolation precautions have been discontinued. Patient is on Tamiflu and according to his care home facility they cannot take the patient on Tamiflu due to the fact that they do not have isolation rooms available. So patient will remain admitted to the hospital until Monday when they will accept him back. Exam Vital Signs Temp Pulse Resp BP Pulse Ox O2 Del Method O2 Flow Rate 96.8 F 75 16 167/75 H 99 Nasal Cannula 1 04/05/24 12:00 04/05/24 12:02 04/05/24 12:02 04/05/24 12:00 04/05/24 12:02 04/05/24 12:04/05/24 12:02 Narrative Exam General: Awake. Obese patient lying on the bed with oxygen through nasal cannula. HEENT: Normocephalic, atraumatic, mucous membranes moist. Heart: Regular rate and rhythm, no murmurs. Lungs: Overall decreased breath sounds are noted due to body habitus. Abdomen: Soft, nondistended, nontender, positive bowel sounds. ?No guarding or rebound tenderness. Neurologic: Alert and oriented x3, power is 0 in bilateral lower extremities with absent sensations below umbilicus. Extremities: No edema. Skin: No rash or ecchymoses. Scar noted on mid chest. Objective Labs 04/05/24 05:06 04/05/24 05:06 Labs: Laboratory Results - last 24 hr 04/05/24 05:06 WBC 5.5 RBC 4.97 Hgb 12.7 L Hct 42.1 MCV 85 MCH 25.6 MCHC 30.2 L RDW Std Deviation 47.2 H Plt Count 239 Neut % (Auto) 71 Lymph % (Auto) 18 [place] % (Auto) 8 Eos % (Auto) 2 Baso % (Auto) 0 Neut # (Auto) 3.9 Lymph # (Auto) 1.0 [place] # (Auto) 0.4 Eos # (Auto) 0.1 Baso # (Auto) 0.0 Immature Gran # (Auto) 0.03 H Absolute Nucleated RBC 0.00 Immature Gran % 1 H Nucleated RBC % 0 Sodium 138 Potassium 4.2 D Chloride 102 Carbon Dioxide 31.3 H Anion Gap 5 L BUN 25 H Creatinine 1.1 Estim Creat Clear Calc 69.5 eGFR > 60 BUN/Creatinine Ratio 23 H Glucose 107 H Calculated Osmolality 280 Calcium 9.0 Quality Measures Quality Measures none Advance care planning discussed with:: patient Assessment & Plan Assessment Current Active Medications: Generic Name Dose Route Start Last Admin Trade Name Freq PRN Reason Stop Dose Admin Acetaminophen 650 mg 04/03/24 10:56 Acetaminophen 325 Mg Tablet PO 05/02/24 23:01 Q6H PRN Fever >101.5 Albuterol/Ipratropium 3 ml 04/03/24 01:00 04/05/24 12:01 Albuterol/Ipratropium (Duoneb) Rt Rajani 3 Ml Nebu INH 05/03/24 00:59 3 ml Q6HRRT CARMITA Administration Amitriptyline HCl 50 mg 04/04/24 09:00 04/05/24 10:01 Amitriptyline Hcl 25 Mg Tablet PO 05/04/24 08:59 50 mg QDAY CARMITA Administration Amlodipine Besylate 2.5 mg 04/03/24 09:00 04/05/24 10:01 Amlodipine Besylate 2.5 Mg Tablet PO 05/03/24 08:59 2.5 mg QDAY CARMITA Administration Aspirin 81 mg 04/03/24 09:00 04/05/24 09:59 Aspirin 81 Mg Chew PO 05/03/24 08:59 81 mg QDAY CARMITA Administration Atorvastatin Calcium 40 mg 04/03/24 21:00 04/04/24 21:59 Atorvastatin Calcium 20 Mg Tablet PO 05/03/24 20:59 40 mg HS CARMITA Administration Cephalexin HCl 500 mg 04/03/24 09:00 04/05/24 10:00 Cephalexin 250 Mg Capsule PO 04/10/24 08:59 500 mg BID CARMITA Administration Docusate Sodium 250 mg 04/03/24 09:00 04/05/24 10:02 Docusate Sod 250 Mg Capsule PO 05/03/24 08:59 250 mg BID CARMITA Administration Protocol Doxycycline Hyclate 100 mg 04/03/24 11:00 04/05/24 10:02 Doxycycline 100 Mg Tablet PO 04/10/24 10:59 100 mg BID CARMITA Administration Duloxetine HCl 30 mg 04/03/24 21:00 04/04/24 22:02 Duloxetine Hcl 30 Mg Capsule PO 05/03/24 20:59 30 mg HS CARMITA Administration Fenofibrate 145 mg 04/03/24 09:00 04/05/24 09:59 Fenofibrate 145 Mg Tablet (Non-Formulary) PO 05/03/24 08:59 145 mg QDAY CARMITA Administration Folic Acid 1 mg 04/03/24 09:00 04/05/24 10:01 Folic Acid 1 Mg Tablet PO 05/03/24 08:59 1 mg QDAY CARMITA Administration Gabapentin 300 mg 04/03/24 14:00 04/05/24 13:38 Gabapentin 300 Mg Capsule PO 05/03/24 13:59 300 mg TID CARMITA Administration Heparin Sodium (Porcine) 5,000 unit 04/03/24 06:00 04/05/24 13:38 Heparin Sod Inj 5000 Unit/Ml Vial SC 04/17/24 05:59 5,000 unit Q8HR CARMITA Administration Magnesium Hydroxide 30 ml 04/03/24 03:07 Milk Of Magnesia Susp 30 Ml Udc PO 05/03/24 03:06 QDAY PRN Constipation Protocol Magnesium Oxide 400 mg 04/03/24 21:00 04/04/24 22:01 Magnesium Oxide 400 Mg Tablet PO 05/03/24 20:59 400 mg HS CARMITA Administration Multivitamins 1 tab 04/03/24 09:00 04/05/24 10:00 Multivitamins Tablet PO 05/03/24 08:59 1 tab QDAY CARMITA Administration Ondansetron HCl 4 mg 04/02/24 23:02 04/04/24 04:56 Ondansetron Inj 2 Mg/Ml Inj 2 Ml IV 05/02/24 23:01 4 mg Q6H PRN Administration NAUSEA OR VOMITING Protocol Oseltamivir Phosphate 75 mg 04/02/24 23:45 04/05/24 10:00 Oseltamivir 75 Mg Capsule PO 04/07/24 09:01 75 mg BID CARMITA Administration Oxycodone/Acetaminophen 2 tab 04/03/24 03:15 04/05/24 10:00 Oxycodone/Apap 5/325 Tablet PO 04/08/24 03:14 2 tab Q6HR PRN Administration PAIN SCALE 4-10(Mod-Sev Pantoprazole Sodium 40 mg 04/03/24 09:00 04/05/24 10:00 Pantoprazole 40 Mg Tablet PO 05/03/24 08:59 40 mg QDAY CARMITA Administration Polyethylene Glycol 17 gm 04/03/24 09:00 04/05/24 10:02 Polyethylene Glycol 17 Gm Packet PO 05/03/24 08:59 17 gm BID CARMITA Administration Pyridostigmine [place] 60 mg 04/03/24 03:15 04/05/24 14:18 Pyridostigmine [place] 60 Mg Tablet PO 05/03/24 03:14 60 mg Q6H CARMITA Administration Ropinirole HCl 1 mg 04/03/24 09:00 04/05/24 10:00 Ropinirole Hcl 1 Mg Tablet PO 05/03/24 08:59 1 mg BID CARMITA Administration Sodium Chloride 4 ml 04/03/24 01:00 04/05/24 12:01 Sodium Cl Rt Rajani 3% 4 Ml Nebu (Non-Formulary) INH 05/03/24 00:59 4 ml Q6HRRT CARMITA Administration Tamsulosin HCl 0.4 mg 04/03/24 09:00 04/05/24 10:00 Tamsulosin Hcl 0.4 Mg Capsule PO 05/03/24 08:59 0.4 mg BID CARMITA Administration Thiamine HCl 100 mg 04/03/24 09:00 04/05/24 10:02 Thiamine 100 Mg Tablet PO 05/03/24 08:59 100 mg QDAY CARMITA Administration Tizanidine HCl 4 mg 04/03/24 06:00 04/05/24 12:27 Tizanidine Hcl 2 Mg Tablet PO 05/03/24 05:59 4 mg QID CARMITA Administration Plan Summary: Mr. Cross is a 68-year-old male with significant past medical history of myasthenia gravis s/p thymectomy, hypertension, type 2 diabetes mellitus not on any medication, paraplegia status post 2 spinal surgeries, peripheral neuropathy, nephrolithiasis, possible TIMUR, neurogenic bladder, ?history of CAD s/p PCI, BPH, chronic pain who is living in [facility] rehab center since 2017 was brought to the hospital with chief complaints of fever, low oxygen saturations and cough. # Acute hypoxic respiratory failure # SIRS positive 2/4 # Secondary to influenza A # Suspected underlying TIMUR/OHS -Patient endorses that he is having febrile episodes since 3 days and temporarily relieved with Tylenol -Also complaining of cough with sputum which is clear and mucoid -Denies shortness of breath, abdominal pain, vomiting, burning micturition. -Patient was noted to have low oxygen saturations on the day of admission in the facility and was started on oxygen through nasal cannula -In the ED, patient was found to have temperature of 102.1 ?F, SpO2 94% with 4 L oxygen through nasal cannula, tachycardic heart rate 117 on presentation -Labs remarkable for creatinine 1.7, lactate 2.4, AST 39. Urine analysis showed turbid urine with 141 WBC, urinary bacteria -Chest x-ray did not show any infiltrates -Tested positive for influenza A. Negative for influenza B and COVID -Patient received a dose of ceftriaxone in view of suspected UTI, Tylenol and IV fluids Plan -Continue Tamiflu 75 Mg p.o. twice daily [04/02-for 5 days] -Continue doxycycline 100 mg p.o. twice daily for MRSA coverage -Nebulizations as needed, DuoNeb as needed -Head end elevation of the bed -Acetaminophen as needed -Oxygen inhalation as needed ?Patient to be discharged on April 07 after completion of Tamiflu back to rehab facility. # CKD stage III # Dehydration -Started on maintenance fluids -Patient was found to have elevated creatinine and low GFR since 08/2023 -Patient denies any history of kidney disease -Renal ultrasound significant for moderate bilateral renal parenchymal scar formation. -Oreilly catheter in situ and recommended to titrate urine output. -Avoid nephrotoxic medication and renally dose medication # History of myasthenia gravis status post thymectomy -Patient does not appear to be in myasthenic crisis as of now -Resumed his home medication pyridostigmine 60 Mg p.o. 6 hourly -Avoid macrolides, aminoglycosides and fluoroquinolones # Complicated UTI secondary to catheter related # Neurogenic bladder secondary to paraplegia # BPH -Patient had previous history of nephrolithiasis, UTI and JAEL -Patient presented with fever, tested positive for influenza A, urine analysis showed turbid urine with 1+ proteinuria, 141 WBC, 2+ urine bacteria -Patient is having Oreilly catheter since 2017 and last Oreilly change was 1 week before the hospitalization -Patient does have paraplegia and is not able to perceive sensations below the umbilicus and he does not endorse any burning micturition -Patient received a dose of ceftriaxone in the ED Plan Urine cultures were ordered but never sent and now the antibiotic therapy has been started likely to have any benefit in ordering now -New Oreilly catheter was placed -Resumed tamsulosin -Started on cephalexin 500 Mg p.o. twice daily in view of complicated UTI as it is safe to give in myasthenia gravis -Will change antibiotic if needed based on urine cultures #History of CAD s/p PCI -Patient was using aspirin and atorvastatin as home medication -Resumed his home medications. # Chronic peripheral neuropathy -Patient is using gabapentin 800 Mg p.o. 3 times daily, duloxetine 30 Mg p.o. at bedtime and amitriptyline 50 Mg p.o. daily -Still complaining of severe tingling of bilateral lower extremities mainly around the foot -Resumed gabapentin 300 mg 3 times daily, will uptitrate if needed. -B12, folate normal -Resumed multivitamin # History of hypertension -Patient is using amlodipine 2.5 mg as home medication -Blood pressure at the time of admission is 117/68 mmHg -Resume his home medication # History of type 2 diabetes mellitus, not on treatment -Patient is not using any oral hypoglycemic drugs or insulin -A1c on 08/2023 is 5.5. -Monitor daily blood glucose Hospital Maintenance: Dispo: Med/tele DVT ppx: Heparin GI ppx: Protonix Diet: Low-salt IV lines: Peripheral Code status: Full code Case discussed with Attending Dr. Sauceda.
[2024-04-05] MEDS: ATORVASTATIN CALCIUM 20 MG TABLET 40 MG PO (21:00)
[2024-04-05] MEDS: DULoxetine HCL 30 MG CAPSULE PO (21:01)
[2024-04-05] MEDS: MAGNESIUM OXIDE 400 MG TABLET PO (21:01)
[2024-04-06] VITALS (13 sets, daily range): BP systolic 124–195; BP diastolic 71–94; PULSE 64–80; RESP 14–20; TEMP 36.1–36.2; O2SAT 91–100; BMI 36.7; BMI 36.5
[2024-04-06] MEDS: ALBUTEROL/IPRATROPIUM (Duoneb) RT SOL 3 ML NEBU INH ×4 (00:21→18:26)
[2024-04-06] MEDS: SODIUM CL RT SOL 3% 4 ML NEBU (NON-FORMULARY) INH ×4 (00:22→18:27)
[2024-04-06] MEDS: oxyCODONE/APAP 5/325 TABLET 2 TAB PO ×4 (04:04→23:12)
[2024-04-06] MEDS: pyRIDostigmine bromide 60 MG TABLET PO ×4 (04:05→21:11)
[2024-04-06] MEDS: tiZANidine HCL 2 MG TABLET 4 MG PO ×4 (05:30→21:11)
[2024-04-06] MEDS: GABAPENTIN 300 MG CAPSULE PO ×3 (05:30→18:08)
[2024-04-06] MEDS: HEPARIN SOD INJ 5000 UNIT/ML VIAL SC ×3 (05:33→21:20)
[2024-04-06] MEDS: AMITRIPTYLINE HCL 25 MG TABLET 50 MG PO (08:53)
[2024-04-06] MEDS: PANTOPRAZOLE 40 MG TABLET PO (08:54)
[2024-04-06] MEDS: amLODIPine BESYLATE 2.5 MG TABLET PO (08:54)
[2024-04-06] MEDS: DOCUSATE SOD 250 MG CAPSULE PO ×2 (08:54→21:10)
[2024-04-06] MEDS: cephALEXin 250 MG CAPSULE 500 MG PO ×2 (08:54→21:10)
[2024-04-06] MEDS: OSELTAMIVIR 75 MG CAPSULE PO ×2 (08:54→21:10)
[2024-04-06] MEDS: TAMSULOSIN HCL 0.4 MG CAPSULE PO ×2 (08:54→21:10)
[2024-04-06] MEDS: ASPIRIN 81 MG CHEW PO (08:54)
[2024-04-06] MEDS: THIAMINE 100 MG TABLET PO (08:55)
[2024-04-06] MEDS: rOPINIRole HCL 1 MG TABLET PO ×2 (08:55→21:11)
[2024-04-06] MEDS: FOLIC ACID 1 MG TABLET PO (08:55)
[2024-04-06] MEDS: MULTIVITAMINS TABLET 1 TAB PO (08:55)
[2024-04-06] MEDS: FENOFIBRATE 145 MG TABLET (NON-FORMULARY) PO (09:51)
[2024-04-06] MEDS: ACETAMINOPHEN 325 MG TABLET 650 MG PO (12:29)
--- NOTE | 2024-04-06 14:08 | ESPR_ITS ---
<Statement entered by Andres Sauceda MD - 04/09/24 14:22> I reviewed above note and agree with findings and plans. I have also personally examined the patient with medicine team and went over assessment and plan with medical team including graphics intern and resident physician. Documentation for date of: 04/06/24 Subjective Subjective Interval history: Patient seen at bedside today. He is doing very well down to 1 L via nasal cannula and likely does not require that but yesterday patient did desat so we can continue with goal of maintaining oxygen saturation above 92. Patient has 1 more dose of Tamiflu left for tomorrow and will be discharged following that back to his [facility] facility. Patient is improving very well and quickly. Doxycycline was discontinued today. Exam Vital Signs Temp Pulse Resp BP Pulse Ox O2 Del Method O2 Flow Rate 97.0 F 71 20 194/94 H 100 Nasal Cannula 1 04/06/24 12:00 04/06/24 12:18 04/06/24 12:18 04/06/24 12:00 04/06/24 12:18 04/06/24 12:00 04/06/24 12:18 Narrative Exam General: Awake. Obese patient lying on the bed with oxygen through nasal cannula. HEENT: Normocephalic, atraumatic, mucous membranes moist. Heart: Regular rate and rhythm, no murmurs. Lungs: Overall decreased breath sounds are noted due to body habitus. Abdomen: Soft, nondistended, nontender, positive bowel sounds. ?No guarding or rebound tenderness. Neurologic: Alert and oriented x3, power is 0 in bilateral lower extremities with absent sensations below umbilicus. Extremities: No edema. Skin: No rash or ecchymoses. Scar noted on mid chest. Objective Labs 04/05/24 05:06 04/05/24 05:06 Quality Measures Quality Measures none Advance care planning discussed with:: patient Assessment & Plan Assessment Current Active Medications: Generic Name Dose Route Start Last Admin Trade Name Freq PRN Reason Stop Dose Admin Acetaminophen 650 mg 04/03/24 10:56 04/06/24 12:29 Acetaminophen 325 Mg Tablet PO 05/02/24 23:01 650 mg Q6H PRN Administration Fever >101.5 Albuterol/Ipratropium 3 ml 04/03/24 01:00 04/06/24 12:17 Albuterol/Ipratropium (Duoneb) Rt Rajani 3 Ml Nebu INH 05/03/24 00:59 3 ml Q6HRRT CARMITA Administration Amitriptyline HCl 50 mg 04/04/24 09:00 04/06/24 08:53 Amitriptyline Hcl 25 Mg Tablet PO 05/04/24 08:59 50 mg QDAY CARMITA Administration Amlodipine Besylate 2.5 mg 04/03/24 09:00 04/06/24 08:54 Amlodipine Besylate 2.5 Mg Tablet PO 05/03/24 08:59 2.5 mg QDAY CARMITA Administration Aspirin 81 mg 04/03/24 09:00 04/06/24 08:54 Aspirin 81 Mg Chew PO 05/03/24 08:59 81 mg QDAY CARMITA Administration Atorvastatin Calcium 40 mg 04/03/24 21:00 04/05/24 21:00 Atorvastatin Calcium 20 Mg Tablet PO 05/03/24 20:59 40 mg HS CARMITA Administration Cephalexin HCl 500 mg 04/03/24 09:00 04/06/24 08:54 Cephalexin 250 Mg Capsule PO 04/10/24 08:59 500 mg BID CARMITA Administration Docusate Sodium 250 mg 04/03/24 09:00 04/06/24 08:54 Docusate Sod 250 Mg Capsule PO 05/03/24 08:59 250 mg BID CARMITA Administration Protocol Duloxetine HCl 30 mg 04/03/24 21:00 04/05/24 21:01 Duloxetine Hcl 30 Mg Capsule PO 05/03/24 20:59 30 mg HS CARMITA Administration Fenofibrate 145 mg 04/03/24 09:00 04/06/24 09:51 Fenofibrate 145 Mg Tablet (Non-Formulary) PO 05/03/24 08:59 145 mg QDAY CARMITA Administration Folic Acid 1 mg 04/03/24 09:00 04/06/24 08:55 Folic Acid 1 Mg Tablet PO 05/03/24 08:59 1 mg QDAY CARMITA Administration Gabapentin 300 mg 04/03/24 14:00 04/06/24 05:30 Gabapentin 300 Mg Capsule PO 05/03/24 13:59 300 mg TID CARMITA Administration Heparin Sodium (Porcine) 5,000 unit 04/03/24 06:00 04/06/24 05:33 Heparin Sod Inj 5000 Unit/Ml Vial SC 04/17/24 05:59 5,000 unit Q8HR CARMITA Administration Magnesium Hydroxide 30 ml 04/03/24 03:07 Milk Of Magnesia Susp 30 Ml Udc PO 05/03/24 03:06 QDAY PRN Constipation Protocol Magnesium Oxide 400 mg 04/03/24 21:00 04/05/24 21:01 Magnesium Oxide 400 Mg Tablet PO 05/03/24 20:59 400 mg HS CARMITA Administration Multivitamins 1 tab 04/03/24 09:00 04/06/24 08:55 Multivitamins Tablet PO 05/03/24 08:59 1 tab QDAY CARMITA Administration Ondansetron HCl 4 mg 04/02/24 23:02 04/04/24 04:56 Ondansetron Inj 2 Mg/Ml Inj 2 Ml IV 05/02/24 23:01 4 mg Q6H PRN Administration NAUSEA OR VOMITING Protocol Oseltamivir Phosphate 75 mg 04/02/24 23:45 04/06/24 08:54 Oseltamivir 75 Mg Capsule PO 04/07/24 09:01 75 mg BID CARMITA Administration Oxycodone/Acetaminophen 2 tab 04/03/24 03:15 04/06/24 10:15 Oxycodone/Apap 5/325 Tablet PO 04/08/24 03:14 2 tab Q6HR PRN Administration PAIN SCALE 4-10(Mod-Sev Pantoprazole Sodium 40 mg 04/03/24 09:00 04/06/24 08:54 Pantoprazole 40 Mg Tablet PO 05/03/24 08:59 40 mg QDAY CARMITA Administration Polyethylene Glycol 17 gm 04/03/24 09:00 04/06/24 08:55 Polyethylene Glycol 17 Gm Packet PO 05/03/24 08:59 Not Given BID CARMITA Pyridostigmine [place] 60 mg 04/03/24 03:15 04/06/24 09:51 Pyridostigmine [place] 60 Mg Tablet PO 05/03/24 03:14 60 mg Q6H CARMITA Administration Ropinirole HCl 1 mg 04/03/24 09:00 04/06/24 08:55 Ropinirole Hcl 1 Mg Tablet PO 05/03/24 08:59 1 mg BID CARMITA Administration Sodium Chloride 4 ml 04/03/24 01:00 04/06/24 12:17 Sodium Cl Rt Rajani 3% 4 Ml Nebu (Non-Formulary) INH 05/03/24 00:59 4 ml Q6HRRT CARMITA Administration Tamsulosin HCl 0.4 mg 04/03/24 09:00 04/06/24 08:54 Tamsulosin Hcl 0.4 Mg Capsule PO 05/03/24 08:59 0.4 mg BID CARMITA Administration Thiamine HCl 100 mg 04/03/24 09:00 04/06/24 08:55 Thiamine 100 Mg Tablet PO 05/03/24 08:59 100 mg QDAY CARMITA Administration Tizanidine HCl 4 mg 04/03/24 06:00 04/06/24 12:28 Tizanidine Hcl 2 Mg Tablet PO 05/03/24 05:59 4 mg QID CARMITA Administration Plan Summary: Mr. Cross is a 68-year-old male with significant past medical history of myasthenia gravis s/p thymectomy, hypertension, type 2 diabetes mellitus not on any medication, paraplegia status post 2 spinal surgeries, peripheral neuropathy, nephrolithiasis, possible TIMUR, neurogenic bladder, ?history of CAD s/p PCI, BPH, chronic pain who is living in [facility] rehab center since 2016 was brought to the hospital with chief complaints of fever, low oxygen saturations and cough. # Acute hypoxic respiratory failure # SIRS positive 05/07 # Secondary to influenza A # Suspected underlying TIMUR/OHS -Patient endorses that he is having febrile episodes since 3 days and temporarily relieved with Tylenol -Also complaining of cough with sputum which is clear and mucoid -Denies shortness of breath, abdominal pain, vomiting, burning micturition. -Patient was noted to have low oxygen saturations on the day of admission in the facility and was started on oxygen through nasal cannula -In the ED, patient was found to have temperature of 102.1 ?F, SpO2 94% with 4 L oxygen through nasal cannula, tachycardic heart rate 117 on presentation -Labs remarkable for creatinine 1.7, lactate 2.4, AST 39. Urine analysis showed turbid urine with 141 WBC, urinary bacteria -Chest x-ray did not show any infiltrates -Tested positive for influenza A. Negative for influenza B and COVID -Patient received a dose of ceftriaxone in view of suspected UTI, Tylenol and IV fluids Plan -Continue Tamiflu 75 Mg p.o. twice daily [04/02-for 5 days] with last dose being Monday -Doxycycline discontinued on April 06 -Nebulizations as needed, DuoNeb as needed -Head end elevation of the bed -Acetaminophen as needed -Oxygen inhalation as needed ?Patient to be discharged on April 07 after completion of Tamiflu back to rehab facility. No fevers noted. # CKD stage III # Dehydration -Started on maintenance fluids -Patient was found to have elevated creatinine and low GFR since 08/2023 -Patient denies any history of kidney disease -Renal ultrasound significant for moderate bilateral renal parenchymal scar formation. -Oreilly catheter in situ and recommended to titrate urine output. -Avoid nephrotoxic medication and renally dose medication # History of myasthenia gravis status post thymectomy -Patient does not appear to be in myasthenic crisis as of now -Resumed his home medication pyridostigmine 60 Mg p.o. 6 hourly -Avoid macrolides, aminoglycosides and fluoroquinolones # Complicated UTI secondary to catheter related # Neurogenic bladder secondary to paraplegia # BPH -Patient had previous history of nephrolithiasis, UTI and JAEL -Patient presented with fever, tested positive for influenza A, urine analysis showed turbid urine with 1+ proteinuria, 141 WBC, 2+ urine bacteria -Patient is having Oreilly catheter since 2016 and last Oreilly change was 1 week before the hospitalization -Patient does have paraplegia and is not able to perceive sensations below the umbilicus and he does not endorse any burning micturition -Patient received a dose of ceftriaxone in the ED Plan Urine cultures were ordered but never sent and now the antibiotic therapy has been started likely to have any benefit in ordering now -New Oreilly catheter was placed -Resumed tamsulosin -Will complete Keflex course and but cultures did not grow bacteria #History of CAD s/p PCI -Patient was using aspirin and atorvastatin as home medication -Resumed his home medications. # Chronic peripheral neuropathy -Patient is using gabapentin 800 Mg p.o. 3 times daily, duloxetine 30 Mg p.o. at bedtime and amitriptyline 50 Mg p.o. daily -Still complaining of severe tingling of bilateral lower extremities mainly around the foot -Resumed gabapentin 300 mg 3 times daily, will uptitrate if needed. -B12, folate normal -Resumed multivitamin # History of hypertension -Patient is using amlodipine 2.5 mg as home medication -Blood pressure at the time of admission is 117/68 mmHg -Resume his home medication # History of type 2 diabetes mellitus, not on treatment -Patient is not using any oral hypoglycemic drugs or insulin -A1c on 08/2023 is 5.5. -Monitor daily blood glucose Hospital Maintenance: Dispo: Med/tele DVT ppx: Heparin GI ppx: Protonix Diet: Low-salt IV lines: Peripheral Code status: Full code Plan of care discussed with supervising attending Dr. Komal De M.D. PGY-3
--- NOTE | 2024-04-06 17:52 | PC.NURSE ---
Dr. Miller made aware of blood pressure 195/94, MD will review chart, no new orders at this time
[2024-04-06] MEDS: HYDROmorphone INJ 2 MG/ML VIAL 0.25 MG IVP (18:08)
[2024-04-06] MEDS: MAGNESIUM OXIDE 400 MG TABLET PO (21:09)
[2024-04-06] MEDS: ATORVASTATIN CALCIUM 20 MG TABLET 40 MG PO (21:10)
[2024-04-06] MEDS: DULoxetine HCL 30 MG CAPSULE PO (21:10)
[2024-04-06] MEDS: GABAPENTIN 500 MG PO (21:19)
[2024-04-07] VITALS (10 sets, daily range): BP systolic 117–197; BP diastolic 74–92; PULSE 62–81; RESP 11–19; TEMP 36.1–36.4; O2SAT 91–100; BMI 36.7
[2024-04-07] MEDS: SODIUM CL RT SOL 3% 4 ML NEBU (NON-FORMULARY) INH ×2 (00:13→05:42)
[2024-04-07] MEDS: ALBUTEROL/IPRATROPIUM (Duoneb) RT SOL 3 ML NEBU INH ×2 (00:13→05:42)
[2024-04-07] MEDS: tiZANidine HCL 2 MG TABLET 4 MG PO ×2 (05:22→11:33)
[2024-04-07] MEDS: oxyCODONE/APAP 5/325 TABLET 2 TAB PO ×2 (05:22→11:33)
[2024-04-07] MEDS: GABAPENTIN 500 MG PO ×2 (05:23→13:33)
[2024-04-07] MEDS: HEPARIN SOD INJ 5000 UNIT/ML VIAL SC ×2 (05:24→13:33)
[2024-04-07 05:57] LABS: Basophils % (Auto) 1 % (0-2.5); Eosinophils # (Auto) 0.2 Thou/mm3 (0.0-0.5); Eosinophils % (Auto) 4 % (0-10); Hematocrit 46.4 % (41.0-53.0); Hemoglobin 13.9 g/dL (13.5-16.0); Immature Granulocytes % (Auto) 1 % (0-0); Immature Granulocytes Auto 0.05 Thou/mm3 (0.00-0.00); Lymphocytes # (Auto) 1.2 Thou/mm3 (1.0-4.8); Lymphocytes % (Auto) 25 % (10-50); Mean Corpuscular Hemoglobin 25.3 pg (25.0-35.0); Mean Corpuscular Volume 85 fL (80-100); Monocytes # (Auto) 0.3 Thou/mm3 (0.0-0.8); Monocytes % (Auto) 6 % (0-12); Neutrophils # (Auto) 3.1 Thou/mm3 (1.8-7.7); Neutrophils % (Auto) 63 % (37-80); Nucleated Red Blood Cell % 0 /100 WBC (0); Platelet Count 273 Thou/mm3 (140-440); RDW Standard Deviation 45.3 fL (35.1-43.9); Red Blood Count 5.49 Miln/mm3 (4.50-5.90); White Blood Count 4.9 Thou/mm3 (3.8-10.6)
[2024-04-07 06:11] LABS: Alanine Aminotransferase 22 U/L (10-49); Albumin, Serum 4.4 gm/dL (3.4-4.8); Albumin/Globulin Ratio 1.6 (1.2-2.2); Alkaline Phosphatase 63 U/L (46-116); Anion Gap 7 (7-16); Aspartate Amino Transferase 34 U/L (0-34); BUN/Creatinine Ratio 15 Ratio (12-20); Bilirubin,Total 0.2 mg/dL (0.3-1.2); Blood Urea Nitrogen 16 mg/dL (9-23); Calcium 9.3 mg/dL (8.3-10.6); Calcium (Corrected) 9.3 mg/dL (8.5-10.1); Carbon Dioxide 31.4 mMol/L (20.0-31.0); Chloride 102 mMol/L (98-107); Creatinine (Component) 1.1 mg/dL (0.6-1.3); Estimated Creatinine Clearance 69.5 mL/min (>60); Globulin 2.8 gm/dL (2.3-3.5); Glucose 102 mg/dL (74-106); Osmolality,Calculated 280 (275-295); Potassium 4.7 mMol/L (3.4-5.1); Sodium 140 mMol/L (136-145); Total Protein 7.2 gm/dL (5.7-8.2); eGFR > 60 See Note
[2024-04-07] MEDS: FENOFIBRATE 145 MG TABLET (NON-FORMULARY) PO (08:51)
[2024-04-07] MEDS: cephALEXin 250 MG CAPSULE 500 MG PO (08:51)
[2024-04-07] MEDS: ASPIRIN 81 MG CHEW PO (08:51)
[2024-04-07] MEDS: OSELTAMIVIR 75 MG CAPSULE PO (08:51)
[2024-04-07] MEDS: rOPINIRole HCL 1 MG TABLET PO (08:51)
[2024-04-07] MEDS: TAMSULOSIN HCL 0.4 MG CAPSULE PO (08:51)
[2024-04-07] MEDS: AMITRIPTYLINE HCL 25 MG TABLET 50 MG PO (08:51)
[2024-04-07] MEDS: DOCUSATE SOD 250 MG CAPSULE PO (08:51)
[2024-04-07] MEDS: PANTOPRAZOLE 40 MG TABLET PO (08:51)
[2024-04-07] MEDS: MULTIVITAMINS TABLET 1 TAB PO (08:52)
[2024-04-07] MEDS: amLODIPine BESYLATE 2.5 MG TABLET PO ×2 (08:52→11:33)
[2024-04-07] MEDS: THIAMINE 100 MG TABLET PO (08:52)
[2024-04-07] MEDS: FOLIC ACID 1 MG TABLET PO (08:52)
--- NOTE | 2024-04-07 12:55 | PC.SS ---
Agriculture Consultant (JOELLE) Sandy notified by Dr. Sauceda that patient was ready for discharge. SW contacted patient's daughter, Nir to discuss discharge plan. Patient is returning to [facility] via EMS. JOELLE contacted Admission Coordinator, Beth who is able to accept patient. JOELLE contacted [facility] and was informed that patient's transportation services are inactive; he needs to call [phone]. JOELLE notified Lunch Cook, Katiana who signed ADWOA. JOELLE completed PCS and ADWOA. JOELLE scheduled EMS for 1500. JOELLE notified bedside RN-Amy.
--- NOTE | 2024-04-07 18:55 | PD.RESDS ---
Planned Discharge Date 04/07/24 DS: Providers Provider Date of admission: 04/02/24 23:02 Primary care physician: Leonides Amanda MD Admitting Provider: Amando Martinez MD Attending Provider on Admission: Andres Sauceda MD Consults: 04/02/24 23:13 Referral Physical Therapy Routine Comment: Physician Instructions: Attending Provider on DC: Su Smith MD Discharging Provider: Su Smith MD DS: Diagnosis Problem List Completed Was Problem List Reviewed/Reconciled?: Yes Hospital Course Hospital Course Hospital course: Mr. Cross is a 68-year-old male with past medical history of myasthenia gravis status post thymectomy, hypertension, type 2 diabetes paraplegia status post 2 spinal surgeries, peripheral neuropathy, nephrolithiasis, neurogenic bladder, CAD status post PCI, BPH, chronic pain who lives at [facility] rehab since 2017 and was brought to [facility] ED on 04/02/24 with a chief complaint of fever, hypoxia, cough. Patient was found to have influenza A upon admission and was started on Tamiflu. During the course of his hospitalization patient remained afebrile however he required supplemental oxygen via nasal cannula and stated that he would like to work with physical therapy. Respiratory cultures ordered for the patient which did not grow bacteria so no antibiotic therapy was recommended upon discharge. Isolation precautions were discontinued for the patient and no further antiviral therapy will be continued ad patient received a course of 5 days of tamiflu. Patient has returned to baseline health is medically cleared for discharge. Recommend to continue with physical/occupational therapy for improvement in mobility. # Acute hypoxic respiratory failure # SIRS positive 2/ # Secondary to influenza A # Suspected underlying TIMUR/OHS -Patient endorses that he is having febrile episodes since 3 days and temporarily relieved with Tylenol -Also complaining of cough with sputum which is clear and mucoid -Denies shortness of breath, abdominal pain, vomiting, burning micturition. -Patient was noted to have low oxygen saturations on the day of admission in the facility and was started on oxygen through nasal cannula -In the ED, patient was found to have temperature of 102.1 ?F, SpO2 94% with 4 L oxygen through nasal cannula, tachycardic heart rate 117 on presentation -Labs remarkable for creatinine 1.7, lactate 2.4, AST 39. Urine analysis showed turbid urine with 141 WBC, urinary bacteria -Chest x-ray did not show any infiltrates -Tested positive for influenza A. Negative for influenza B and COVID -Patient received a dose of ceftriaxone in view of suspected UTI, Tylenol and IV fluids Plan -Continue Tamiflu 75 Mg p.o. twice daily [04/02-for 5 days] -Continue doxycycline 100 mg p.o. twice daily for MRSA coverage -Nebulizations as needed, DuoNeb as needed -Head end elevation of the bed -Acetaminophen as needed -Oxygen inhalation as needed # CKD stage III # Dehydration -Started on maintenance fluids -Patient was found to have elevated creatinine and low GFR since 08/2023 -Creatinine as of 04/02/2024 is 1.7 -Patient denies any history of kidney disease -Renal ultrasound significant for moderate bilateral renal parenchymal scar formation. -Oreilly catheter in situ and recommended to titrate urine output. -Avoid nephrotoxic medication and renally dose medication # History of myasthenia gravis status post thymectomy -Patient does not appear to be in myasthenic crisis as of now -Resumed his home medication pyridostigmine 60 Mg p.o. 6 hourly -Avoid macrolides, aminoglycosides and fluoroquinolones # Complicated UTI secondary to catheter related # Neurogenic bladder secondary to paraplegia # BPH -Patient had previous history of nephrolithiasis, UTI and JAEL -Patient presented with fever, tested positive for influenza A, urine analysis showed turbid urine with 1+ proteinuria, 141 WBC, 2+ urine bacteria -Patient is having Oreilly catheter since 2017 and last Oreilly change was 1 week before the hospitalization -Patient does have paraplegia and is not able to perceive sensations below the umbilicus and he does not endorse any burning micturition -Patient received a dose of ceftriaxone in the ED Plan -Urine cultures were sent, pending result -New Oreilly catheter was placed -Resumed tamsulosin -Started on cephalexin 500 Mg p.o. twice daily in view of complicated UTI as it is safe to give in myasthenia gravis -Will change antibiotic if needed based on urine cultures #History of CAD s/p PCI -Patient was using aspirin and atorvastatin as home medication -Resumed his home medications. # Chronic peripheral neuropathy -Patient is using gabapentin 800 Mg p.o. 3 times daily, duloxetine 30 Mg p.o. at bedtime and amitriptyline 50 Mg p.o. daily -Still complaining of severe tingling of bilateral lower extremities mainly around the foot -Resumed gabapentin 300 mg 3 times daily, will uptitrate if needed. -B12, folate normal -Resumed multivitamin # History of hypertension -Patient is using amlodipine 2.5 mg as home medication -Blood pressure at the time of admission is 117/68 mmHg -Resume his home medication # History of type 2 diabetes mellitus, not on treatment -Patient is not using any oral hypoglycemic drugs or insulin -A1c on 08/2023 is 5.5. -Monitor daily blood glucose Assessment and plan discussed with my attending physician Dr. Komal Smith (PGY-1)- Internal medicine resident Time Spent with Patient Time attestation: Total time spent providing and/or coordinating discharge services: Exam Vital Signs Temp Pulse Resp BP Pulse Ox O2 Del Method O2 Flow Rate 97.5 F 80 14 197/87 H 91 L Nasal Cannula 1 04/07/24 12:00 04/07/24 12:04/07/24 12:04/07/24 12:04/07/24 12:04/07/24 12:00 04/07/24 12:00 Discharge Plan Plan Patient Disposition: Xfer [facility]illed [facility] ([facility]) Patient condition on transfer: Stable Care Plan Goals: Patient is medically cleared for discharge Is recommended to follow-up with PCP in regards to recent hospitalization Patient will benefit from physical therapy/Occupational Therapy to better mobilize and improve strength. [facility]. Prescriptions/Referrals Prescriptions/Med Rec: Continued atorvastatin [Lipitor] 40 MG tablet 40 mg PO HS Qty: 0 folic acid 1 mg Tablet 1 mg PO QDAY pyridostigmine bromide 60 mg tablet 60 mg PO Q6H Glucagon Emergency Kit (human) 1 mg recon soln 1 mg subcut DAILY aspirin 81 mg Capsule 81 mg PO QDAY multivitamin Tablet 1 tab PO QDAY acetaminophen [Tylenol] 325 mg Tablet 325 mg PO Q8H PRN (Reason: breaktrhough pain) ondansetron HCl 4 mg Tablet 4 mg PO Q6H PRN (Reason: NAUSEA OR VOMITNG) thiamine HCl (vitamin B1) 100 mg Tablet 100 mg PO QDAY magnesium hydroxide [Milk of Magnesia] 400 mg/5 mL Suspension 30 ml PO QDAY PRN (Reason: Constipation) ascorbic acid (vitamin C) 500 mg Tablet 500 mg PO BID bisacodyl [Dulcolax (bisacodyl)] 10 mg Suppository 10 mg AZ Q72H PRN (Reason: Constipation) albuterol 90 mcg/actuation Aerosol 180 mcg INHALATION Q4H PRN (Reason: SOB) docusate sodium 250 mg Capsule 250 mg PO BID cholecalciferol (vitamin D3) [Vitamin D3] 25 mcg (1,000 unit) Tablet 50 mcg PO QDAY cranberry 450 mg Tablet 425 mg PO QDAY Rx Instructions: administer with a meal magnesium oxide 400 mg magnesium Tablet 400 mg PO HS oxycodone-acetaminophen 7.5-325 mg tablet 1 tab Q6H PRN (Reason: Severe Pain (Scale Score 7-10)) ropinirole 1 mg tablet 1 mg PO BID gabapentin 800 mg Tablet 800 mg PO TID cranberry 405 mg Capsule 425 mg oxycodone-acetaminophen 7.5-325 mg tablet 1 tab PO 4XD duloxetine 30 mg capsule,delayed release(DR/EC) 30 mg PO HS tizanidine 4 mg tablet 4 mg PO QID amlodipine 2.5 mg tablet 2.5 mg PO QDAY Rx Instructions: HOLD FOR SBP<100 OR DBP<50 tamsulosin 0.4 mg capsule 0.4 mg PO BID calcium acetate(phosphat bind) 667 mg capsule 667 mg PO TIDWM fenofibrate nanocrystallized 145 mg tablet 145 mg PO QDAY amitriptyline 50 mg tablet 50 mg PO QDAY polyethylene glycol 3350 [HealthyLax] 17 gram Powder In Packet 17 g PO BID 30 Days Qty: 100 6RF Discontinued oxycodone-acetaminophen [Percocet] 5-325 mg Tablet 1 tab PO Q6H PRN (Reason: Pain (Scale Score 7-10)) Referrals: Leonides Amanda MD [Primary Care Provider] - Patient/Caregiver Discharge Instructions Print Language: Mauritanian Stand Alone Forms: [employer] Award Info., Patient Portal Info Letter Discharge Order Discharge Orders: Discharge (Routine); Ordered 04/07/24 Ordered By: Andres Sauceda Quality Discharge Quality Measures VTE prophylaxis
== END 2024-04-07 15:19 | disposition skilled nursing facility (03) | DRG 698 ==
LOC: SERX 22:29 → SERHOLD 04-03 00:41 → S3NX 04-03 02:08
PROVIDERS: Registered Nurse General Practice; Student in an Organized Health Care Education/Training Program; Admitting Provider Internal Medicine; Emergency Provider Emergency Medicine; PCP Hospitalist; Visit Provider Internal Medicine
DX: T83.518A Infection and inflammatory reaction due to other urinary catheter, initial encounter (principal); J96.01 Acute respiratory failure with hypoxia; G82.20 Paraplegia, unspecified; N39.0 Urinary tract infection, site not specified; J10.1 Influenza due to other identified influenza virus with other respiratory manifestations; E78.5 Hyperlipidemia, unspecified; G70.00 Myasthenia gravis without (acute) exacerbation; N18.30 Chronic kidney disease, stage 3 unspecified; I12.9 Hypertensive chronic kidney disease with stage 1 through stage 4 chronic kidney disease, or unspecified chronic kidney disease; N40.0 Benign prostatic hyperplasia without lower urinary tract symptoms; N31.9 Neuromuscular dysfunction of bladder, unspecified; Z74.01 Bed confinement status; G89.29 Other chronic pain; F17.210 Nicotine dependence, cigarettes, uncomplicated; E66.9 Obesity, unspecified; Z68.35 Body mass index [BMI] 35.0-35.9, adult; Y84.6 Urinary catheterization as the cause of abnormal reaction of the patient, or of later complication, without mention of misadventure at the time of the procedure; I25.10 Atherosclerotic heart disease of native coronary artery without angina pectoris; Z98.61 Coronary angioplasty status; E11.22 Type 2 diabetes mellitus with diabetic chronic kidney disease; E86.0 Dehydration
CPT/HCPCS: 36415; 71045; 76770; 80048; 80053; 80061; 81001; 82607; 82746; 83036; 83605; 83735; 84145; 84439; 84443; 85025; 87081; 87400; 87811; 93225; 94640; 97161; 99285; A9270; J0696; J1643; J2405; J3490; J7030

== ENCOUNTER 2024-08-15 14:23 | Inpatient (IN) | payer MEDICARE, MEDICAID, SELFPAY ==
[2024-08-15] VITALS (14 sets, daily range): BP systolic 116–204; BP diastolic 69–95; PULSE 76–96; RESP 15–93; TEMP 36.9–39.2; O2SAT 88–99; BMI 31.7
--- NOTE | 2024-08-15 14:52 | PD.EDADULT ---
ED General RME/HPI General Chief complaint: Skin/Abscess/Foreign Body Stated complaint: SWELLING Time Seen by Provider: 08/15/24 14:26 Arrival date/time: 08/15/24 14:23 RME / HPI RME / HPI narrative: This patient is a 69-year-old male with past medical history of myasthenia gravis status post thymectomy, hypertension, BPH, type 2 diabetes, paraplegia status post 2 spinal surgeries, peripheral neuropathy, nephrolithiasis, possible colostomy, neurogenic bladder, history of CAD status post PCI, chronic pain presented from [facility] on 08/15/2024 with chief complaint of 3 days history of facial swelling and neck pain that has been progressively worsening. Patient reported that he started feeling pain in his neck with otalgia but denied any ringing in the ears. He does use ear buds due to excessive wax. Otoscopic examination showed normal tympanic membrane with wax inside both years. Patient's GCS is 15. He also reported that his Oreilly catheter was recently been replaced on August 13, 2024 at the facility. Patient was taking antibiotics for some infection at the facility. He endorsed chills, headache, dizziness, mild shortness of breath, upper extremity soreness as well. He reported to have chronic constipation and had passage of hard bowel movement yesterday. He denied any chest pain, abdominal discomfort, nausea vomiting or dysuria. He smokes 2 to 3 cigarettes every day. He denied getting flu or COVID-vaccine. of note, Patient was taking antibiotic for 2 weeks for similar presentation at the facility. Patient does have hx of ESBL UTI. PMH: Myasthenia gravis s/p thymectomy, hypertension, BPH, type 2 diabetes mellitus, paraplegia status post 2 spinal surgeries, peripheral neuropathy, nephrolithiasis, possible TIMUR, neurogenic bladder,history of CAD s/p PCI PSH: Myasthenia gravis s/p thymectomy, paraplegia status post 2 spinal surgeries, history of CAD s/p PCI SH: Smoked for 30 years, currently smoking 2 cigarette/day, denies alcohol and other illicit drug abuse. Allergies: None Home medications: Atorvastatin 40 mg at bedtime, folic acid 1 mg daily, Pyrodostigmine 60 mg Q6 hourly, aspirin 81 mg once a day, Tylenol 325 mg, Zofran 4 mg, thiamine 100 mg, magnesium hydroxide 400 mg, vitamin C 500 mg, bisacodyl 10 mg suppository, albuterol aerosol, docusate sodium 250, vitamin D3, cranberry, magnesium oxide 400 mg, oxycodone?acetaminophen 7.5/325, Lyrica 200 mg TID , cranberry, duloxetine 30 mg, tizanidine 4 mg, amlodipine 2.5 mg, tamsulosin 0.4 mg, calcium acetate 667 mg, fenofibrate 145 mg, amitriptyline 50 mg, polyethylene glycol Differentials include soft tissue neck infection/abscess, mastoiditis, community-acquired pneumonia Vitals showed elevated blood pressure 183/81, heart rate 96, respiratory rate 20 and fever spike of 102.5 Patient was saturating well on room air. Basic labs including CBC, CMP, magnesium, phosphorus, lactic acid, procalcitonin, VBG's, chest x-ray, CT head without contrast, CT soft tissue neck, EKG, troponin I, flu and COVID test were ordered. Patient was given Tylenol 650 mg x 1 with meclizine 25 mg x 1. 15:55 CBC showed hemoglobin 14.3, leukocytosis white count 11.5. Platelet count 204. ABGs were unremarkable. Urinalysis showed pH 7.0, specific gravity 1.021, trace proteins, blood 1+, positive nitrite, positive leukocyte esterase. Lactic acid 1.3. 16: 33 CMP showed sodium 142, potassium 4.4, CL 107, bicarb 27.1. Kidney functions showed mild JAEL with BUN 18 creatinine 1.2 baseline creatinine 1.1 from April 2024. Blood glucose 134. Lactic acid 1.3. Phosphorus 1.5, magnesium 1.6. Liver enzymes unremarkable. Troponin I was negative. Procalcitonin was negative. Head CT showed no acute changes. Venous Doppler of upper ext was added as pt c/o of upper ext pain and neck swelling 18: 00 patient was signed out to ED physician to follow-up with CT soft tissue neck to rule out abscess or soft tissue infection. Patient's ED course, lab results, imaging and treatment were discussed. MD complaint: Facial swelling and neck pain Onset (ago): day(s) (3) Location: face and neck Radiation: non-radiation Severity: mild Severity scale (1-10): 5 Quality: aching Consistency: constant Relieving factors: none Associated symptoms: fever/chills, headaches, shortness of breath and other (Upper extremity pain) Related Data Home Medications ?Medication ?Instructions ?Recorded ?Confirmed atorvastatin 40 mg tablet (Lipitor) 40 mg PO HS #0 tabs 02/21/17 04/03/24 folic acid 1 mg tablet 1 mg PO QDAY 07/08/17 04/03/24 pyridostigmine bromide 60 mg tablet 60 mg PO Q6H 08/24/18 04/03/24 amlodipine 2.5 mg tablet 2.5 mg PO QDAY 11/03/22 04/03/24 calcium acetate(phosphat bind) 667 667 mg PO TIDWM 11/03/22 04/03/24 mg capsule duloxetine 30 mg capsule,delayed 30 mg PO HS 11/03/22 04/03/24 release fenofibrate nanocrystallized 145 145 mg PO QDAY 11/03/22 04/03/24 mg tablet tamsulosin 0.4 mg capsule 0.4 mg PO BID 11/03/22 04/03/24 tizanidine 4 mg tablet 4 mg PO QID 11/03/22 04/03/24 acetaminophen 325 mg tablet 325 mg PO Q8H PRN breaktrhough pain 04/03/23 04/03/24 (Tylenol) albuterol 90 mcg/actuation aerosol 180 mcg inhalation Q4H PRN SOB 04/03/23 04/03/24 inhaler ascorbic acid (vitamin C) 500 mg 500 mg PO BID 04/03/23 04/03/24 tablet aspirin 81 mg capsule 81 mg PO QDAY 04/03/23 04/03/24 bisacodyl 10 mg rectal suppository 10 mg CA Q72H PRN Constipation 04/03/23 04/03/24 (Dulcolax (bisacodyl)) cholecalciferol (vitamin D3) 25 50 mcg PO QDAY 04/03/23 04/03/24 mcg (1,000 unit) tablet (Vitamin D3) cranberry fruit 450 mg tablet 425 mg PO QDAY 04/03/23 04/03/24 (cranberry) docusate sodium 250 mg capsule 250 mg PO BID 04/03/23 04/03/24 glucagon 1 mg solution for 1 mg subcut DAILY 04/03/23 04/03/24 injection (Glucagon Emergency Kit) magnesium hydroxide 400 mg/5 mL 30 ml PO QDAY PRN Constipation 04/03/23 04/03/24 oral suspension (Milk of Magnesia) magnesium oxide 400 mg PO HS 04/03/23 04/03/24 multivitamin 1 tab PO QDAY 04/03/23 04/03/24 ondansetron HCl 4 mg tablet 4 mg PO Q6H PRN NAUSEA OR VOMITNG 04/03/23 04/03/24 thiamine HCl (vitamin B1) 100 mg 100 mg PO QDAY 04/03/23 04/03/24 tablet oxycodone-acetaminophen 7.5 mg-325 1 tab Q6H PRN Severe Pain (Scale 06/14/23 04/03/24 mg tablet Score 7-10) amitriptyline 50 mg tablet 50 mg PO QDAY 08/07/23 04/03/24 cranberry extract 405 mg capsule 425 mg 04/03/24 gabapentin 800 mg tablet 800 mg PO TID 04/03/24 04/03/24 oxycodone-acetaminophen 7.5 mg-325 1 tab PO 4XD 04/03/24 04/03/24 mg tablet ropinirole 1 mg tablet 1 mg PO BID 04/03/24 04/03/24 Previous Rx's ?Medication ?Instructions ?Recorded polyethylene glycol 3350 17 gram 17 g PO BID 30 days #100 ea 08/09/23 oral powder packet (HealthyLax) Allergies Allergy/AdvReac Type Severity Reaction Status Date / Time No Known Allergies Allergy Verified 07/28/23 09:33 Review of Systems Review of Systems Systems Reviewed: All systems reviewed, normal except as documented Past Medical History Past Medical History NEUROLOGIC: Positive Neurological Disorders, Paralysis and Peripheral Neuropathy; Negative Seizures CARDIAC: Positive Cardiac Disorders, Myocardial Infarction, Coronary Artery Disease, Atherosclerotic Heart Disease, Peripheral Vascular Disease, Hypercholesterolemia, Cellulitis and Hypertension; Negative Congestive Heart Failure RESPIRATORY: Positive Sleep Apnea and Tobacco Use; Negative Chronic Obstructive Pulmonary Disease (COPD) or Asthma GASTROINTESTINAL: Positive Gastrointestinal Disorders and Obesity GENITOURINARY: Positive Genitourinary Disorders and Neurogenic Bladder; Negative Renal Disease REPRODUCTIVE: Negative Breast Cancer MUSCULOSKELETAL: Positive Musculoskeletal Disorders, Myasthenia Gravis, Fibromyalgia and Fractures ENDOCRINE: Positive Endocrine Disorders and Diabetes Mellitus Type 2; Negative Diabetes Mellitus Type 1 HEMATOLOGIC: Positive Blood Disorders and Anemia; Negative Sickle Cell Disease PSYCHO/SOCIAL: Positive Depression and Anxiety OTHER HISTORY: Positive Hospitalization, Autoimmune Disease and Falls; Negative Blood Transfusions, Blood Transfusion Reaction, Anesthesia Reactions, MRSA, Clostridium Difficile or Breast Cancer Family History FAMILY HISTORY: Positive Family Respiratory Disorders and Family Cardiac Disorders; Negative Family Gastrointestinal Problems Surgical History SURGICAL: Positive Coronary Artery Bypass Graft, Coronary Stent, Endocrine Surgery and Thyroidectomy; Negative Ear Surgery, Abdominal Surgery, Nephrectomy, Neurologic Surgery, Mastectomy or Vasectomy Social History SMOKING STATUS: Never smoker SECOND HAND EXPOSURE: Yes SUBSTANCE USE: does not use ED Exam Narrative Physical exam: GENERAL APPEARANCE: AxOx4, obeese male in mild distress due to neck pain HEENT: NC, AT. MMM. EOMI, clear conjunctiva, oropharynx clear. Facial swelling with redness over left cheek. Missing teeth. otoscope exam showed wax inside ears no pus. Tympanic membrane appears normal NECK: Supple without lymphadenopathy. No stiffness or restricted ROM. Rt submental lymph node palpable HEART: sinus tacy with regular rhythm, normal S1/S2, no m/r/g LUNGS: CTAB, moving air well. No crackles or wheezes are heard. ABDOMEN: Soft, nontender, nondistended with good bowel sounds heard. BACK: No CVAT, no obvious deformity. EXTREMITIES: muscle wasting of LE, trace edema. NEUROLOGICAL: Grossly nonfocal. Alert and orientedx3 . Power in LE 0/5 .CN not formally tested but appear grossly intact. : chronic indwelling cathetar Skin: Warm and dry without any rash. Psych: appropriate mood and affect Course Course Course Narrative: This patient is a 69-year-old male with past medical history of myasthenia gravis status post thymectomy, hypertension, BPH, type 2 diabetes, paraplegia status post 2 spinal surgeries, peripheral neuropathy, nephrolithiasis, possible colostomy, neurogenic bladder, history of CAD status post PCI, chronic pain presented from [facility] rehab on 08/15/2024 with chief complaint of 3 days history of facial swelling and neck pain that has been progressively worsening. Patient reported that he started feeling pain in his neck with otalgia but denied any ringing in the ears. He does use ear buds due to excessive wax. Otoscopic examination showed normal tympanic membrane with wax inside both years. Patient's GCS is 15. He also reported that his Oreilly catheter was recently been replaced on August 13, 2024 at the facility. Patient was taking antibiotics for some infection at the facility. He endorsed chills, headache, dizziness, mild shortness of breath, upper extremity soreness as well. He reported to have chronic constipation and had passage of hard bowel movement yesterday. He denied any chest pain, abdominal discomfort, nausea vomiting or dysuria. He smokes 2 to 3 cigarettes every day. He denied getting flu or COVID-vaccine. of note, Patient was taking antibiotic for 2 weeks for similar presentation at the facility. Vitals showed elevated blood pressure 183/81, heart rate 96, respiratory rate 20 and fever spike of 102.5 Patient was saturating well on room air. Basic labs including CBC, CMP, magnesium, phosphorus, lactic acid, procalcitonin, VBG's, chest x-ray, CT head without contrast, CT soft tissue neck, EKG, troponin I, flu and COVID test were ordered. Patient was given Tylenol 650 mg x 1 with meclizine 25 mg x 1. 15:55 CBC showed hemoglobin 14.3, leukocytosis white count 11.5. Platelet count 204. ABGs were unremarkable. Urinalysis showed pH 7.0, specific gravity 1.021, trace proteins, blood 1+, positive nitrite, positive leukocyte esterase. Lactic acid 1.3. 16: 33 CMP showed sodium 142, potassium 4.4, CL 107, bicarb 27.1. Kidney functions showed mild JAEL with BUN 18 creatinine 1.2 baseline creatinine 1.1 from April 2024. Blood glucose 134. Lactic acid 1.3. Phosphorus 1.5, magnesium 1.6. Liver enzymes unremarkable. Troponin I was negative. Procalcitonin was negative. Head CT showed no acute changes. Venous Doppler of upper ext was added as pt c/o of upper ext pain and neck swelling 18: 00 patient was signed out to ED physician to follow-up with CT soft tissue neck to rule out abscess or soft tissue infection. Patient's ED course, lab results, imaging and treatment were discussed. Quality Measures none Orders Category Date Time Status Bedside Blood Glucose NOW Care 08/15/24 15:05 Active Bedside COVID-19 Antigen Test NOW Care 08/15/24 15:04 Active Bedside Influenza A&B Antigen Test NOW Care 08/15/24 15:[address] Screening NOW Care 08/15/24 15:[address] Screening NOW Care 08/15/24 17:53 Active Extension Supervisor Q4H START 00 Care 08/15/24 15:05 Active EKG (ED ONLY) *Do not use* NOW Care 08/15/24 15:07 Completed Insert IV NOW Care 08/15/24 15:05 Active Strict Intake and Output Routine Care 08/15/24 15:[address] chest abdomen pelvis w Stat Exams 08/15/24 17:[address] head/brain wo con Stat Exams 08/15/24 15:[address] soft tissue neck chest w Stat Exams 08/15/24 15:04 Ordered CXR2 [XR chest 2V] Stat Exams 08/15/24 15:29 Ordered EKG (ED Only) Stat Exams 08/15/24 15:04 Draft US venous doppler UE BI Stat Exams 08/15/24 16:59 Ordered XR chest 1V SEPSIS PROTOCOL Stat Exams 08/15/24 15:05 Completed Blood Culture (Lab) Stat Lab 08/15/24 15:33 Received CBC Stat Lab 08/15/24 15:30 Completed Comprehensive Metabolic Panel Stat Lab 08/15/24 15:30 Completed Lactate (Lactic Acid) Stat Lab 08/15/24 15:30 Completed Mag [Magnesium] Stat Lab 08/15/24 15:30 Completed Partial Thromboplastin Time Stat Lab 08/15/24 15:30 Completed Phosphorous Stat Lab 08/15/24 15:30 Completed Procalcitonin Stat Lab 08/15/24 15:30 Completed Prothrombin Time with INR Stat Lab 08/15/24 15:30 Completed Strep A Rapid Stat Lab 08/15/24 15:08 Ordered TSH [Thyroid Stimulating Hormone] Routine Lab 08/15/24 17:43 Ordered Troponin I Stat Lab 08/15/24 15:30 Completed Urinalysis Stat Lab 08/15/24 15:15 Completed Urine Culture Stat Lab 08/15/24 15:15 Received Venous Blood Gas Stat Lab 08/15/24 15:30 Completed Acetaminophen Tab [Tylenol Tab] Med 08/15/24 15:04 Discontinued 650 mg PO X1 ONE Meclizine HCl [Antivert] Med 08/15/24 15:09 Discontinued 25 mg PO X1 ONE Naph,Kph Mbdb [Neutra-Phos Pkt] Med 08/15/24 16:31 Discontinued 1 packet PO X1 ONE Piper/Tazo 3.375 gm Premix [Zosyn] Med 08/15/24 15:33 Discontinued 3.375 gm in 50 ml IV X1 Oxygen Delivery NOW RT 08/15/24 15:05 Active Vital Signs Vital signs: Vital Signs Temperature 102.5 F H 08/15/24 14:27 Pulse Rate 96 08/15/24 14:27 Respiratory Rate 20 08/15/24 14:27 Blood Pressure 183/81 H 08/15/24 14:27 Pulse Oximetry (%) 91 L 08/15/24 14:27 Oxygen Delivery Method Room Air 08/15/24 14:27 Discharge Plan Prescriptions/Referrals Prescriptions/Med Rec: No Action atorvastatin [Lipitor] 40 MG tablet 40 mg PO HS Qty: 0 folic acid 1 mg Tablet 1 mg PO QDAY pyridostigmine bromide 60 mg tablet 60 mg PO Q6H Glucagon Emergency Kit (human) 1 mg recon soln 1 mg subcut DAILY aspirin 81 mg Capsule 81 mg PO QDAY multivitamin Tablet 1 tab PO QDAY acetaminophen [Tylenol] 325 mg Tablet 325 mg PO Q8H PRN (Reason: breaktrhough pain) ondansetron HCl 4 mg Tablet 4 mg PO Q6H PRN (Reason: NAUSEA OR VOMITNG) thiamine HCl (vitamin B1) 100 mg Tablet 100 mg PO QDAY magnesium hydroxide [Milk of Magnesia] 400 mg/5 mL Suspension 30 ml PO QDAY PRN (Reason: Constipation) ascorbic acid (vitamin C) 500 mg Tablet 500 mg PO BID bisacodyl [Dulcolax (bisacodyl)] 10 mg Suppository 10 mg CA Q72H PRN (Reason: Constipation) albuterol 90 mcg/actuation Aerosol 180 mcg INHALATION Q4H PRN (Reason: SOB) docusate sodium 250 mg Capsule 250 mg PO BID cholecalciferol (vitamin D3) [Vitamin D3] 25 mcg (1,000 unit) Tablet 50 mcg PO QDAY cranberry 450 mg Tablet 425 mg PO QDAY Rx Instructions: administer with a meal magnesium oxide 400 mg magnesium Tablet 400 mg PO HS oxycodone-acetaminophen 7.5-325 mg tablet 1 tab Q6H PRN (Reason: Severe Pain (Scale Score 7-10)) ropinirole 1 mg tablet 1 mg PO BID gabapentin 800 mg Tablet 800 mg PO TID cranberry extract 405 mg Capsule 425 mg oxycodone-acetaminophen 7.5-325 mg tablet 1 tab PO 4XD duloxetine 30 mg capsule,delayed release(DR/EC) 30 mg PO HS tizanidine 4 mg tablet 4 mg PO QID amlodipine 2.5 mg tablet 2.5 mg PO QDAY Rx Instructions: HOLD FOR SBP<100 OR DBP<50 tamsulosin 0.4 mg capsule 0.4 mg PO BID calcium acetate(phosphat bind) 667 mg capsule 667 mg PO TIDWM fenofibrate nanocrystallized 145 mg tablet 145 mg PO QDAY amitriptyline 50 mg tablet 50 mg PO QDAY polyethylene glycol 3350 [HealthyLax] 17 gram Powder In Packet 17 g PO BID 30 Days Qty: 100 6RF Problem List Clinical Impression: Fever, Facial swelling, Acute neck pain, Acute otalgia Patient/Caregiver Discharge Instructions Print Language: [place] Citizen MDM Narrative MDM hospital course (for use when minimal MDM required): This patient is a 69-year-old male with past medical history of myasthenia gravis status post thymectomy, hypertension, BPH, type 2 diabetes, paraplegia status post 2 spinal surgeries, peripheral neuropathy, nephrolithiasis, possible colostomy, neurogenic bladder, history of CAD status post PCI, chronic pain presented from [facility] rehab on 08/15/2024 with chief complaint of 3 days history of facial swelling and neck pain that has been progressively worsening. Patient reported that he started feeling pain in his neck with otalgia but denied any ringing in the ears. He does use ear buds due to excessive wax. Otoscopic examination showed normal tympanic membrane with wax inside both years. Patient's GCS is 15. He also reported that his Oreilly catheter was recently been replaced on August 13, 2024 at the facility. Patient was taking antibiotics for some infection at the facility. He endorsed chills, headache, dizziness, mild shortness of breath, upper extremity soreness as well. He reported to have chronic constipation and had passage of hard bowel movement yesterday. He denied any chest pain, abdominal discomfort, nausea vomiting or dysuria. He smokes 2 to 3 cigarettes every day. He denied getting flu or COVID-vaccine. of note, Patient was taking antibiotic for 2 weeks for similar presentation at the facility. Vitals showed elevated blood pressure 183/81, heart rate 96, respiratory rate 20 and fever spike of 102.5 Patient was saturating well on room air. Basic labs including CBC, CMP, magnesium, phosphorus, lactic acid, procalcitonin, VBG's, chest x-ray, CT head without contrast, CT soft tissue neck, EKG, troponin I, flu and COVID test were ordered. Patient was given Tylenol 650 mg x 1 with meclizine 25 mg x 1. 15:55 CBC showed hemoglobin 14.3, leukocytosis white count 11.5. Platelet count 204. ABGs were unremarkable. Urinalysis showed pH 7.0, specific gravity 1.021, trace proteins, blood 1+, positive nitrite, positive leukocyte esterase. Lactic acid 1.3. 16: 33 CMP showed sodium 142, potassium 4.4, CL 107, bicarb 27.1. Kidney functions showed mild JAEL with BUN 18 creatinine 1.2 baseline creatinine 1.1 from April 2024. Blood glucose 134. Lactic acid 1.3. Phosphorus 1.5, magnesium 1.6. Liver enzymes unremarkable. Troponin I was negative. Procalcitonin was negative. Head CT showed no acute changes. Venous Doppler of upper ext was added as pt c/o of upper ext pain and neck swelling 18: 00 patient was signed out to ED physician to follow-up with CT soft tissue neck to rule out abscess or soft tissue infection. Patient's ED course, lab results, imaging and treatment were discussed. EKG Interpretation EKG #1: EKG Interpretation: EKG showed sinus rhythm. QTc 423 Medication Administration(s) Medication Administration History Discontinued Medications Acetaminophen (Acetaminophen 325 Mg Tablet) 650 mg PO X1 ONE Stop: 08/15/24 15:05 Last Admin: 08/15/24 15:27 Dose: 650 mg Documented By: MIGUEL A Piperacillin/Tazobactam/Dextrose (Zosyn) 3.375 gm in 50 mls @ 100 mls/hr IV X1 ONE Stop: 08/15/24 16:02 Last Infusion: 08/15/24 17:01 Dose: Infused Documented By: Admin: 08/15/24 16:30 Dose: 100 mls/hr Documented By: DB Meclizine HCl (Meclizine Hcl 25 Mg Tablet) 25 mg PO X1 ONE Stop: 08/15/24 15:10 Last Admin: 08/15/24 15:27 Dose: 25 mg Documented By: MIGUEL A Potassium Phos/Sodium Phos (Naph,[facility] Mbdb 1 Packet (1.5 Gm)) 1 packet PO X1 ONE Stop: 08/15/24 16:32 Diagnosis Differential Diagnosis ED Complaint MDM: soft tissue neck infection/abscess, mastoiditis, community-acquired pneumo
--- NOTE | 2024-08-15 15:04 | XR_ITS ---
Examination: CT soft tissue neck, with intravenous contrast. 2-D coronal reconstructions. 2-D sagittal reconstructions. Date and time of exam :August 15, 2024 at 1807 hours INDICATIONS: Neck and face swelling today. CTDI: vol (mGy):12.6 DLP: (mGycm):328 Technique: 1.25 mm axial sections of the neck of the obtained. Coronal and sagittal reconstructions have been obtained. Intravenous contrast administered 60 cc Isovue-370. Low dose protocols were performed. One or more of the following dose reduction techniques were used; automated exposure control, adjustment of the mA and/or KV according to patient size, use of iterative reconstruction technique. Findings: Soft tissue swelling anterior to the left optic globe Skin thickening left face including on the left side external to the mandible and maxilla No soft tissue abscess No cortical bone destruction involving the maxilla or mandible The larynx appears normal No thyroid nodules Normal epiglottis IMPRESSION: Facial cellulitis pattern, soft tissue swelling anterior to the left optic globe and skin thickening left face, no soft tissue abscess No pathologic lymphadenopathy
--- NOTE | 2024-08-15 15:04 | XR_ITS ---
Examination: CT brain head without contrast. 2-D sagittal coronal reconstructions Date and time of exam:August 15, 2024 1838 hours INDICATIONS: Left-sided facial swelling today COMPARISON: August 07, 2023 CTDI: vol (mGy):57.5 DLP: (mGycm):1221 Technique: Multiple CT axial sections of the brain have been obtained, 5 mm slice thickness. Contrast has not been administered. 2-D sagittal, coronal reconstructions have been obtained Low dose protocols were performed. One or more of the following dose reduction techniques were used; automated exposure control, adjustment of the mA and/or KV according to patient size, use of iterative reconstruction technique. Findings: No significant ventricular enlargement. Intra-axial or extra-axial hemorrhage density is not seen. No mass effect or midline shift Basal cisterns are not remarkable. Fourth ventricle is midline. Cranial vault intact. Impression: Negative for acute hemorrhage, mass effect or midline shift Advise clinical correlation follow-up accordingly
--- NOTE | 2024-08-15 15:04 | EKG_ITS ---
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
--- NOTE | 2024-08-15 15:05 | XR_ITS ---
Examination: AP chest single view TECHNIQUE: AP sitting portable chest single view Date and time: August 15, 2024 1514 hours Comparison April 02, 2024 INDICATIONS: Sepsis alert FINDINGS: Poor definition left cardiac contour Mild prominence left ventricle Right lung clear IMPRESSION: Recommend lateral chest view follow-up to exclude pneumonia in the lingular segment
--- NOTE | 2024-08-15 15:08 | PC.NURSE ---
Pt comes in from [facility] due to facial swelling That has been happening for about 4 weeks states he was on antibiotics 3 weeks ago for this problem and the swelling at that time improved. However, the welling has returned again. Redness and swelling to the left upper cheek, around the left eye, radiates to back of face on left side and slightly down the left posterior part of the neck. Pt states that there has been nothing attempted to control the pain, and that doctor at [facility] had done blood work but that it came back negative.
[2024-08-15] MEDS: MECLIZINE HCL 25 MG TABLET PO (15:27)
[2024-08-15] MEDS: ACETAMINOPHEN 325 MG TABLET 650 MG PO (15:27)
--- NOTE | 2024-08-15 15:29 | XR_ITS ---
Examination: AP chest single view TECHNIQUE: AP portable upright chest single view Date and time: Aug 15 2024, 1950 hours, comparison August 15, 2024, 4 hours INDICATIONS: Sepsis alert FINDINGS: No pneumonia is confirmed in the lingular segment on the lateral view. However, there is pneumonia obscuring detail posterior portion left hemidiaphragm on the lateral view IMPRESSION: Follow-up films confirm pneumonia posterior basal segment left lower lobe
[2024-08-15 15:35] LABS: Collection Type, Urine Clean Catch; Squamous Epithelial Cell,Urine 0 /hpf (0-5); WBC,Urine 0 /hpf (0-5)
[2024-08-15 15:43] LABS: Base Excess, Venous 3 (-3-3); O2 Saturation, Venous 83 % (96-97); PCO2, Venous 43 mmHg (36-56); PO2, Venous 44 mmHg (15-58); pH, Venous 7.41 (7.33-7.66)
[2024-08-15 15:44] LABS: Lactate (Lactic Acid) 1.3 mMol/L (0.4-2.0)
[2024-08-15 15:44] LABS: Bilirubin,Urine Negative (Negative); Blood,Urine 1+ (Negative); Clarity,Urine Clear (Clear/Hazy); Color,Urine Yellow (Lt Yel-Yel); Glucose, Urine Negative (Negative); Ketones,Urine Negative (Negative); Leukocyte Esterase,Urine Positive (Negative); Nitrite,Urine Positive (Negative); Protein,Urine Trace (Neg - Trace); RBC,Urine < 1 /hpf (0-3); Specific Gravity,Urine 1.021 (1.001-1.035)
[2024-08-15 15:46] LABS: Basophils % (Auto) 0 % (0-2.5); Eosinophils # (Auto) 0.1 Thou/mm3 (0.0-0.5); Eosinophils % (Auto) 1 % (0-10); Hematocrit 44.6 % (41.0-53.0); Hemoglobin 14.3 g/dL (13.5-16.0); Immature Granulocytes % (Auto) 0 % (0-0); Immature Granulocytes Auto 0.04 Thou/mm3 (0.00-0.00); Lymphocytes # (Auto) 0.8 Thou/mm3 (1.0-4.8); Lymphocytes % (Auto) 7 % (10-50); Mean Corpuscular HGB Conc 32.1 g/dl (31.0-37.0); Mean Corpuscular Hemoglobin 25.4 pg (25.0-35.0); Mean Corpuscular Volume 79 fL (80-100); Monocytes # (Auto) 0.8 Thou/mm3 (0.0-0.8); Monocytes % (Auto) 7 % (0-12); Neutrophils # (Auto) 9.8 Thou/mm3 (1.8-7.7); Neutrophils % (Auto) 85 % (37-80); Nucleated Red Blood Cell % 0 /100 WBC (0); Platelet Count 204 Thou/mm3 (140-440); RDW Standard Deviation 44.6 fL (35.1-43.9); Red Blood Count 5.64 Miln/mm3 (4.50-5.90); White Blood Count 11.5 Thou/mm3 (3.8-10.6)
[2024-08-15 15:59] LABS: Partial Thromboplastin Time 27.9 Seconds (22.0-36.0); Prothrombin Time 11.2 Seconds (9.0-12.2)
[2024-08-15 16:10] LABS: Alanine Aminotransferase 16 U/L (10-49); Albumin, Serum 4.2 gm/dL (3.4-4.8); Albumin/Globulin Ratio 1.6 (1.2-2.2); Alkaline Phosphatase 85 U/L (46-116); Anion Gap 8 (7-16); Aspartate Amino Transferase 21 U/L (0-34); BUN/Creatinine Ratio 15 Ratio (12-20); Bilirubin,Total 0.3 mg/dL (0.3-1.2); Blood Urea Nitrogen 18 mg/dL (9-23); Calcium 8.9 mg/dL (8.3-10.6); Calcium (Corrected) 8.9 mg/dL (8.5-10.1); Carbon Dioxide 27.1 mMol/L (20.0-31.0); Chloride 107 mMol/L (98-107); Creatinine (Component) 1.2 mg/dL (0.6-1.3); Estimated Creatinine Clearance 58.4 mL/min (>60); Globulin 2.6 gm/dL (2.3-3.5); Glucose 134 mg/dL (74-106); Magnesium 1.6 mg/dL (1.6-2.6); Osmolality,Calculated 287 (275-295); Phosphorous 1.5 mg/dL (2.4-5.1); Potassium 4.4 mMol/L (3.4-5.1); Procalcitonin 0.16 ng/ml (0.0-0.49); Sodium 142 mMol/L (136-145); Total Protein 6.8 gm/dL (5.7-8.2); Troponin I < 0.020 ng/mL (0.0-0.045); eGFR > 60 See Note
[2024-08-15] MEDS: PIPER/TAZO 3.375 GM PREMIX 3.375 GM/50 ML BAG IV (16:30)
--- NOTE | 2024-08-15 16:59 | XR_ITS ---
Examination: Venous duplex upper extremity sonogram, bilateral. Date and time of exam: August 15, 2024, 1720 hours INDICATIONS: Bilateral arm neck and face swelling today worse on the right side Technique: Multiple sonographic images of the deep venous system have been obtained. B-mode/2-D grayscale imaging of vascular structures and Doppler spectral analysis (waveforms) and color performed Both legs are examined. Findings: Deep venous systems do not demonstrate abnormal echogenicity. All visualized deep veins exhibit compressibility. All visualized deep veins exhibit augmentation. Impression: Negative for deep vein thrombosis
--- NOTE | 2024-08-15 17:52 | XR_ITS ---
Examination: CT chest with intravenous contrast CT abdomen with intravenous contrast CT pelvis with intravenous contrast 2-D coronal and sagittal reconstructions Time of exam: August 15, 2024, 1807 hours INDICATIONS: Fever, clinical diagnosis infection unknown source CTDI: vol (mGy) : 24 DLP: (mGycm): 1982 Technique: Multiple axial images of the chest, abdomen and pelvis with intravenous contrast, 3.0 mm slice thickness. Images obtained post intravenous injection Isovue 370 60 cc. 2-D sagittal and coronal reconstructions. Low dose protocols were performed. One or more of the following dose reduction techniques were used; automated exposure control, adjustment of the mA and/or KV according to patient size, use of iterative reconstruction technique. Findings: No thoracic aortic aneurysm dilatation No pulmonary artery filling defects No paratracheal tracheobronchial or bronchopulmonary adenopathy No lobar pneumonia or pulmonary edema Diffuse fatty infiltration throughout the liver No gallstones Spleen not enlarged Common bile duct is enlarged 12 mm No pancreatic mass Bilateral renal calculi, the largest in the right kidney 6 mm, no hydronephrosis or ureteral calculi Abdominal aortic calcification no aneurysmal dilatation. Normal appendix No diverticulitis Marked thickening of the urinary bladder wall with urinary Oreilly catheter present Abundant stool in the rectum IMPRESSION: No pneumonia or pulmonary edema. Extrahepatic biliary tract dilatation, recommend hepatobiliary sonography follow-up Multiple bilateral renal calculi, no hydronephrosis or ureteral calculi Normal appendix Thickening of the urinary bladder wall, differential would include cystitis
--- NOTE | 2024-08-15 18:07 | PD.EDADDENDU ---
Emergency Room Addendum <Daphne Vela - Last Filed: 08/15/24 19:08> Addendum Narrative: I took over the care from Dr. Lopez, attending Dr. Almonte at 6 PM on 08/15/2024, see her notes for complete H&P and ED course. I reviewed all diagnostic test results. My interpretation of the EKG is sinus rhythm with no acute ST-T changes. My interpretation of the chest x-ray is infiltrates. My review of the US venous doppler of the bilateral extremities is unremarkable. My review of the CT head report is unremarkable. Blood tests and urine tests At this point, diagnoses include Treatment here included No significant improvement. I discussed the case with our hospitalist. About the presentation and exam and diagnostics and treatments here. And need of further care in the hospital. Will accept the patient. J Luis Khan MD. <J Luis Khan MD - Last Filed: 08/15/24 22:50> Addendum Narrative: I took over the care from resident Dr. Lopez and attending Dr. Almonte at 6 PM on 08/15/2024, see previous notes for complete H&P and ED course. I reviewed all diagnostic test results. At this point, diagnoses include facial cellulitis and preseptal cellulitis with fever. Treatment here included IV fluid and Zosyn. No significant improvement. I discussed the case with our hospitalist. About the presentation and exam and diagnostics and treatments here. And need of further care in the hospital. Will accept the patient. J Luis Khan MD.
[2024-08-15 18:35] LABS: Thyroid Stimulating Hormone 0.63 uIU/mL (0.55-4.78)
[2024-08-15] MEDS: SODIUM CHLORIDE 0.9% 1000 ML 1,000 ML 999 ML IV (18:36)
[2024-08-15] MEDS: NAPH,KPH MBDB 1 PACKET (1.5 GM) PO (18:36)
[2024-08-15 18:50] LABS: Sed Rate (ESR) 64 mm/hr (0-20)
[2024-08-15 18:52] LABS: C-Reactive Protein 6.2 mg/dL (0.0-0.9)
--- NOTE | 2024-08-15 19:33 | XR_ITS ---
Examination: Abdomen sonogram, complete Date and time of exam: August 15, 2024, 2016 hours INDICATIONS: Right upper abdominal tenderness beginning 2 days ago, enlarged common bile duct on CT abdomen study today Technique: Multiple real-time grayscale transabdominal sonographic images of the abdomen have been obtained. Findings: Normal gallbladder Common bile duct is enlarged 8 mm Pancreas is obscured by bowel gas Mid aorta visualized not enlarged Hepatomegaly 19.7 cm no focal liver lesions Normal hepatopedal portal venous flow. Patent IVC Right kidney 10.5 cm renal cortex 1.7 cm 3.8 cm cyst Left kidney 9.8 cm cortex 1.6 cm Mild renal parenchymal scar formation Suspicious for bilateral renal calculi No hydronephrosis Spleen 11.1 cm IMPRESSION: Abnormally enlarged common bile duct, recommend MRCP follow-up to exclude common bile duct stones and/or stricture
--- NOTE | 2024-08-15 21:34 | PD.RESHP ---
Documentation for date of: 08/15/24 [facility] History of Present Illness Chief complaint: face is swelling History of present illness: Ramses Cross is 69 yr male with PMH of myasthenia gravis status post thymectomy, hypertension, BPH, type 2 diabetes, paraplegia status post 2 spinal surgeries, peripheral neuropathy, nephrolithiasis, possible colostomy, neurogenic bladder, history of CAD status post PCI, chronic pain presenting to ED from [facility] rehab due to facial swelling and neck swelling that started few weeks back. Patient stated that he had gone to see PCP 3 weeks ago and was started on antibiotics for orbital cellulitis. There was mild improvement after a 10-day course. However after completing course symptoms worsened again. Left eye is swollen shut with difficulty opening, no loss of vision past few days, endorses mild discharge from left eye, pain 6 out of 10. Did not use any topical agents. Also endorses minor headaches since start of the cellulitis. Patient feels that the pain extended from face down to the neck. He also reported that his Oreilly catheter was recently been replaced on August 13, 2024 at the facility. He denied any chest pain, abdominal discomfort, nausea vomiting or dysuria. Of note, patient does have history of ESBL UTI. In ED, initial vitals showed elevated blood pressure 183/81, heart rate 96, respiratory rate 20 and fever spike of 102.5 Patient was saturating well on room air. CBC showed mild leukocytosis 11.5, Urinalysis showed pH 7.0, specific gravity 1.021, trace proteins, blood 1+, positive nitrite, positive leukocyte esterase. Lactic acid 1.3. Phosphorus 1.5, magnesium 1.6. Liver enzymes unremarkable. Troponin I was negative. Procalcitonin was negative. Head CT showed no acute changes. Venous Doppler of upper ext was added as pt c/o of upper ext pain and neck swelling. CT soft tissue neck showed facial cellulitis, no abscesses. While in ED, patient received acetaminophen 650 mg, meclizine 25 mg, Zosyn x 1, Neutra-Phos, 1 L bolus NS. Patient to be admitted for IV antibiotics in setting of Facial cellulitis. PMH: Myasthenia gravis s/p thymectomy, hypertension, BPH, type 2 diabetes mellitus, paraplegia status post 2 spinal surgeries, peripheral neuropathy, nephrolithiasis, possible TIMUR, neurogenic bladder,history of CAD s/p PCI PSH: Myasthenia gravis s/p thymectomy, paraplegia status post 2 spinal surgeries, history of CAD s/p PCI SH: Smoked for 30 years, currently smoking 2 cigarette/day, denies alcohol and other illicit drug abuse. Allergies: None Home medications: Atorvastatin 40 mg at bedtime, folic acid 1 mg daily, Pyrodostigmine 60 mg Q6 hourly, aspirin 81 mg once a day, Tylenol 325 mg, Zofran 4 mg, thiamine 100 mg, magnesium hydroxide 400 mg, vitamin C 500 mg, bisacodyl 10 mg suppository, albuterol aerosol, docusate sodium 250, vitamin D3, cranberry, magnesium oxide 400 mg, oxycodone?acetaminophen 7.5/325, Lyrica 200 mg TID , cranberry, duloxetine 30 mg, tizanidine 4 mg, amlodipine 2.5 mg, tamsulosin 0.4 mg, calcium acetate 667 mg, fenofibrate 145 mg, amitriptyline 50 mg, polyethylene glycol Review of Systems Review of Systems Systems Reviewed: All systems reviewed, normal except as documented Exam Vital Signs Temp Pulse Resp BP Pulse Ox O2 Del Method O2 Flow Rate 98.5 F 86 17 196/80 H 98 Nasal Cannula 1 08/15/24 16:30 08/15/24 21:10 08/15/24 21:10 08/15/24 21:06 08/15/24 21:10 08/15/24 21:06 08/15/24 21:10 Narrative Exam General: Elderly male. Obese, No acute distress, cooperative HEENT: NCAT, No JVD noted. Mucosa dry. Pupils are equal and reactive to light bilaterally, Left eyelid erythematous, swollen, non tender. Left side facial tightness, warm. Cardiovascular: Normal S1 and S2. Regular rate and rhythm. Respiratory: Lungs are clear to auscultation bilaterally. No wheezing or crackles heard. Abdomen: Soft, nontender, not distended, normal bowel sounds. Skin: Warm to touch, dry, no rashes noted Musculoskeletal: No gross injuries. Able to move only UE. No pitting edema, feet placed in foot cushions, no deformities. Neuro: Alert and oriented x3. No sensation in LE, no focal neuro deficits. Psych: Normal affect and mood Results: Labs 08/15/24 15:30 08/15/24 15:30 Labs: Short CBC 08/15/24 Range/Units 15:30 WBC 11.5 H (3.8-10.6) Thou/mm3 Hgb 14.3 (13.5-16.0) g/dL Hct 44.6 (41.0-53.0) % Plt Count 204 (140-440) Thou/mm3 BMP 08/15/24 15:30 Sodium 142 Potassium 4.4 Chloride 107 Carbon Dioxide 27.1 BUN 18 Creatinine 1.2 Glucose 134 H Calcium 8.9 Cardiac Enzymes 08/15/24 Range/Units 15:30 Troponin I < 0.020 (0.0-0.045) ng/mL Liver Function 08/15/24 Range/Units 15:30 Total Bilirubin 0.3 (0.3-1.2) mg/dL AST 21 (0-34) U/L ALT 16 (10-49) U/L Alkaline Phosphatase 85 (46-116) U/L Albumin 4.2 (3.4-4.8) gm/dL Urine 08/15/24 Range/Units 15:15 Urine Color Yellow (Lt Yel-Yel) Urine Clarity Clear (Clear/Hazy) Urine pH 7.0 (5.0-7.0) Ur Specific [place] 1.021 (1.001-1.035) Urine Protein Trace (Neg - Trace) Urine Glucose (UA) Negative (Negative) ABG Interpretation ABG results: 08/15/24 15:30 VBG pH 7.41 VBG pCO2 43 VBG pO2 44 VBG Base Excess 3 Quality Measures Quality Measures none Advance care planning discussed with:: patient Medications Home Medications and Allergies Home Medications ?Medication ?Instructions ?Recorded ?Confirmed ?Type atorvastatin 40 mg tablet (Lipitor) 40 mg PO HS #0 tabs 02/21/17 04/03/24 History folic acid 1 mg tablet 1 mg PO QDAY 07/08/17 04/03/24 History pyridostigmine bromide 60 mg tablet 60 mg PO Q6H 08/24/18 04/03/24 History amlodipine 2.5 mg tablet 2.5 mg PO QDAY 11/03/22 04/03/24 History calcium acetate(phosphat bind) 667 667 mg PO TIDWM 11/03/22 04/03/24 History mg capsule duloxetine 30 mg capsule,delayed 30 mg PO HS 11/03/22 04/03/24 History release fenofibrate nanocrystallized 145 145 mg PO QDAY 11/03/22 04/03/24 History mg tablet tamsulosin 0.4 mg capsule 0.4 mg PO BID 11/03/22 04/03/24 History tizanidine 4 mg tablet 4 mg PO QID 11/03/22 04/03/24 History acetaminophen 325 mg tablet 325 mg PO Q8H PRN breaktrhough pain 04/03/23 04/03/24 History (Tylenol) albuterol 90 mcg/actuation aerosol 180 mcg inhalation Q4H PRN SOB 04/03/23 04/03/24 History inhaler ascorbic acid (vitamin C) 500 mg 500 mg PO BID 04/03/23 04/03/24 History tablet aspirin 81 mg capsule 81 mg PO QDAY 04/03/23 04/03/24 History bisacodyl 10 mg rectal suppository 10 mg WV Q72H PRN Constipation 04/03/23 04/03/24 History (Dulcolax (bisacodyl)) cholecalciferol (vitamin D3) 25 50 mcg PO QDAY 04/03/23 04/03/24 History mcg (1,000 unit) tablet (Vitamin D3) cranberry fruit 450 mg tablet 425 mg PO QDAY 04/03/23 04/03/24 History (cranberry) docusate sodium 250 mg capsule 250 mg PO BID 04/03/23 04/03/24 History glucagon 1 mg solution for 1 mg subcut DAILY 04/03/23 04/03/24 History injection (Glucagon Emergency Kit) magnesium hydroxide 400 mg/5 mL 30 ml PO QDAY PRN Constipation 04/03/23 04/03/24 History oral suspension (Milk of Magnesia) magnesium oxide 400 mg PO HS 04/03/23 04/03/24 History multivitamin 1 tab PO QDAY 04/03/23 04/03/24 History ondansetron HCl 4 mg tablet 4 mg PO Q6H PRN NAUSEA OR VOMITNG 04/03/23 04/03/24 History thiamine HCl (vitamin B1) 100 mg 100 mg PO QDAY 04/03/23 04/03/24 History tablet oxycodone-acetaminophen 7.5 mg-325 1 tab Q6H PRN Severe Pain (Scale 03/13/24 01/01/25 History mg tablet Score 7-10) amitriptyline 50 mg tablet 50 mg PO QDAY 08/07/23 04/03/24 History cranberry extract 405 mg capsule 425 mg 04/03/24 History gabapentin 800 mg tablet 800 mg PO TID 04/03/24 04/03/24 History oxycodone-acetaminophen 7.5 mg-325 1 tab PO 4XD 04/03/24 04/03/24 History mg tablet ropinirole 1 mg tablet 1 mg PO BID 04/03/24 04/03/24 History Allergies Allergy/AdvReac Type Severity Reaction Status Date / Time No Known Allergies Allergy Verified 07/28/23 09:33 Visit Medications Acetaminophen (Acetaminophen 325 Mg Tablet) 650 mg PO Q6H PRN PRN Reason: Fever >100.3 or pain 1-3 Stop: 09/14/24 20:37 Heparin Sodium (Porcine) (Heparin Sod Inj 5000 Unit/Ml Vial) 5,000 unit SC Q8HR CARMITA Stop: 08/29/24 21:59 Ondansetron HCl (Ondansetron Inj 2 Mg/Ml Inj 2 Ml) 4 mg IV Q6H PRN; Protocol PRN Reason: NAUSEA OR VOMITING Stop: 09/14/24 20:37 Sennosides (Senna Tablet) 1 tab PO QDAY PRN; Protocol PRN Reason: constipation Stop: 09/14/24 20:37 Discontinued Medications Acetaminophen (Acetaminophen 325 Mg Tablet) 650 mg PO X1 ONE Stop: 08/15/24 15:05 Last Admin: 08/15/24 15:27 Dose: 650 mg Piperacillin/Tazobactam/Dextrose (Zosyn) 3.375 gm in 50 mls @ 100 mls/hr IV X1 ONE Stop: 08/15/24 16:02 Last Infusion: 08/15/24 17:01 Dose: Infused Sodium Chloride (Ns) 1,000 mls @ 999 mls/hr IV .Q1H1M ONE Stop: 08/15/24 19:22 Last Infusion: 08/15/24 19:37 Dose: Infused Meclizine HCl (Meclizine Hcl 25 Mg Tablet) 25 mg PO X1 ONE Stop: 08/15/24 15:10 Last Admin: 08/15/24 15:27 Dose: 25 mg Potassium Phos/Sodium Phos (Naph,[facility] Mbdb 1 Packet (1.5 Gm)) 1 packet PO X1 ONE Stop: 08/15/24 16:32 Last Admin: 08/15/24 18:36 Dose: 1 packet Assessment & Plan Plan Ramses Cross is 69 yr male with PMH of myasthenia gravis status post thymectomy, hypertension, BPH, type 2 diabetes, paraplegia status post 2 spinal surgeries, peripheral neuropathy, nephrolithiasis, possible colostomy, neurogenic bladder, history of CAD status post PCI, chronic pain presenting to ED from [facility] rehab due to facial swelling and neck swelling that started few weeks back. Patient to be admitted for IV antibiotics in setting of Facial cellulitis. #Facial cellulitis #Preseptal cellulitis Ddx: abscess, local allergic reaction, localized lesion of eyelid. Resenting with left-sided eye swelling, erythema, facial erythema. Patient was started on outpatient amoxicillin/clavulanate by PCP about 3 weeks ago. Completed 10-day course with no significant improvement. Presenting to ED with worsening symptoms. Blood pressure 183/93, febrile 102.5, leukocytosis 11.5. No evidence of endorgan damage. CT soft tissue neck read facial cellulitis with soft tissue swelling anterior to the left optic globe, no abscess. Doppler upper extremities negative for DVT. Was given Zosyn 3.375 x 1, 1 L bolus NS while in the ED. - Start Bactrim 160/800 BID - Pain management -blood culture pending #Enlarged CBD Seen on CT A/P and abdominal US. Abdominal exam benign. Bilirubin LFTs within normal limits. CBD 8 mm in size, normal gallbladder. - Day team to consider MRCP or outpatient follow-up #Electrolyte abnormalities Phosphate 1.5, magnesium 1.6 on admission - Replete as needed # History of myasthenia gravis status post thymectomy -Patient does not appear to be in myasthenic crisis as of now -Resumed his home medication pyridostigmine 60 Mg p.o. 6 hourly -Avoid macrolides, aminoglycosides and fluoroquinolones #Complicated UTI secondary to catheter related # Neurogenic bladder secondary to paraplegia # BPH He also reported that his Oreilly catheter was recently been replaced on August 13, 2024 at the facility. UA Urinalysis showed pH 7.0, specific gravity 1.021, trace proteins, blood 1+, positive nitrite, positive leukocyte esterase. Lactic acid 1.3. Patient has hx of ESBL UTI. -urine culture pending # Chronic peripheral neuropathy -Patient is using gabapentin 800 Mg p.o. 3 times daily, duloxetine 30 Mg p.o. at bedtime and amitriptyline 50 Mg p.o. daily # History of hypertension -Patient is using amlodipine 2.5 Mg # History of type 2 diabetes mellitus, controlled A1c 5.5 in Apr 2024. Glucose 134 admission. -glucose checks q6hr while on Bactrim. #Nicotine dependence Smokes 3-4 cig/day. -personal financial counselor -nicotine patch PRN Health maintenance: Dispo: FEN: DVT prophylaxis: Subcu heparin CODE STATUS: Full code The patient's management plan was discussed with my attending physician Dr. Gita Rondon, PGY-1 Attending Provider Attestation/Addendum I discussed with and supervised the resident physician who took care of this patient. I agree with the assessment and plan as above. This is a 69-year-old male patient with diabetes mellitus, coronary artery disease with history of stent, myasthenia gravis status post thymectomy, neurogenic bladder, history of spinal surgeries was being admitted for facial cellulitis failed outpatient treatment. The patient was noted to have left facial swelling involving the periorbital area as well. Patient is on IV antibiotic treatment.
[2024-08-15] MEDS: amLODIPine BESYLATE 5 MG TABLET PO (22:44)
[2024-08-15] MEDS: HEPARIN SOD INJ 5000 UNIT/ML VIAL SC (22:46)
[2024-08-15] MEDS: METOPROLOL TARTRATE INJ 1 MG/ML AMP 5 ML 2.5 MG IVP (22:46)
[2024-08-16] VITALS (14 sets, daily range): BP systolic 127–203; BP diastolic 66–104; PULSE 62–117; RESP 15–19; TEMP 36.3–39.2; O2SAT 97–99; BMI 34.6
[2024-08-16] MEDS: ACETAMINOPHEN 325 MG TABLET 650 MG PO (00:07)
[2024-08-16] MEDS: LABETALOL INJ 5 MG/ML VIAL 20 ML 10 MG IVP (04:49)
[2024-08-16] MEDS: HEPARIN SOD INJ 5000 UNIT/ML VIAL SC ×3 (05:22→21:37)
[2024-08-16] MEDS: oxyCODONE/APAP 5/325 TABLET 1 TAB PO ×2 (06:06→20:16)
[2024-08-16] MEDS: tiZANidine HCL 2 MG TABLET 6 MG PO ×4 (06:06→20:08)
[2024-08-16] MEDS: PREGABALIN 50 MG CAPSULE 200 MG PO ×3 (06:06→21:39)
[2024-08-16 06:23] LABS: Basophils % (Auto) 0 % (0-2.5); Eosinophils % (Auto) 0 % (0-10); Hematocrit 48.7 % (41.0-53.0); Hemoglobin 15.2 g/dL (13.5-16.0); Immature Granulocytes % (Auto) 0 % (0-0); Immature Granulocytes Auto 0.03 Thou/mm3 (0.00-0.00); Lymphocytes # (Auto) 1.3 Thou/mm3 (1.0-4.8); Lymphocytes % (Auto) 13 % (10-50); Mean Corpuscular HGB Conc 31.2 g/dl (31.0-37.0); Mean Corpuscular Hemoglobin 25.2 pg (25.0-35.0); Mean Corpuscular Volume 81 fL (80-100); Monocytes # (Auto) 0.7 Thou/mm3 (0.0-0.8); Monocytes % (Auto) 7 % (0-12); Neutrophils # (Auto) 7.6 Thou/mm3 (1.8-7.7); Neutrophils % (Auto) 79 % (37-80); Nucleated Red Blood Cell % 0 /100 WBC (0); Platelet Count 165 Thou/mm3 (140-440); RDW Standard Deviation 46.9 fL (35.1-43.9); Red Blood Count 6.03 Miln/mm3 (4.50-5.90); White Blood Count 9.6 Thou/mm3 (3.8-10.6)
[2024-08-16] MEDS: cefTRIAXone 2 GM in SODIUM CHLORIDE 0.9% (Popper) 50 ML IV (06:23)
[2024-08-16] MEDS: pyRIDostigmine bromide 60 MG TABLET PO ×4 (06:23→22:56)
[2024-08-16 06:49] LABS: Alanine Aminotransferase 15 U/L (10-49); Albumin, Serum 4.5 gm/dL (3.4-4.8); Albumin/Globulin Ratio 1.5 (1.2-2.2); Alkaline Phosphatase 70 U/L (46-116); Anion Gap 10 (7-16); Aspartate Amino Transferase 25 U/L (0-34); BUN/Creatinine Ratio 11 Ratio (12-20); Bilirubin,Total 0.5 mg/dL (0.3-1.2); Blood Urea Nitrogen 13 mg/dL (9-23); Calcium 8.9 mg/dL (8.3-10.6); Calcium (Corrected) 8.9 mg/dL (8.5-10.1); Chloride 104 mMol/L (98-107); Creatinine (Component) 1.2 mg/dL (0.6-1.3); Estimated Creatinine Clearance 60.9 mL/min (>60); Glucose 103 mg/dL (74-106); Magnesium 1.8 mg/dL (1.6-2.6); Osmolality,Calculated 283 (275-295); Phosphorous 2.7 mg/dL (2.4-5.1); Potassium 4.6 mMol/L (3.4-5.1); Sodium 142 mMol/L (136-145); Total Protein 7.5 gm/dL (5.7-8.2); eGFR > 60 See Note
[2024-08-16] MEDS: metroNIDAZOLE/NS 500 MG IVPB 500 MG/100 ML BAG 200 MG IV ×3 (07:11→21:39)
[2024-08-16] MEDS: Vancomycin Inj 1,000 MG, Vancomycin Inj 750 MG in SODIUM CHLORIDE 0.9% 500 ML 500 ML 171.429 MG IV (08:32)
[2024-08-16] MEDS: CALCIUM ACETATE 667 MG TABLET PO ×3 (08:32→17:58)
[2024-08-16] MEDS: DOCUSATE SOD 250 MG CAPSULE PO ×2 (08:32→20:08)
[2024-08-16] MEDS: amLODIPine BESYLATE 5 MG TABLET PO (08:33)
[2024-08-16] MEDS: ASPIRIN 81 MG CHEW PO (08:33)
[2024-08-16] MEDS: ASCORBIC ACID 250 MG TABLET 500 MG PO ×2 (08:51→20:07)
[2024-08-16] MEDS: FOLIC ACID 1 MG TABLET PO (08:51)
[2024-08-16] MEDS: CHOLECALCIFEROL (Vitamin D3) 1,000 IU TABLET 2000 IU PO (08:51)
[2024-08-16] MEDS: SENNA TABLET 1 TAB PO (09:41)
[2024-08-16] MEDS: bisacodyL 10 MG SUPP PR (09:42)
[2024-08-16] MEDS: FENOFIBRATE 145 MG TABLET (NON-FORMULARY) PO (09:42)
--- NOTE | 2024-08-16 10:17 | PC.SS ---
Ramses Cross is a 8 [id number] admitted for Facial Cellulitis. SS contacted patient's son, Gabriel to verify demographic information. He reports Pt is a terminal makeup operator resident from [facility] and reports patient is bed bound and wheelchair bound and needs assistance completing all ADL's. Surrogate decision maker is his son Gabriel Cross [phone]. Plan is for pt to return to [facility], pt will need gurney transport and has the insurance coverage. Plan: [facility] (Long-term resident) DM: Dangelo Cross [phone] PCP: Dr. Amanda
--- NOTE | 2024-08-16 10:25 | PC.SS ---
Ramses Cross is a 69 [id number] admitted for Facial Cellulitis. SS contacted patient's son, Gabriel to verify demographic information. He reports Pt is a custodial resident from [facility] and reports patient is bed bound and wheelchair bound and needs assistance completing all ADL's. Surrogate decision maker is his son Gabriel Cross [phone]. Plan is for patient to return to [facility], pt will need gurney transport and has the insurance coverage. Plan: [facility] (Long-term resident) DM: Dangelo Cross [phone] PCP: Dr. Amanda
--- NOTE | 2024-08-16 10:35 | PD.RESPRO ---
Documentation for date of: 08/16/24 Subjective Subjective Interval history: Overnight admission, seen and examined at bedside in telemetry. Upon further history, states that he has put on a silicone vest that may have caused irritation around his face and cannot recall any other significant events prior to onset of symptoms. Swelling starting to crossover from left eye to nose and now possibly on the right side as well. Currently on vancomycin, ceftriaxone, and Flagyl. Spiked fever 102.5 ?F overnight and continues to have low-grade fever 100.4 ?F. Leukocytosis improved, CHEM panel largely unremarkable. Given lack of abdominal pain, normal T. bili and alk phos, will defer MRCP at this time. Exam Vital Signs Temp Pulse Resp BP Pulse Ox O2 Del Method O2 Flow Rate 100.1 F 77 15 143/80 H 99 Nasal Cannula 2 08/16/24 08:00 08/16/24 08:33 08/16/24 08:00 08/16/24 08:33 08/16/24 08:00 08/16/24 08:00 08/16/24 08:00 Narrative Exam General: AOx3, no acute distress, able to speak full sentences HEENT: left eyelid edematous/nontender/shut with local discharge, erythema on upper left cheek, nose, and possibly to right side of face Cardiovascular: regular rate and rhythm, S1/S2 present, no murmurs appreciated Pulmonary: clear to auscultation bilaterally, no rales/rhonchi/wheezes Abdominal: soft, non-tender, non-distended, no rebound/guarding, normal bowel sounds present Musculoskeletal: can move upper extremities, lower extremities in SCDs Skin: warm and dry, intact, no rashes Neuro: can move upper extremities, lower extremities in SCDs; no other FNDs Objective Labs 08/17/24 05:42 08/17/24 05:42 Labs: Laboratory Results - last 24 hr 08/15/24 08/15/24 08/16/24 15:15 15:30 04:40 WBC 11.5 H 9.6 RBC 5.64 6.03 H Hgb 14.3 15.2 Hct 44.6 48.7 MCV 79 L 81 MCH 25.4 25.2 MCHC 32.1 31.2 RDW Std Deviation 44.6 H 46.9 H Plt Count 204 165 D Neut % (Auto) 85 H 79 Lymph % (Auto) 7 L 13 [place] % (Auto) 7 7 Eos % (Auto) 1 0 Baso % (Auto) 0 0 Neut # (Auto) 9.8 H 7.6 Lymph # (Auto) 0.8 L 1.3 [place] # (Auto) 0.8 0.7 Eos # (Auto) 0.1 0.0 Baso # (Auto) 0.0 0.0 Immature Gran # (Auto) 0.04 H 0.03 H Absolute Nucleated RBC 0.00 0.00 Immature Gran % 0 0 Nucleated RBC % 0 0 ESR 64 H PT 11.2 INR 1.0 APTT 27.9 VBG pH 7.41 VBG pCO2 43 VBG pO2 44 VBG O2 Sat ([place]) 83 L VBG Base Excess 3 Sodium 142 142 Potassium 4.4 4.6 Chloride 107 104 Carbon Dioxide 27.1 28.0 Anion Gap 8 10 BUN 18 13 Creatinine 1.2 1.2 Estim Creat Clear Calc 58.4 L 60.9 L eGFR > 60 > 60 BUN/Creatinine Ratio 15 11 L Glucose 134 H 103 Calculated Osmolality 287 283 Lactic Acid 1.3 Calcium 8.9 8.9 Corrected Calcium 8.9 8.9 Phosphorus 1.5 L 2.7 Magnesium 1.6 1.8 Total Bilirubin 0.3 0.5 AST 21 25 ALT 16 15 Alkaline Phosphatase 85 70 Troponin I < 0.020 C-Reactive Prot, Quant 6.2 H Total Protein 6.8 7.5 Albumin 4.2 4.5 Globulin 2.6 3.0 Albumin/Globulin Ratio 1.6 1.5 Procalcitonin 0.16 TSH 0.63 Ur Collection Type Clean Catch Urine Color Yellow Urine Clarity Clear Urine pH 7.0 Ur Specific [place] 1.021 Urine Protein Trace Urine Glucose (UA) Negative Urine Ketones Negative Urine Blood 1+ A Urine Nitrite Positive Urine Bilirubin Negative Urine Urobilinogen (Auto) 2.0 Ur Leukocyte Esterase Positive Urine RBC < 1 Urine WBC 0 Ur Squamous Epith Cells 0 Urine Bacteria None ABG Interpretation ABG results: 08/15/24 15:30 VBG pH 7.41 VBG pCO2 43 VBG pO2 44 VBG Base Excess 3 Quality Measures Quality Measures none Advance care planning discussed with:: patient Assessment & Plan Assessment Current Active Medications: Generic Name Dose Route Start Last Admin Trade Name Freq PRN Reason Stop Dose Admin Acetaminophen 650 mg 08/15/24 20:38 08/16/24 00:07 Acetaminophen 325 Mg Tablet PO 09/14/24 20:37 650 mg Q6H PRN Administration Fever >100.3 or pain 1-3 Amlodipine Besylate 5 mg 08/15/24 22:05 08/16/24 08:33 Amlodipine Besylate 5 Mg Tablet PO 09/14/24 22:04 5 mg DAILY CARMITA Administration Ascorbic Acid 500 mg 08/16/24 09:00 08/16/24 08:51 Ascorbic Acid 250 Mg Tablet PO 09/15/24 08:59 500 mg BID CARMITA Administration Aspirin 81 mg 08/16/24 09:00 08/16/24 08:33 Aspirin 81 Mg Chew PO 09/15/24 08:59 81 mg QDAY CARMITA Administration Atorvastatin Calcium 40 mg 08/16/24 21:00 Atorvastatin Calcium 20 Mg Tablet PO 09/15/24 20:59 HS [facility] Bisacodyl 10 mg 08/16/24 05:33 08/16/24 09:42 Bisacodyl 10 Mg Supp [place] 09/15/24 05:32 10 mg Q72H PRN Administration Constipation Protocol Calcium Acetate 667 mg 08/16/24 08:00 08/16/24 08:32 Calcium Acetate 667 Mg Tablet PO 09/15/24 07:59 667 mg TIDWM CARMITA Administration Docusate Sodium 250 mg 08/16/24 09:00 08/16/24 08:32 Docusate Sod 250 Mg Capsule PO 09/15/24 08:59 250 mg BID CARMITA Administration Protocol Duloxetine HCl 60 mg 08/16/24 21:00 Duloxetine Hcl 30 Mg Capsule PO 09/15/24 20:59 HS [facility] Fenofibrate 145 mg 08/16/24 09:00 08/16/24 09:42 Fenofibrate 145 Mg Tablet (Non-Formulary) PO 09/15/24 08:59 145 mg QDAY CARMITA Administration Folic Acid 1 mg 08/16/24 09:00 08/16/24 08:51 Folic Acid 1 Mg Tablet PO 09/15/24 08:59 1 mg QDAY CARMITA Administration Heparin Sodium (Porcine) 5,000 unit 08/15/24 22:00 08/16/24 05:22 Heparin Sod Inj 5000 Unit/Ml Vial SC 08/29/24 21:59 5,000 unit Q8HR CARMITA Administration Hydralazine HCl 10 mg 08/16/24 08:30 Hydralazine Inj 20 Mg/Ml Vial IV X1 PRN Hypertension Ceftriaxone Sodium 2 gm/ 50 mls @ 100 mls/hr 08/16/24 06:01 08/16/24 06:23 Sodium Chloride IV 08/23/24 06:00 100 mls/hr QDAY CARMITA Administration Metronidazole 500 mg in 100 mls @ 200 mls/hr 08/16/24 06:30 08/16/24 07:11 Flagyl 500 Mg Iv IV 08/23/24 06:29 200 mls/hr Q8HR CARMITA Administration Vancomycin HCl 1,000 mg/ 500 mls @ 171.429 mls/hr 08/16/24 08:00 08/16/24 08:32 Vancomycin HCl 750 mg/ Sodium IV 08/16/24 10:54 171.429 mls/hr Chloride X1 ONE Administration Vancomycin HCl 1,500 mg/ 500 mls @ 200 mls/hr 08/17/24 10:00 Sodium Chloride IV 08/24/24 09:59 QDAY@1000 CARMITA Protocol Labetalol HCl 10 mg 08/16/24 04:00 08/16/24 04:49 Labetalol Inj 5 Mg/Ml Vial 20 Ml IVP 09/15/24 03:59 10 mg Q6HR PRN Administration sbp>180 Magnesium Hydroxide 30 ml 08/16/24 05:33 Milk Of Magnesia Susp 30 Ml Udc PO 09/15/24 05:32 QDAY PRN Constipation Protocol Magnesium Oxide 400 mg 08/16/24 21:00 Magnesium Oxide 400 Mg Tablet PO 09/15/24 20:59 HS CARMITA Ondansetron HCl 4 mg 08/15/24 20:38 Ondansetron Inj 2 Mg/Ml Inj 2 Ml IV 09/14/24 20:37 Q6H PRN NAUSEA OR VOMITING Protocol Oxycodone/Acetaminophen 1 tab 08/16/24 05:59 08/16/24 06:06 Oxycodone/Apap 5/325 Tablet PO 08/21/24 05:35 1 tab Q6HR PRN Administration PAIN SCALE 4-10(Mod-Sev Protocol Pharmacy Consult 1 each 08/16/24 09:00 Vancomycin Pharmacy To Dose 1 Each Each IV 09/15/24 08:59 QDAY PRN PROTOCOL Pregabalin 200 mg 08/16/24 06:00 08/16/24 06:06 Pregabalin 50 Mg Capsule PO 09/15/24 05:59 200 mg TID CARMITA Administration Pyridostigmine [place] 60 mg 08/16/24 05:45 08/16/24 06:23 Pyridostigmine [place] 60 Mg Tablet PO 09/15/24 05:44 60 mg Q6H CARMITA Administration Sennosides 1 tab 08/15/24 20:38 08/16/24 09:41 Senna Tablet PO 09/14/24 20:37 1 tab QDAY PRN Administration constipation Protocol Tamsulosin HCl 0.4 mg 08/16/24 21:00 Tamsulosin Hcl 0.4 Mg Capsule PO 09/15/24 20:59 HS CARMITA Tizanidine HCl 6 mg 08/16/24 06:00 08/16/24 06:06 Tizanidine Hcl 2 Mg Tablet PO 09/15/24 05:59 6 mg QID CARMITA Administration Vitamin D 2,000 iu 08/16/24 09:00 08/16/24 08:51 Cholecalciferol (Vitamin D3) 1,000 Iu Tablet PO 09/15/24 08:59 2,000 iu QDAY CARMITA Administration Plan [place] is a 69-year-old male with a past medical history of paraplegia status post 2 spinal surgeries, CAD status post PCI (2006), hypertension, type 2 diabetes, peripheral neuropathy, myasthenia gravis status post thymectomy, BPH, nephrolithiasis, neurogenic bladder, chronic pain who was admitted for facial cellulitis. #Facial cellulitis #Preseptal cellulitis Swelling and erythema on left upper cheek, eyelid, nose, and possibly right side of face. Finished 10-day coursre of outpatient amoxicillin/clavulanate by PCP 3 weeks ago. Blood pressure 183/93, febrile 102.5, leukocytosis 11.5. No evidence of endorgan damage. CT soft tissue neck: facial cellulitis with soft tissue swelling anterior to left optic globe, no abscess. Doppler upper extremities negative for DVT. Given Zosyn 3.375 x 1, 1 L bolus NS while in ED. ? Ceftriaxone 2 g IV daily (08/16-) ? Flagyl 500 mg IV every 8 hours (08/16-) ? Vancomycin (08/16-) ? Follow-up blood culture #Enlarged CBD CT A/P and abdominal US showed enlarged CBD. Abdominal exam benign, bilirubin and LFTs within normal limits. ? Given above findings, will defer MRCP for now #Electrolyte abnormalities Phosphate 1.5, magnesium 1.6 on admission ? Replete as needed #History of myasthenia gravis status post thymectomy Not appear in myasthenic crisis as of now ? Resumed home pyridostigmine 60 60 mg p.o. q6h ? Avoid macrolides, aminoglycosides and fluoroquinolones #History of catheter-associated UTI [place] catheter replaced on 08/13/2024 at his facility. UA showed pH 7.0, trace proteins, blood 1+, positive nitrite, positive leukocyte esterase. Lactic acid 1.3. History of ESBL UTI. ? Urine culture pending ? Antibiotics as above #Neurogenic bladder secondary to paraplegia #BPH ? Tamsulosin #Chronic peripheral neuropathy ? Duloxetine 60 mg p.o. HS ? Pregabalin 200 mg p.o. TID ? Tizanidine 6 mg p.o. QID #CAD s/p stent ? Aspirin 81 mg p.o. daily ? Atorvastatin 40 mg p.o. HS #History of hypertension ? Amlodipine 5 mg p.o. daily #Hyperlipidemia ? Atorvastatin 40 mg p.o. HS #History of type 2 diabetes mellitus, controlled A1c 5.5 in Apr 2024. Glucose 134 admission. ? Glucose checks q6hr #Nicotine dependence Smokes 3-4 cig/day. ? Counselled on nicotine use ? Nicotine patch PRN Hospital management: Disposition: IV antibiotics, pending cultures Diet: regular Lines: PIV DVT prophylaxis: heparin SC TID [place]: placed CODE STATUS: full code ----- Plan discussed with attending physician Dr. Gilles Hyde MD PGY-1 Internal Medicine Attending Provider Attestation/Addendum I reviewed labs, imaging, EKG, home medications and prior available records. Face to face evaluation was performed by me. I have personally examined the patient and discussed assessment and plan with the IM team. I reviewed the resident note and agree with the plan with exceptions as below. Left face cellulitis Enlarged CBD CAD status post stenting Myasthenia gravis Continue IV vancomycin/ceftriaxone/Flagyl Follow-up cultures Resume home aspirin and atorvastatin Resume home pyridostigmine
--- NOTE | 2024-08-16 10:53 | PC.SS ---
SS follow up note; Patient is on IV ABX. Cultures pending. Patient will return back to [facility] when medically cleared.
[2024-08-16 19:55] LABS: Strep A Rapid Negative (Negative)
[2024-08-16] MEDS: MAGNESIUM OXIDE 400 MG TABLET PO (20:08)
[2024-08-16] MEDS: ATORVASTATIN CALCIUM 20 MG TABLET 40 MG PO (20:08)
[2024-08-16] MEDS: TAMSULOSIN HCL 0.4 MG CAPSULE PO (20:08)
[2024-08-16] MEDS: DULoxetine HCL 30 MG CAPSULE 60 MG PO (20:08)
[2024-08-17] VITALS (12 sets, daily range): BP systolic 93–127; BP diastolic 51–70; PULSE 58–72; RESP 14–18; TEMP 36.1–36.8; O2SAT 92–99; BMI 34.4
[2024-08-17] MEDS: pyRIDostigmine bromide 60 MG TABLET PO ×4 (05:37→23:44)
[2024-08-17] MEDS: PREGABALIN 50 MG CAPSULE 200 MG PO ×3 (05:39→21:25)
[2024-08-17] MEDS: HEPARIN SOD INJ 5000 UNIT/ML VIAL SC ×3 (05:39→21:26)
[2024-08-17] MEDS: tiZANidine HCL 2 MG TABLET 6 MG PO ×4 (05:39→21:25)
[2024-08-17] MEDS: metroNIDAZOLE/NS 500 MG IVPB 500 MG/100 ML BAG 200 MG IV ×3 (05:43→21:28)
[2024-08-17 06:38] LABS: Basophils % (Auto) 0 % (0-2.5); Eosinophils # (Auto) 0.1 Thou/mm3 (0.0-0.5); Eosinophils % (Auto) 2 % (0-10); Hemoglobin 13.5 g/dL (13.5-16.0); Immature Granulocytes % (Auto) 1 % (0-0); Immature Granulocytes Auto 0.03 Thou/mm3 (0.00-0.00); Lymphocytes # (Auto) 1.2 Thou/mm3 (1.0-4.8); Lymphocytes % (Auto) 17 % (10-50); Mean Corpuscular HGB Conc 31.4 g/dl (31.0-37.0); Mean Corpuscular Hemoglobin 25.3 pg (25.0-35.0); Mean Corpuscular Volume 81 fL (80-100); Monocytes # (Auto) 0.7 Thou/mm3 (0.0-0.8); Monocytes % (Auto) 11 % (0-12); Neutrophils # (Auto) 4.6 Thou/mm3 (1.8-7.7); Neutrophils % (Auto) 69 % (37-80); Nucleated Red Blood Cell % 0 /100 WBC (0); Platelet Count 191 Thou/mm3 (140-440); RDW Standard Deviation 46.7 fL (35.1-43.9); Red Blood Count 5.34 Miln/mm3 (4.50-5.90); White Blood Count 6.7 Thou/mm3 (3.8-10.6)
[2024-08-17 07:02] LABS: Alanine Aminotransferase 14 U/L (10-49); Albumin, Serum 4.1 gm/dL (3.4-4.8); Albumin/Globulin Ratio 1.6 (1.2-2.2); Alkaline Phosphatase 56 U/L (46-116); Anion Gap 10 (7-16); Aspartate Amino Transferase 20 U/L (0-34); BUN/Creatinine Ratio 17 Ratio (12-20); Bilirubin,Total 0.3 mg/dL (0.3-1.2); Blood Urea Nitrogen 17 mg/dL (9-23); Calcium 8.7 mg/dL (8.3-10.6); Calcium (Corrected) 8.7 mg/dL (8.5-10.1); Carbon Dioxide 25.3 mMol/L (20.0-31.0); Chloride 106 mMol/L (98-107); Estimated Creatinine Clearance 73.1 mL/min (>60); Globulin 2.5 gm/dL (2.3-3.5); Glucose 100 mg/dL (74-106); Osmolality,Calculated 282 (275-295); Potassium 4.4 mMol/L (3.4-5.1); Sodium 141 mMol/L (136-145); Total Protein 6.6 gm/dL (5.7-8.2); eGFR > 60 See Note
[2024-08-17] MEDS: FENOFIBRATE 145 MG TABLET (NON-FORMULARY) PO (09:49)
[2024-08-17] MEDS: DOCUSATE SOD 250 MG CAPSULE PO ×2 (09:49→21:25)
[2024-08-17] MEDS: CALCIUM ACETATE 667 MG TABLET PO ×3 (09:49→17:47)
[2024-08-17] MEDS: ASCORBIC ACID 250 MG TABLET 500 MG PO ×2 (09:50→21:25)
[2024-08-17] MEDS: FOLIC ACID 1 MG TABLET PO (09:51)
[2024-08-17] MEDS: CHOLECALCIFEROL (Vitamin D3) 1,000 IU TABLET 2000 IU PO (09:51)
[2024-08-17] MEDS: ASPIRIN 81 MG CHEW PO (09:52)
[2024-08-17] MEDS: cefTRIAXone 2 GM in SODIUM CHLORIDE 0.9% (Popper) 50 ML IV (09:53)
[2024-08-17] MEDS: VANCOMYCIN/NS 750 MG IVPB 750 MG/150 ML BAG 120 MG IV ×2 (10:34→19:22)
--- NOTE | 2024-08-17 12:13 | PD.RESPRO ---
Documentation for date of: 08/17/24 Subjective Subjective Interval history: No acute overnight events noted. Seen and examined at bedside and denies any fever, chills, N/V, abdominal pain. Cellulitis improved and left eyelid is no longer shut from discharge. No recorded fevers overnight, leukocytosis now improved, and chem panel unremarkable. Blood and urine cultures still no growth to date and rapid strep negative, however, MRSA nares noted to be positive. Anticipate discharge within next 24-48 hours on oral antibiotics. Exam Vital Signs Temp Pulse Resp BP Pulse Ox O2 Del Method O2 Flow Rate 97.2 F 58 L 15 93/51 L 99 Nasal Cannula 2 08/17/24 08:00 08/17/24 10:04 08/17/24 08:00 08/17/24 10:04 08/17/24 08:00 08/17/24 08:00 08/17/24 08:00 Narrative Exam General: AOx3, no acute distress, able to speak full sentences HEENT: erythema on left cheek, nose, and right-side of face all improved; left eyelid no longer shut with discahrge Cardiovascular: regular rate and rhythm, S1/S2 present, no murmurs appreciated Pulmonary: clear to auscultation bilaterally, no rales/rhonchi/wheezes Abdominal: soft, non-tender, non-distended, no rebound/guarding, normal bowel sounds present Musculoskeletal: can move upper extremities, lower extremities in SCDs Skin: warm and dry, intact, no rashes Neuro: can move upper extremities, lower extremities in SCDs; no other FNDs Objective Labs 08/17/24 05:42 08/17/24 05:42 Labs: Laboratory Results - last 24 hr 08/16/24 08/17/24 19:09 05:42 WBC 6.7 RBC 5.34 Hgb 13.5 Hct 43.0 MCV 81 MCH 25.3 MCHC 31.4 RDW Std Deviation 46.7 H Plt Count 191 Neut % (Auto) 69 Lymph % (Auto) 17 [place] % (Auto) 11 Eos % (Auto) 2 Baso % (Auto) 0 Neut # (Auto) 4.6 Lymph # (Auto) 1.2 [place] # (Auto) 0.7 Eos # (Auto) 0.1 Baso # (Auto) 0.0 Immature Gran # (Auto) 0.03 H Absolute Nucleated RBC 0.00 Immature Gran % 1 H Nucleated RBC % 0 Sodium 141 Potassium 4.4 Chloride 106 Carbon Dioxide 25.3 Anion Gap 10 BUN 17 Creatinine 1.0 Estim Creat Clear Calc 73.1 eGFR > 60 BUN/Creatinine Ratio 17 Glucose 100 Calculated Osmolality 282 Calcium 8.7 Corrected Calcium 8.7 Total Bilirubin 0.3 AST 20 ALT 14 Alkaline Phosphatase 56 Total Protein 6.6 Albumin 4.1 Globulin 2.5 Albumin/Globulin Ratio 1.6 Group A Strep Rapid Negative ABG Interpretation ABG results: 08/15/24 15:30 VBG pH 7.41 VBG pCO2 43 VBG pO2 44 VBG Base Excess 3 Quality Measures Quality Measures none Advance care planning discussed with:: patient Assessment & Plan Assessment Current Active Medications: Generic Name Dose Route Start Last Admin Trade Name Freq PRN Reason Stop Dose Admin Acetaminophen 650 mg 08/15/24 20:38 08/16/24 00:07 Acetaminophen 325 Mg Tablet PO 09/14/24 20:37 650 mg Q6H PRN Administration Fever >100.3 or pain 1-3 Amlodipine Besylate 5 mg 08/15/24 22:05 08/17/24 10:04 Amlodipine Besylate 5 Mg Tablet PO 09/14/24 22:04 Not Given DAILY CARMITA Ascorbic Acid 500 mg 08/16/24 09:00 08/17/24 09:50 Ascorbic Acid 250 Mg Tablet PO 09/15/24 08:59 500 mg BID CARMITA Administration Aspirin 81 mg 08/16/24 09:00 08/17/24 09:52 Aspirin 81 Mg Chew PO 09/15/24 08:59 81 mg QDAY CARMITA Administration Atorvastatin Calcium 40 mg 08/16/24 21:00 08/16/24 20:08 Atorvastatin Calcium 20 Mg Tablet PO 09/15/24 20:59 40 mg HS CARMITA Administration Bisacodyl 10 mg 08/16/24 05:33 08/16/24 09:42 Bisacodyl 10 Mg Supp [place] 09/15/24 05:32 10 mg Q72H PRN Administration Constipation Protocol Calcium Acetate 667 mg 08/16/24 08:00 08/17/24 09:49 Calcium Acetate 667 Mg Tablet PO 09/15/24 07:59 667 mg TIDWM CARMITA Administration Docusate Sodium 250 mg 08/16/24 09:00 08/17/24 09:49 Docusate Sod 250 Mg Capsule PO 09/15/24 08:59 250 mg BID CARMITA Administration Protocol Duloxetine HCl 60 mg 08/16/24 21:00 08/16/24 20:08 Duloxetine Hcl 30 Mg Capsule PO 09/15/24 20:59 60 mg HS CARMITA Administration Fenofibrate 145 mg 08/16/24 09:00 08/17/24 09:49 Fenofibrate 145 Mg Tablet (Non-Formulary) PO 09/15/24 08:59 145 mg QDAY CARMITA Administration Folic Acid 1 mg 08/16/24 09:00 08/17/24 09:51 Folic Acid 1 Mg Tablet PO 09/15/24 08:59 1 mg QDAY CARMITA Administration Heparin Sodium (Porcine) 5,000 unit 08/15/24 22:00 08/17/24 05:39 Heparin Sod Inj 5000 Unit/Ml Vial SC 08/29/24 21:59 5,000 unit Q8HR CARMITA Administration Hydralazine HCl 10 mg 08/16/24 08:30 Hydralazine Inj 20 Mg/Ml Vial IV X1 PRN Hypertension Protocol Ceftriaxone Sodium 2 gm/ 50 mls @ 100 mls/hr 08/16/24 06:01 08/17/24 09:53 Sodium Chloride IV 08/23/24 06:00 100 mls/hr QDAY CARMITA Administration Metronidazole 500 mg in 100 mls @ 200 mls/hr 08/16/24 06:30 08/17/24 05:43 Flagyl 500 Mg Iv IV 08/23/24 06:29 200 mls/hr Q8HR CARMITA Administration Vancomycin/Sodium Chloride 750 mg in 150 mls @ 120 mls/hr 08/17/24 08:45 08/17/24 10:34 Vancomycin/Ns 750 Mg Ivpb IV 08/24/24 08:44 120 mls/hr BID@0700,1900 CARMITA Administration Protocol Labetalol HCl 10 mg 08/16/24 04:00 08/16/24 04:49 Labetalol Inj 5 Mg/Ml Vial 20 Ml IVP 09/15/24 03:59 10 mg Q6HR PRN Administration sbp>180 Protocol Magnesium Hydroxide 30 ml 08/16/24 05:33 Milk Of Magnesia Susp 30 Ml Udc PO 09/15/24 05:32 QDAY PRN Constipation Protocol Magnesium Oxide 400 mg 08/16/24 21:00 08/16/24 20:08 Magnesium Oxide 400 Mg Tablet PO 09/15/24 20:59 400 mg HS CARMITA Administration Ondansetron HCl 4 mg 08/15/24 20:38 Ondansetron Inj 2 Mg/Ml Inj 2 Ml IV 09/14/24 20:37 Q6H PRN NAUSEA OR VOMITING Protocol Oxycodone/Acetaminophen 1 tab 08/16/24 05:59 08/16/24 20:16 Oxycodone/Apap 5/325 Tablet PO 08/21/24 05:35 1 tab Q6HR PRN Administration PAIN SCALE 4-10(Mod-Sev Protocol Pharmacy Consult 1 each 08/16/24 09:00 Vancomycin Pharmacy To Dose 1 Each Each IV 09/15/24 08:59 QDAY PRN PROTOCOL Pregabalin 200 mg 08/16/24 06:00 08/17/24 05:39 Pregabalin 50 Mg Capsule PO 09/15/24 05:59 200 mg TID CARMITA Administration Pyridostigmine [place] 60 mg 08/16/24 05:45 08/17/24 05:37 Pyridostigmine [place] 60 Mg Tablet PO 09/15/24 05:44 60 mg Q6H CARMITA Administration Sennosides 1 tab 08/15/24 20:38 08/16/24 09:41 Senna Tablet PO 09/14/24 20:37 1 tab QDAY PRN Administration constipation Protocol Tamsulosin HCl 0.4 mg 08/16/24 21:00 08/16/24 20:08 Tamsulosin Hcl 0.4 Mg Capsule PO 09/15/24 20:59 0.4 mg HS CARMITA Administration Tizanidine HCl 6 mg 08/16/24 06:00 08/17/24 05:39 Tizanidine Hcl 2 Mg Tablet PO 09/15/24 05:59 6 mg QID CARMITA Administration Vitamin D 2,000 iu 08/16/24 09:00 08/17/24 09:51 Cholecalciferol (Vitamin D3) 1,000 Iu Tablet PO 09/15/24 08:59 2,000 iu QDAY CARMITA Administration Plan [place] is a 69-year-old male with a past medical history of paraplegia status post 2 spinal surgeries, CAD status post PCI (2006), hypertension, type 2 diabetes, peripheral neuropathy, myasthenia gravis status post thymectomy, BPH, nephrolithiasis, neurogenic bladder, chronic pain who was admitted for facial cellulitis. #Facial cellulitis #Preseptal cellulitis Swelling and erythema on left upper cheek, eyelid, nose, and possibly right side of face. Finished 10-day coursre of outpatient amoxicillin/clavulanate by PCP 3 weeks ago. Blood pressure 183/93, febrile 102.5, leukocytosis 11.5. No evidence of endorgan damage. CT soft tissue neck: facial cellulitis with soft tissue swelling anterior to left optic globe, no abscess. Doppler upper extremities negative for DVT. Given Zosyn 3.375 x 1, 1 L bolus NS while in ED. ? Ceftriaxone 2 g IV daily (08/16-) ? Flagyl 500 mg IV every 8 hours (08/16-) ? Vancomycin (08/16-) ? Follow-up blood culture #Enlarged CBD CT A/P and abdominal US showed enlarged CBD. Abdominal exam benign, bilirubin and LFTs within normal limits. ? Given above findings, will defer MRCP for now #Electrolyte abnormalities Phosphate 1.5, magnesium 1.6 on admission ? Replete as needed #History of myasthenia gravis status post thymectomy Not appear in myasthenic crisis as of now ? Resumed home pyridostigmine 60 60 mg p.o. q6h ? Avoid macrolides, aminoglycosides and fluoroquinolones #History of catheter-associated UTI [place] catheter replaced on 08/13/2024 at his facility. UA showed pH 7.0, trace proteins, blood 1+, positive nitrite, positive leukocyte esterase. Lactic acid 1.3. History of ESBL UTI. ? Urine culture pending ? Antibiotics as above #Neurogenic bladder secondary to paraplegia #BPH ? Tamsulosin #Chronic peripheral neuropathy ? Duloxetine 60 mg p.o. HS ? Pregabalin 200 mg p.o. TID ? Tizanidine 6 mg p.o. QID #CAD s/p stent ? Aspirin 81 mg p.o. daily ? Atorvastatin 40 mg p.o. HS #History of hypertension ? Amlodipine 5 mg p.o. daily #Hyperlipidemia ? Atorvastatin 40 mg p.o. HS #History of type 2 diabetes mellitus, controlled A1c 5.5 in Apr 2024. Glucose 134 admission. ? Glucose checks q6hr #Nicotine dependence Smokes 3-4 cig/day. ? Counselled on nicotine use ? Nicotine patch PRN Hospital management: Disposition: IV antibiotics, pending cultures Diet: regular Lines: PIV DVT prophylaxis: heparin SC TID [place]: placed CODE STATUS: full code ----- Plan discussed with attending physician Dr. Gilels Hyde MD PGY-1 Internal Medicine Attending Provider Attestation/Addendum I reviewed labs, imaging, EKG, home medications and prior available records. Face to face evaluation was performed by me. I have personally examined the patient and discussed assessment and plan with the IM team. I reviewed the resident note and agree with the plan with exceptions as below. Left face cellulitis Enlarged CBD CAD status post stenting Myasthenia gravis Chronic back pain Peripheral neuropathy Continue IV vancomycin/ceftriaxone/Flagyl Follow-up cultures: Negative to date Resumed home aspirin and atorvastatin Resumed home pyridostigmine Resumed home Lyrica
[2024-08-17] MEDS: oxyCODONE/APAP 5/325 TABLET 1 TAB PO ×2 (12:41→21:44)
[2024-08-17] MEDS: DULoxetine HCL 30 MG CAPSULE 60 MG PO (21:25)
[2024-08-17] MEDS: MAGNESIUM OXIDE 400 MG TABLET PO (21:25)
[2024-08-17] MEDS: TAMSULOSIN HCL 0.4 MG CAPSULE PO (21:26)
[2024-08-17] MEDS: ATORVASTATIN CALCIUM 20 MG TABLET 40 MG PO (21:26)
[2024-08-18] VITALS (7 sets, daily range): BP systolic 120–167; BP diastolic 66–72; PULSE 54–73; RESP 15–20; TEMP 36.2–36.7; O2SAT 95–99; BMI 34.2
[2024-08-18] MEDS: HEPARIN SOD INJ 5000 UNIT/ML VIAL SC (05:28)
[2024-08-18] MEDS: metroNIDAZOLE/NS 500 MG IVPB 500 MG/100 ML BAG 200 MG IV (05:30)
[2024-08-18] MEDS: oxyCODONE/APAP 5/325 TABLET 1 TAB PO ×2 (05:30→11:21)
[2024-08-18] MEDS: pyRIDostigmine bromide 60 MG TABLET PO ×2 (05:30→11:21)
[2024-08-18] MEDS: PREGABALIN 50 MG CAPSULE 200 MG PO (05:30)
[2024-08-18 05:35] LABS: Basophils % (Auto) 1 % (0-2.5); Eosinophils # (Auto) 0.3 Thou/mm3 (0.0-0.5); Eosinophils % (Auto) 5 % (0-10); Hematocrit 42.4 % (41.0-53.0); Hemoglobin 12.9 g/dL (13.5-16.0); Immature Granulocytes % (Auto) 1 % (0-0); Immature Granulocytes Auto 0.03 Thou/mm3 (0.00-0.00); Lymphocytes # (Auto) 1.2 Thou/mm3 (1.0-4.8); Lymphocytes % (Auto) 21 % (10-50); Mean Corpuscular HGB Conc 30.4 g/dl (31.0-37.0); Mean Corpuscular Hemoglobin 24.9 pg (25.0-35.0); Mean Corpuscular Volume 82 fL (80-100); Monocytes # (Auto) 0.5 Thou/mm3 (0.0-0.8); Monocytes % (Auto) 10 % (0-12); Neutrophils # (Auto) 3.6 Thou/mm3 (1.8-7.7); Neutrophils % (Auto) 64 % (37-80); Nucleated Red Blood Cell % 0 /100 WBC (0); Platelet Count 205 Thou/mm3 (140-440); RDW Standard Deviation 46.9 fL (35.1-43.9); Red Blood Count 5.18 Miln/mm3 (4.50-5.90); White Blood Count 5.7 Thou/mm3 (3.8-10.6)
[2024-08-18] MEDS: tiZANidine HCL 2 MG TABLET 6 MG PO ×2 (05:42→11:21)
[2024-08-18 06:29] LABS: Alanine Aminotransferase 12 U/L (10-49); Albumin, Serum 3.9 gm/dL (3.4-4.8); Albumin/Globulin Ratio 1.6 (1.2-2.2); Alkaline Phosphatase 70 U/L (46-116); Anion Gap 7 (7-16); Aspartate Amino Transferase 22 U/L (0-34); BUN/Creatinine Ratio 16 Ratio (12-20); Bilirubin,Total < 0.2 mg/dL (0.3-1.2); Blood Urea Nitrogen 16 mg/dL (9-23); Calcium 8.5 mg/dL (8.3-10.6); Calcium (Corrected) 8.6 mg/dL (8.5-10.1); Carbon Dioxide 29.7 mMol/L (20.0-31.0); Chloride 107 mMol/L (98-107); Estimated Creatinine Clearance 72.9 mL/min (>60); Globulin 2.5 gm/dL (2.3-3.5); Glucose 101 mg/dL (74-106); Osmolality,Calculated 288 (275-295); Potassium 4.3 mMol/L (3.4-5.1); Sodium 144 mMol/L (136-145); Total Protein 6.4 gm/dL (5.7-8.2); Vancomycin,Trough 13.2 mcg/mL (5.0-10.0); eGFR > 60 See Note
--- NOTE | 2024-08-18 06:59 | PC.SS ---
Addendum entered by Amelia Robles 08/18/24 08:59: SS follow up note; SS attempted to contact Beth from [facility] however was unsuccessful. SS left voicemail. SS also attempted to contact [facility] facility and there was no answer as well. SS will attempt to make contact again. Original Note: SS set up transportation with with [facility], [place], Reference # [id number]. Patient will contact Beth from [facility] once [facility] finds Transportation team.
--- NOTE | 2024-08-18 07:23 | ESDS_ITS ---
Planned Discharge Date 08/18/24 DS: Providers Provider Date of admission: 08/15/24 20:38 Primary care physician: Physician No Primary/Family Admitting Provider: Amando Martinez MD Attending Provider on Admission: Amando Martinez MD Attending Provider on DC: Cole Hyde MD Discharging Provider: Cole Hyde MD DS: Diagnosis Problem List Completed Was Problem List Reviewed/Reconciled?: Yes Hospital Course Hospital Course Hospital course: No acute overnight events noted. Seen and examined at bedside and denies any fever, chills, N/V, abdominal pain. Cellulitis improved and left eyelid is no longer shut from discharge. No recorded fevers overnight, leukocytosis now improved, and chem panel unremarkable. Blood and urine cultures still no growth to date and rapid strep negative, however, MRSA nares noted to be positive. Anticipate discharge within next 24-48 hours on oral antibiotics. Time Spent with Patient Time attestation: Total time spent providing and/or coordinating discharge services: Time spent: Greater than 30 minutes Exam Vital Signs Temp Pulse Resp BP Pulse Ox O2 Del Method O2 Flow Rate 97.3 F 70 19 152/71 H 99 Nasal Cannula 2 08/18/24 04:00 08/18/24 04:00 08/18/24 04:00 08/18/24 04:00 08/18/24 04:00 08/18/24 04:00 08/18/24 04:00 Discharge Plan Plan Patient Disposition: Xfer [facility] Fac (SNF) Care Plan Goals: ? Continue clindamycin and augmentin until 08/30/2024; if symptoms have not resolved contact your PCP for refill until symptoms have completely resolved ? Continue taking all other home medications as prescribed ? Follow-up with PCP within 1-2 weeks of discharge ? If you do not have a PCP, you can follow-up at the [facility] (you can call [phone] to make an appointment) ? If you wish to follow-up with Dr. Hyde, schedule appointment on Monday afternoons ? Return to ED if symptoms worsen or recur Prescriptions/Referrals Prescriptions/Med Rec: New amoxicillin-pot clavulanate 875-125 mg tablet 1 tab PO BID 13 Days Qty: 26 0RF clindamycin HCl 300 mg capsule 300 mg PO TID 13 Days Qty: 39 0RF Continued atorvastatin [Lipitor] 40 MG tablet 40 mg PO HS Qty: 0 folic acid 1 mg Tablet 1 mg PO QDAY pyridostigmine bromide 60 mg tablet 60 mg PO Q6H Glucagon Emergency Kit (human) 1 mg recon soln 1 mg subcut Q20H PRN (Reason: hypoglycemia) aspirin 81 mg Capsule 81 mg PO QDAY acetaminophen [Tylenol] 325 mg Tablet 325 mg PO Q8H PRN (Reason: breaktrhough pain) ondansetron HCl 4 mg Tablet 4 mg PO Q6H PRN (Reason: NAUSEA OR VOMITNG) thiamine HCl (vitamin B1) 100 mg Tablet 100 mg PO QDAY magnesium hydroxide [Milk of Magnesia] 400 mg/5 mL Suspension 30 ml PO QDAY PRN (Reason: Constipation) ascorbic acid (vitamin C) 500 mg Tablet 500 mg PO BID bisacodyl [Dulcolax (bisacodyl)] 10 mg Suppository 10 mg VT Q72H PRN (Reason: Constipation) docusate sodium 250 mg Capsule 250 mg PO BID cholecalciferol (vitamin D3) [Vitamin D3] 25 mcg (1,000 unit) Tablet 50 mcg PO QDAY magnesium oxide 400 mg magnesium Tablet 400 mg PO HS duloxetine 30 mg capsule,delayed release(DR/EC) 60 mg PO HS tizanidine 4 mg tablet 6 mg PO QID Rx Instructions: Hold for SBP <100 or DBP <60 amlodipine 2.5 mg tablet 2.5 mg PO QDAY Rx Instructions: HOLD FOR SBP<100 OR DBP<50 tamsulosin 0.4 mg capsule 0.4 mg PO HS calcium acetate(phosphat bind) 667 mg capsule 667 mg PO TIDWM fenofibrate nanocrystallized 145 mg tablet 145 mg PO QDAY oxycodone-acetaminophen [Percocet] 10-325 mg tablet 1 tab PO Q6HR pregabalin [Lyrica] 200 mg capsule 200 mg PO TID oxycodone-acetaminophen [Percocet] 7.5-325 mg tablet 1 tab PO QID PRN (Reason: severe pain (scale score 7-10)) Rx Instructions: Hold for rr<12, o2<90%, rass<0 Fleet Enema 19-7 gram/118 mL enema 118 ml VT QDAY PRN (Reason: constipation) cranberry extract 425 mg capsule 425 mg PO QDAY Rx Instructions: administer with a meal No Action multivitamin Tablet 1 tab PO QDAY albuterol 90 mcg/actuation Aerosol 180 mcg INHALATION Q4H PRN (Reason: SOB) ropinirole 1 mg tablet 1 mg PO BID gabapentin 800 mg Tablet 800 mg PO TID amitriptyline 50 mg tablet 50 mg PO QDAY polyethylene glycol 3350 [HealthyLax] 17 gram Powder In Packet 17 g PO BID 30 Days Qty: 100 6RF Referrals: No Primary/Family,Physician [Primary Care Provider] - Patient/Caregiver Discharge Instructions Print Language: [place] Stand Alone Forms: [employer] Award Info., Patient Portal Info Letter Discharge Order Discharge Orders: Discharge (Routine); Ordered 08/18/24 Ordered By: Cole Hyde Quality Discharge Quality Measures VTE prophylaxis Attestestation Attestation I reviewed labs, imaging, EKG, home medications and prior available records. Face to face evaluation was performed by me. I have personally examined the patient and discussed assessment and plan with the IM team. I reviewed the resident note and agree with the plan with exceptions as below. Left face cellulitis Enlarged CBD CAD status post stenting Myasthenia gravis Chronic back pain Peripheral neuropathy Will discharge on p.o. Augmentin and clindamycin Follow-up cultures: Negative to date Resumed home aspirin and atorvastatin Resumed home pyridostigmine Resumed home Lyrica Time spent is 40 minutes. More than 50% of the time was spent on patient education and coordination of care.
[2024-08-18] MEDS: ASCORBIC ACID 250 MG TABLET 500 MG PO (08:00)
[2024-08-18] MEDS: ASPIRIN 81 MG CHEW PO (08:00)
[2024-08-18] MEDS: DOCUSATE SOD 250 MG CAPSULE PO (08:01)
[2024-08-18] MEDS: CALCIUM ACETATE 667 MG TABLET PO ×2 (08:01→11:21)
[2024-08-18] MEDS: FOLIC ACID 1 MG TABLET PO (08:01)
[2024-08-18] MEDS: cefTRIAXone 2 GM in SODIUM CHLORIDE 0.9% (Popper) 50 ML IV (08:11)
[2024-08-18] MEDS: FENOFIBRATE 145 MG TABLET (NON-FORMULARY) PO (08:12)
[2024-08-18] MEDS: VANCOMYCIN/NS 750 MG IVPB 750 MG/150 ML BAG 120 MG IV (08:22)
--- NOTE | 2024-08-18 16:44 | PC.NURSE ---
[facility]24 from 0900 to 1600.
== END 2024-08-18 13:11 | disposition skilled nursing facility (03) | DRG 603 ==
LOC: SERX 19:35 → SERHOLD 20:58 → S2NX 22:23
PROVIDERS: Student in an Organized Health Care Education/Training Program; Admitting Provider Internal Medicine; Emergency Provider Emergency Medicine; Visit Provider Internal Medicine
DX: L03.213 Periorbital cellulitis (principal); N39.0 Urinary tract infection, site not specified; T83.518A Infection and inflammatory reaction due to other urinary catheter, initial encounter; G82.20 Paraplegia, unspecified; L03.211 Cellulitis of face; E11.9 Type 2 diabetes mellitus without complications; E78.5 Hyperlipidemia, unspecified; F17.210 Nicotine dependence, cigarettes, uncomplicated; G70.00 Myasthenia gravis without (acute) exacerbation; G89.29 Other chronic pain; I10 Essential (primary) hypertension; I25.10 Atherosclerotic heart disease of native coronary artery without angina pectoris; Y84.6 Urinary catheterization as the cause of abnormal reaction of the patient, or of later complication, without mention of misadventure at the time of the procedure; N31.9 Neuromuscular dysfunction of bladder, unspecified; N40.0 Benign prostatic hyperplasia without lower urinary tract symptoms; Z79.82 Long term (current) use of aspirin; Z79.899 Other long term (current) drug therapy; Z95.5 Presence of coronary angioplasty implant and graft; Z87.440 Personal history of urinary (tract) infections; Z87.442 Personal history of urinary calculi
CPT/HCPCS: 36415; 70450; 70491; 71045; 71046; 71260; 74177; 76700; 80053; 80202; 81001; 82803; 83605; 83735; 84100; 84145; 84443; 84484; 85025; 85610; 85652; 85730; 86140; 87040; 87081; 87086; 87400; 87651; 87811; 93005; 93970; 96361; 96365; 99285; A4649; J0696; J1644; J2543; J3370; J3371; J3490; J7030; J7040; Q9967; A9270; J1836; J1920

== ENCOUNTER → 2024-10-14 | Outpatient (BNVA) | payer MEDICARE, MEDICAID, SELFPAY | END | disposition home or self-care (01) | PROVIDERS: PCP Hospitalist; Referring Provider Hospitalist; Visit Provider Urology | DX: N40.1 Benign prostatic hyperplasia with lower urinary tract symptoms (principal); N13.8 Other obstructive and reflux uropathy; R33.8 Other retention of urine; N31.9 Neuromuscular dysfunction of bladder, unspecified; Z87.442 Personal history of urinary calculi; G70.00 Myasthenia gravis without (acute) exacerbation; G82.21 Paraplegia, complete; E66.01 Morbid (severe) obesity due to excess calories; F17.210 Nicotine dependence, cigarettes, uncomplicated; I10 Essential (primary) hypertension; E78.00 Pure hypercholesterolemia, unspecified; I25.10 Atherosclerotic heart disease of native coronary artery without angina pectoris; I25.2 Old myocardial infarction; Z95.1 Presence of aortocoronary bypass graft | CPT/HCPCS: 99212; G0463 ==

== ENCOUNTER → 2024-10-19 | Outpatient (CLI) | payer MEDICARE, MEDICAID, SELFPAY ==
[2024-10-19 16:29] LABS: Collection Type, Urine Clean Catch
[2024-10-19 17:23] LABS: Amorphous Crystals,Urine Present (Absent); Bacteria,Urine 2+; Bilirubin,Urine Negative (Negative); Blood,Urine 2+ (Negative); Clarity,Urine Turbid (Clear/Hazy); Color,Urine Yellow (Lt Yel-Yel); Glucose, Urine Negative (Negative); Ketones,Urine Negative (Negative); Leukocyte Esterase,Urine Positive (Negative); Nitrite,Urine Negative (Negative); PH,Urine 5.5 (5.0-7.0); Protein,Urine Trace (Neg - Trace); RBC,Urine 31 /hpf (0-3); Specific Gravity,Urine 1.014 (1.001-1.035); Squamous Epithelial Cell,Urine 3 /hpf (0-5); Urobilinogen,Urine Negative mg/dL (0.0-1.0); WBC,Urine 212 /hpf (0-5)
[2024-10-19 17:27] LABS: Culture Indicated,Urine Yes
== END | disposition home or self-care (01) ==
LOC: SLDO 16:03
PROVIDERS: PCP Family Medicine; Referring Provider Family Medicine; Visit Provider Family Medicine
DX: Z01.89 Encounter for other specified special examinations (principal)
CPT/HCPCS: 81001; 87077; 87086; 87186

== ENCOUNTER 2024-10-20 09:34 | Emergency (ER) | payer MEDICARE, MEDICAID, SELFPAY ==
[2024-10-20] VITALS (57 sets, daily range): BP systolic 55–146; BP diastolic 47–96; PULSE 59–97; RESP 12–28; TEMP 37–38.7; O2SAT 90–100
--- NOTE | 2024-10-20 09:36 | PD.EDAMS ---
Altered Mental Status RME/HPI General Chief Complaint: Altered Mental Status Stated Complaint: HYPOTENSION Time Seen by Provider: 10/20/24 09:46 Arrival date/time: 10/20/24 09:34 Limitations: no limitations RME / HPI RME / HPI narrative: 69 year old male with history of CAD s/p PCI, hypertension, myasthenia gravis status post thymectomy, diabetes, paraplegia status post 2 spinal surgeries, peripheral neuropathy, BPH, neurogenic bladder with chronic indwelling woodward catheter, chronic pain presents to the ED BIBA from [facility] for altered mental status today. Per medics, [place] staff reported they noticed some confusion beginning at 8PM yesterday. This morning noted the confusion had not improved and appears lethargic. Evidently at baseline the patient is GCS of 15. EMS state on scene patient was GCS of 13, confused, and only able to answer name. Prehospital BS 131, hypotensive 74/40, HR 64, RR 14, O2 94% on room air. Patient is full code. Related Data Home Medications ?Medication ?Instructions ?Recorded ?Confirmed atorvastatin 40 mg tablet (Lipitor) 40 mg PO HS #0 tabs 02/21/17 10/20/24 folic acid 1 mg tablet 1 mg PO QDAY 07/08/17 10/20/24 pyridostigmine bromide 60 mg tablet 60 mg PO Q6H 08/24/18 10/20/24 amlodipine 2.5 mg tablet 2.5 mg PO QDAY 11/03/22 10/20/24 calcium acetate(phosphat bind) 667 667 mg PO TIDWM 11/03/22 10/20/24 mg capsule duloxetine 30 mg capsule,delayed 60 mg PO HS 11/03/22 10/20/24 release fenofibrate nanocrystallized 145 145 mg PO QDAY 11/03/22 10/20/24 mg tablet tamsulosin 0.4 mg capsule 0.4 mg PO HS 11/03/22 10/20/24 tizanidine 4 mg tablet 6 mg PO QID 11/03/22 10/20/24 acetaminophen 325 mg tablet 325 mg PO Q8H PRN breaktrhough pain 04/03/23 10/20/24 (Tylenol) ascorbic acid (vitamin C) 500 mg 500 mg PO BID 01/01/24 07/20/25 tablet aspirin 81 mg capsule 81 mg PO QDAY 04/03/23 10/20/24 cholecalciferol (vitamin D3) 25 50 mcg PO QDAY 04/03/23 10/20/24 mcg (1,000 unit) tablet (Vitamin D3) docusate sodium 250 mg capsule 250 mg PO BID 04/03/23 10/20/24 magnesium hydroxide 400 mg/5 mL 30 ml PO QDAY PRN Constipation 04/03/23 10/20/24 oral suspension (Milk of Magnesia) magnesium oxide 400 mg PO HS 04/03/23 10/20/24 ondansetron HCl 4 mg tablet 4 mg PO Q6H PRN NAUSEA OR VOMITNG 04/03/23 10/20/24 thiamine HCl (vitamin B1) 100 mg 100 mg PO QDAY 04/03/23 10/20/24 tablet oxycodone-acetaminophen 10 mg-325 1 tab PO Q6HR 08/15/24 10/20/24 mg tablet (Percocet) cranberry extract 425 mg capsule 425 mg PO QDAY 08/16/24 10/20/24 pregabalin 200 mg capsule (Lyrica) 200 mg PO TID 08/16/24 10/20/24 hydromorphone 2 mg tablet 2 mg PO Q12HR PRN pain 10/20/24 10/20/24 (Dilaudid) nortriptyline 10 mg capsule 20 mg PO HS 10/20/24 10/20/24 sulfamethoxazole 800 1 tab PO Q12H 10/20/24 10/20/24 mg-trimethoprim 160 mg tablet Allergies Allergy/AdvReac Type Severity Reaction Status Date / Time No Known Allergies Allergy Verified 10/14/24 10:49 Review of Systems Review of Systems ROS Unobtainable: unobtainable due to mental status Past Medical History Past Medical History NEUROLOGIC: Positive Neurological Disorders, Paralysis and Peripheral Neuropathy CARDIAC: Positive Myocardial Infarction, Coronary Artery Disease, Atherosclerotic Heart Disease, Peripheral Vascular Disease, Hypercholesterolemia, Cellulitis and Hypertension RESPIRATORY: Positive Sleep Apnea and Tobacco Use GASTROINTESTINAL: Positive Gastrointestinal Disorders and Obesity GENITOURINARY: Positive Genitourinary Disorders and Neurogenic Bladder MUSCULOSKELETAL: Positive Musculoskeletal Disorders, Myasthenia Gravis, Fibromyalgia and Fractures ENDOCRINE: Positive Endocrine Disorders HEMATOLOGIC: Positive Blood Disorders and Anemia PSYCHO/SOCIAL: Positive Depression and Anxiety OTHER HISTORY: Positive Hospitalization, Autoimmune Disease and Falls Family History FAMILY HISTORY: Positive Family Respiratory Disorders and Family Cardiac Disorders Surgical History SURGICAL: Positive Coronary Artery Bypass Graft, Coronary Stent, Endocrine Surgery and Thyroidectomy Social History SMOKING STATUS: Unknown if ever smoked SECOND HAND EXPOSURE: Yes SUBSTANCE USE: does not use ED Exam General Limitations: Present no limitations General appearance: Present alert and other (diaphoretic) Head Head exam: Present atraumatic, normocephalic and normal inspection Eye Eye exam: Present EOMI and other (pin point pupils ) ENT ENT exam: Present normal exam, normal oropharynx and mucous membranes moist Neck Neck exam: Present normal inspection, full ROM and trachea midline Chest Chest inspection: Present normal inspection and symmetric chest wall rise Respiratory Respiratory exam: Present normal lung sounds bilaterally Cardiovascular Cardiovascular exam: Present regular rate (at 65 on telemetry), normal rhythm and normal heart sounds Abdominal Exam Abdominal exam: Present soft and normal bowel sounds exam: Present other (Indwelling 3-wave folley catheter ) Extremities Exam Extremities exam: Present other (spastic movement of lower extremities, no sensation. ) Back Exam Back exam: Present normal inspection and full ROM Neurological Exam Neurological exam: Present alert, CN II-XII intact and other (no facial droop ) Psychiatric Psychiatric exam: Present normal affect and normal mood Skin Skin exam: Present warm, intact, normal color and diaphoresis Course Quality Measures Current suspected stage: septic shock (LA >4 and/or hypotension) IVF 30 ml/kg given for lactic acid >4 and/or hypotension: yes Vasopressors initiated: Yes Sepsis reassessment completed at (date): 10/20/24 Sepsis reassessment completed at (time): 11:10 Possible source: genitourinary Blood cultures ordered: completed in ED Antibiotic ordered: Yes Pertinent labs: 10/20/24 10/20/24 09:50 13:37 Lactic Acid 2.1 H mMol/L 0.9 mMol/L (0.4-2.0) (0.4-2.0) Procalcitonin 2.72 H ng/ml (0.0-0.49) sepsis Orders Category Date Time Status Perforator STAT Care 10/20/24 09:46 Completed Central Line Insertion Set Up NOW Care 10/20/24 09:51 Completed Continuous Pulse Oximetry STAT Care 10/20/24 09:46 Completed EKG (ED ONLY) *Do not use* NOW Care 10/20/24 09:42 Completed NPO STAT Care 10/20/24 09:46 Completed Strict Intake and Output Routine Care 10/20/24 09:46 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 Stat Cons 10/20/24 11:15 Active Transfer to another facility [Transfer/Discharge] Stat Discharge 10/20/24 20:[address] abdomen pelvis wo con Stat Exams 10/20/24 10:[address] head/brain wo con Stat Exams 10/20/24 09:53 Completed CXRP [XR chest 1V portable] Stat Exams 10/20/24 09:49 Completed EKG (ED Only) Stat Exams 10/20/24 09:42 Draft XR chest 1V portable Stat Exams 10/20/24 18:31 Completed Arterial Blood Gas Stat Lab 10/20/24 10:02 Completed B-Type Natriuretic Peptide Stat Lab 10/20/24 09:50 Completed BMP [Basic Metabolic Panel] Stat Lab 10/20/24 18:55 Completed BNP [B-Type Natriuretic Peptide] Stat Lab 10/20/24 18:55 Completed Blood Culture (Lab) Stat Lab 10/20/24 09:50 Received CBC Stat Lab 10/20/24 09:50 Completed Comprehensive Metabolic Panel Stat Lab 10/20/24 09:50 Completed Drug Screen,Urine Stat Lab 10/20/24 10:18 Completed LDH (Lactate Dehydrogenase) Stat Lab 10/20/24 09:50 Completed Lactate (Lactic Acid) Stat Lab 10/20/24 09:50 Completed Lactic Acid, 3 HR Stat Lab 10/20/24 13:37 Completed Lipase Stat Lab 10/20/24 09:50 Completed Magnesium Stat Lab 10/20/24 09:50 Completed Magnesium Stat Lab 10/20/24 18:55 Completed Partial Thromboplastin Time Stat Lab 10/20/24 09:50 Completed Phosphorous Stat Lab 10/20/24 09:50 Completed Procalcitonin Stat Lab 10/20/24 09:50 Completed Prothrombin Time with INR Stat Lab 10/20/24 09:50 Completed Troponin I Stat Lab 10/20/24 09:50 Completed Urinalysis Stat Lab 10/20/24 10:18 Completed Urine Culture Stat Lab 10/20/24 10:18 Received Acetaminophen Ivpb [Ofirmev Inj] Med 10/20/24 09:51 Discontinued 1,000 mg in 100 ml IV X1 Acetaminophen Ivpb [Ofirmev Inj] Med 10/20/24 18:08 Discontinued 1,000 mg in 100 ml IV X1 Doxycycline Inj [Vibramycin Inj] 100 mg Med 10/20/24 09:46 Discontinued Sodium Chloride 0.9% (Pop) [NS 0.9% mini bag] 100 ml IV X1 Ketorolac Inj [Toradol Inj] Med 10/20/24 17:09 Discontinued 15 mg IVP X1 ONE Magnesium Sulfate 2 GM Ivpb [Magnesium Sulfate Ivpb] Med 10/20/24 11:20 Discontinued 2 gm in 50 ml IV X1 NALOXONE INJ (Syringe) [Narcan Inj (Syringe)] Med 10/20/24 09:53 Discontinued 0.4 mg IV X1 ONE NALOXONE INJ (Syringe) [Narcan Inj (Syringe)] Med 10/20/24 09:54 Discontinued 0.4 mg IV X1 ONE Norepinephrine/D5W 8mg/250ml [Levophed in D5W 8mg/250ml Med 10/20/24 09:46 Discontinued ] 8 mg in 250 ml IV 0.05 mcg/kg/min Piper/Tazo 3.375 gm Premix [Zosyn] Med 10/20/24 09:46 Discontinued 3.375 gm in 50 ml IV X1 Sodium Chloride 0.9% 1000 ml [Ns] 1,000 ml Med 10/20/24 19:39 Discontinued IV 250 mls/hr Sodium Chloride 0.9% 1000 ml [Ns] 1,000 ml Med 10/20/24 09:46 Discontinued IV 999 mls/hr Sodium Chloride 0.9% 1000 ml [Ns] 1,000 ml Med 10/20/24 09:48 Discontinued IV 999 mls/hr Oxygen Delivery NOW RT 10/20/24 09:46 Completed Vital Signs Vital signs: Vital Signs Temperature 100.5 F H 10/20/24 09:40 Pulse Rate 64 10/20/24 09:40 Respiratory Rate 16 10/20/24 09:40 Blood Pressure 55/47 L 10/20/24 09:40 Pulse Oximetry (%) 97 10/20/24 09:40 Oxygen Delivery Method Nasal Cannula 10/20/24 09:40 Oxygen Flow Rate 6 10/20/24 09:40 Altered Mental Status MDM Narrative MDM Narrative:: I, Yolanda Frederick, kailee scribing for and in the presence of Dr. Saucedo. 0944: Initial blood pressure 55/47, repeat 60/40. I ordered 2L of NS in addition to the 1L of LR started by EMS. Rectal temperature 100.5F. Sepsis alert activated. 1015: After receiving 0.4mg Narcan, the patients mentation has improved. Now answering questions. Blood pressure 145/74. 1106: Daughter now at bedside. We reviewed all the results, analysis, and treatment plans. Patient denies any known renal problems although daughter does mention during his last admission 08/2024 patient was diagnosed with a kidney stone. Blood pressure 142/55, HR 75, saturating 95% on 3L while sleeping and 99% when awake. 1120: Blood pressure currently 116/70. At this time patient is receiving 0.03 mcg/kg/min of Levophed. 1700: Notified by RN the patients temperature is 100.8F. 1758: Patient is currently off Leveophed. Blood pressure 125/76. I spoke with transfer nurse at [facility] as noted below. 1800: Patient signed out to Dr. Khan pending transfer for urology services. Patient data External records reviewed:: [facility] previous records, EMS form and [facility] records (I reviewed pmhx and medication list from [facility]. It appears patient was started on Dilaudid 2mg 6 weeks ago and Percocet. ) Clinical information provided by:: patient and EMS Social determinants that could affect healthcare access:: housing ([place] resident ) Patient has the following chronic illnesses:: CAD s/p PCI, hypertension, myasthenia gravis status post thymectomy, diabetes, paraplegia status post 2 spinal surgeries, peripheral neuropathy, BPH, neurogenic bladder with chronic indwelling woodward catheter, chronic pain How is presenting disease/condition affected by chronic disease/condition?: exacerbated by Evaluation data The following diagnostics were reviewed and interpreted by me:: lab results, radiology exam(s) and EKG tracing(s) (09:44AM. Sinus bradycardia, rate 59, normal axis, no ectopy, Q-waves in lead III only, nonspecific ST abnormalities. ) Lab and/or radiology exams considered but not ordered:: None Interpretation Summary: Ordering Physician: Jostin Saucedo MD Date of Service: 10/20/24 Procedure(s): CT abdomen pelvis wo con Accession Number(s): [id number] cc: Rick Stern MD; Jostin Saucedo MD; Oleg Collazo MD~ Examination: CT abdomen and pelvis without contrast. Coronal 3-D reconstructions. Sagittal 2-D reconstructions. Date and time of exam:2024, 1033 hrs. Comparison August 15, 2024 Indications: Hypertension, sepsis, diagnosis urosepsis, history kidney stones CTDI: vol (mGy): 22.2 DLP: (mGycm): 1465 Technique: Axial images of the abdomen have been obtained, 3 mm slice thickness Intravenous contrast material has not been administered. Low dose protocols were performed. One or more of the following dose reduction techniques were used; automated exposure control, adjustment of the mA and/or KV according to patient size, use of iterative reconstruction technique. Findings: Prominent vascular congestion, enlarged cardiac contour with small right pleural effusion. Diffuse fatty infiltration throughout the liver, no focal liver or splenic lesions No gallstones. No pancreatic mass Bilateral subcentimeter renal calculi, 3.9 cm right renal cyst Mild to moderate left hydronephrosis secondary to 11 mm proximal left ureteral calculus KUB abdominal aortic calcification Normal appendix. No bowel obstruction. Marked thickening of urinary bladder wall up to 12 mm, no bladder calculi Transverse prostate dimension 5.1 cm Impression: Bilateral renal calculi Mild to moderate left hydronephrosis secondary to 11 mm proximal left ureteral calculus. Significant thickening of urinary bladder wall, consider cystitis Dictated By: Rick Stern MD Signed By: <Electronically signed by Rick Stern MD in OV> 10/20/24 1108 Ordering Physician: Jostin Saucedo MD Date of Service: 10/20/24 Procedure(s): CT head/brain wo con Accession Number(s): [id number] cc: Rick Stern MD; Jostin Saucedo MD; lOeg Collazo MD~ Examination: CT brain head without contrast. 2-D sagittal coronal reconstructions Date and time of exam:October 20, 2024, 1032 hrs. Indications: Onset hypotension altered mental status this morning, diagnosis urosepsis CTDI: vol (mGy):62 DLP: (mGycm):1330 Technique: Multiple CT axial sections of the brain have been obtained, 5 mm slice thickness. Contrast has not been administered. 2-D sagittal, coronal reconstructions have been obtained Low dose protocols were performed. One or more of the following dose reduction techniques were used; automated exposure control, adjustment of the mA and/or KV according to patient size, use of iterative reconstruction technique. Findings: No significant ventricular enlargement. Intra-axial or extra-axial hemorrhage density is not seen. No mass effect or midline shift Basal cisterns are not remarkable. Fourth ventricle is midline. Cranial vault intact. Impression: Negative for acute hemorrhage, mass effect or midline shift Dictated By: Rick Stern MD Signed By: <Electronically signed by Rick Stern MD in OV> 10/20/24 1110 Ordering Physician: Jostin Saucedo MD Date of Service: 10/20/24 Procedure(s): XR chest 1V portable Accession Number(s): [id number] cc: Rick Stern MD; Jostin Saucedo MD; Oleg Collazo MD~ Examination: AP chest single view Technique: AP portable supine chest single view Date and time: October 20, 2024, 1004 hrs. Comparison August 15, 2024. Indications: Sepsis alert today Findings: Mild enlargement cardiac contour. No lobar pneumonia. Median sternotomy wires and surgical clips. Orthopedic support rods thoracic spine No pulmonary edema Prominent osteopenia Impression: Negative for pneumonia Dictated By: Rick Stern MD Signed By: <Electronically signed by Rick Stern MD in OV> 10/20/24 1120 Medications / Prescriptions Medications or Prescriptions considered but not ordered:: None Medication administrations:: Medication Administration History Discontinued Medications Norepinephrine/Dextrose (Levophed In D5w 8mg/250ml) 8 mg in 250 mls @ 8.713 mls/hr IV .Q24H PRN; Protocol PRN Reason: PER PROTOCOL Stop: 11/19/24 09:45 Last Titration: 10/20/24 17:00 Dose: 0 mcg/kg/min, 0 mls/hr Documented By: Titration: 10/20/24 16:58 Dose: 0.01 mcg/kg/min, 1.743 mls/hr Documented By: Titration: 10/20/24 16:00 Dose: 0.03 mcg/kg/min, 5.228 mls/hr Documented By: Titration: 10/20/24 15:00 Dose: 0.03 mcg/kg/min, 5.228 mls/hr Documented By: Titration: 10/20/24 14:35 Dose: 0.03 mcg/kg/min, 5.228 mls/hr Documented By: Titration: 10/20/24 14:30 Dose: 0.03 mcg/kg/min, 5.228 mls/hr Documented By: Titration: 10/20/24 14:20 Dose: 0 mcg/kg/min, 0 mls/hr Documented By: Titration: 10/20/24 14:00 Dose: 0.03 mcg/kg/min, 5.228 mls/hr Documented By: Titration: 10/20/24 13:00 Dose: 0.03 mcg/kg/min, 5.228 mls/hr Documented By: Titration: 10/20/24 12:00 Dose: 0.03 mcg/kg/min, 5.228 mls/hr Documented By: Titration: 10/20/24 11:05 Dose: 0.03 mcg/kg/min, 5.228 mls/hr Documented By: Titration: 10/20/24 10:05 Dose: 0.05 mcg/kg/min, 8.713 mls/hr Documented By: Admin: 10/20/24 10:00 Dose: 0.05 mcg/kg/min, 8.713 mls/hr Documented By: EF Piperacillin/Tazobactam/Dextrose (Zosyn) 3.375 gm in 50 mls @ 100 mls/hr IV X1 ONE Stop: 10/20/24 10:15 Last Infusion: 10/20/24 10:36 Dose: Infused Documented By: Admin: 10/20/24 10:06 Dose: 100 mls/hr Documented By: EF Doxycycline Hyclate 100 mg/ (Sodium Chloride) 100 mls @ 100 mls/hr IV X1 ONE Stop: 10/20/24 10:45 Last Infusion: 10/20/24 11:55 Dose: Infused Documented By: Admin: 10/20/24 10:55 Dose: 100 mls/hr Documented By: EF Sodium Chloride (Ns) 1,000 mls @ 999 mls/hr IV .Q1H1M ONE Stop: 10/20/24 10:46 Last Infusion: 10/20/24 10:52 Dose: Infused Documented By: Admin: 10/20/24 09:51 Dose: 999 mls/hr Documented By: EF Sodium Chloride (Ns) 1,000 mls @ 999 mls/hr IV .Q1H1M ONE Stop: 10/20/24 10:48 Last Infusion: 10/20/24 11:09 Dose: Infused Documented By: Admin: 10/20/24 10:08 Dose: 999 mls/hr Documented By: EF Acetaminophen (Ofirmev Inj) 1,000 mg in 100 mls @ 250 mls/hr IV X1 ONE Stop: 10/20/24 10:14 Last Infusion: 10/20/24 10:27 Dose: Infused Documented By: Admin: 10/20/24 10:03 Dose: 250 mls/hr Documented By: EF Magnesium Sulfate (Magnesium Sulfate Ivpb) 2 gm in 50 mls @ 25 mls/hr IV X1 ONE Stop: 10/20/24 13:19 Last Infusion: 10/20/24 13:59 Dose: Infused Documented By: Admin: 10/20/24 11:59 Dose: 25 mls/hr Documented By: EF Acetaminophen (Ofirmev Inj) 1,000 mg in 100 mls @ 250 mls/hr IV X1 ONE Stop: 10/20/24 18:31 Last Infusion: 10/20/24 18:36 Dose: Infused Documented By: Admin: 10/20/24 18:12 Dose: 250 mls/hr Documented By: EF Sodium Chloride (Ns) 1,000 mls @ 250 mls/hr IV .Q4H ONE Stop: 10/20/24 23:38 Last Admin: 10/20/24 19:53 Dose: 250 mls/hr Documented By: JITENDRA Ketorolac Tromethamine (Ketorolac Inj 30 Mg/Ml Vial) 15 mg IVP X1 ONE Stop: 10/20/24 17:10 Last Admin: 10/20/24 17:14 Dose: 15 mg Documented By: EF Naloxone HCl (Naloxone Inj 1 Mg/Ml Syringe 2 Ml) 0.4 mg IV X1 ONE Stop: 10/20/24 09:54 Last Admin: 10/20/24 09:57 Dose: 0.4 mg Documented By: EF Naloxone HCl (Naloxone Inj 1 Mg/Ml Syringe 2 Ml) 0.4 mg IV X1 ONE Stop: 10/20/24 09:55 Last Admin: 10/20/24 10:11 Dose: Not Given Documented By: EF Non-Admin Reason: Cancelled by Provider See above Consultations Consultation(s) initiated? (list below): Yes Consultation #1 (Physician, Specialty, Details): I spoke with transfer nurse at [facility]. Discussed patients PMHx, HPI, ED course, exam findings, labs, and radiology results. State they will present care to their team. Time: 12:05 Consultation #2 (Physician, Specialty, Details): I again spoke with transfer nurse at [facility] in [place]. Time: 13:21 Consultation #3 (Physician, Specialty, Details): 1515: I spoke with transfer nurse at [facility]. States she has presented the case to urologist Dr. Rivera. States he has attempted to review the images but due to a system issue he was unable to view images. At this time pending urologist to call back to discuss the case. 1610: I spoke with transfer nurse at [facility]. Discussed patients PMHx, HPI, ED course, exam findings, labs, and radiology results. State they will present the case to their team. 1702: I spoke with transfer nurse at [facility]. States she has presented the case to their urologist Dr. Mart. States Dr. Mart advised the patient requires IR to place a percutaneous nephrostomy tube. However, IR does not accept patients to their own service and are refusing the transfer. 175: I spoke with transfer nurse at [facility] who reports urologist Dr. Rivera can accept the patient at [facility] as long as the patient is able to maintain his blood pressure without pressers. Diagnosis Differential diagnosis altered mental status: altered mental status, hypoglycemia, sepsis and other (UTI, opioid overdose ) Most likely diagnosis given after review of the tests above:: Sepsis Left ureteral stone UTI Admission Indicated Admission indicated?: not indicated Admission Request Was there a request for admission?: No Disposition Plan Disposition Plan: Transfer Critical Care Time Critical Care Time Critical Care Time: Yes Total Critical Care Time (min.): 45 Attestation: The high probability of sudden, clinically significant deterioration in the patient's condition required the highest level of my preparedness to intervene urgently. The services I provided to this patient were to treat and/or prevent clinically significant deterioration. Services included the following: chart data review, reviewing nursing notes and/or old charts, documentation time, qm consultant collaboration regarding findings and treatment options, medication orders and management, direct patient care, vital sign assessments and ordering, interpreting and reviewing diagnostic studies and lab tests. Aggregate critical care time includes only time during which I was engaged in work directly related to the patient's care, as described above, whether at bedside or elsewhere in the Emergency Department. It did not include time spent performing other reported procedures or the services of residents, students, nurses or physician assistants. Discharge Plan Plan Patient Disposition: [facility] Being Transferred to: [facility] Service Needed for Transfer: Urology Prescriptions/Referrals Prescriptions/Med Rec: No Action atorvastatin [Lipitor] 40 MG tablet 40 mg PO HS Qty: 0 folic acid 1 mg Tablet 1 mg PO QDAY pyridostigmine bromide 60 mg tablet 60 mg PO Q6H aspirin 81 mg Capsule 81 mg PO QDAY acetaminophen [Tylenol] 325 mg Tablet 325 mg PO Q8H PRN (Reason: breaktrhough pain) ondansetron HCl 4 mg Tablet 4 mg PO Q6H PRN (Reason: NAUSEA OR VOMITNG) thiamine HCl (vitamin B1) 100 mg Tablet 100 mg PO QDAY magnesium hydroxide [Milk of Magnesia] 400 mg/5 mL Suspension 30 ml PO QDAY PRN (Reason: Constipation) ascorbic acid (vitamin C) 500 mg Tablet 500 mg PO BID docusate sodium 250 mg Capsule 250 mg PO BID cholecalciferol (vitamin D3) [Vitamin D3] 25 mcg (1,000 unit) Tablet 50 mcg PO QDAY magnesium oxide 400 mg magnesium Tablet 400 mg PO HS duloxetine 30 mg capsule,delayed release(DR/EC) 60 mg PO HS tizanidine 4 mg tablet 6 mg PO QID Rx Instructions: Hold for SBP <100 or DBP <60 amlodipine 2.5 mg tablet 2.5 mg PO QDAY Rx Instructions: HOLD FOR SBP<100 OR DBP<50 tamsulosin 0.4 mg capsule 0.4 mg PO HS calcium acetate(phosphat bind) 667 mg capsule 667 mg PO TIDWM fenofibrate nanocrystallized 145 mg tablet 145 mg PO QDAY oxycodone-acetaminophen [Percocet] 10-325 mg tablet 1 tab PO Q6HR pregabalin [Lyrica] 200 mg capsule 200 mg PO TID cranberry extract 425 mg capsule 425 mg PO QDAY Rx Instructions: administer with a meal nortriptyline 10 mg capsule 20 mg PO HS sulfamethoxazole-trimethoprim 800-160 mg tablet 1 tab PO Q12H hydromorphone [Dilaudid] 2 mg tablet 2 mg PO Q12HR PRN (Reason: pain) Referrals: Oleg Collazo MD [Primary Care Provider] - In 1 week Problem List Clinical Impression: Sepsis, UTI (urinary tract infection), Left ureteral stone Patient/Caregiver Discharge Instructions Print Language: Greek Stand Alone Forms: Tejal Award Info., Patient Portal Info Letter
--- NOTE | 2024-10-20 09:42 | EKG_ITS ---
[facility] Test Date: 2024-10-20 Pat Name: ALBERTO BENTLEY Department: Room: - Gender: Male [employer] Hand: : 1955 Requested By: ED Temporary Provider Order Number: [id number] Reading MD: ED Temporary Provider Measurements Intervals [place] Rate: 59 P: 40 [place]: 195 QRS: 50 QRSD: 99 T: 97 QT: 418 QTc: 415 Interpretive Statements SINUS BRADYCARDIA NONSPECIFIC T-WAVE ABNORMALITY Compared to ECG 08/15/2024 15:18:28 Sinus rhythm no longer present T-wave abnormality still present /store/S0/[id number].pdf
--- NOTE | 2024-10-20 09:49 | XR_ITS ---
Examination: AP chest single view Technique: AP portable supine chest single view Date and time: October 20, 2024, 1004 hrs. Comparison August 15, 2024. Indications: Sepsis alert today Findings: Mild enlargement cardiac contour. No lobar pneumonia. Median sternotomy wires and surgical clips. Orthopedic support rods thoracic spine No pulmonary edema Prominent osteopenia Impression: Negative for pneumonia
[2024-10-20] MEDS: SODIUM CHLORIDE 0.9% 1000 ML 1,000 ML 999 ML IV ×2 (09:51→10:08)
--- NOTE | 2024-10-20 09:53 | XR_ITS ---
Examination: CT brain head without contrast. 2-D sagittal coronal reconstructions Date and time of exam:October 20, 2024, 1032 hrs. Indications: Onset hypotension altered mental status this morning, diagnosis urosepsis CTDI: vol (mGy):62 DLP: (mGycm):1330 Technique: Multiple CT axial sections of the brain have been obtained, 5 mm slice thickness. Contrast has not been administered. 2-D sagittal, coronal reconstructions have been obtained Low dose protocols were performed. One or more of the following dose reduction techniques were used; automated exposure control, adjustment of the mA and/or KV according to patient size, use of iterative reconstruction technique. Findings: No significant ventricular enlargement. Intra-axial or extra-axial hemorrhage density is not seen. No mass effect or midline shift Basal cisterns are not remarkable. Fourth ventricle is midline. Cranial vault intact. Impression: Negative for acute hemorrhage, mass effect or midline shift
[2024-10-20] MEDS: NALOXONE INJ 1 MG/ML SYRINGE 2 ML 0.4 MG IV (09:57)
[2024-10-20] MEDS: Norepinephrine/D5W 8mg/250ml 8 MG/250 ML BAG 8.713 MG IV (10:00)
--- NOTE | 2024-10-20 10:00 | XR_ITS ---
Examination: CT abdomen and pelvis without contrast. Coronal 3-D reconstructions. Sagittal 2-D reconstructions. Date and time of exam:2024, 1034 hrs. Comparison August 15, 2024 Indications: Hypertension, sepsis, diagnosis urosepsis, history kidney stones CTDI: vol (mGy): 22.2 DLP: (mGycm): 1465 Technique: Axial images of the abdomen have been obtained, 3 mm slice thickness Intravenous contrast material has not been administered. Low dose protocols were performed. One or more of the following dose reduction techniques were used; automated exposure control, adjustment of the mA and/or KV according to patient size, use of iterative reconstruction technique. Findings: Prominent vascular congestion, enlarged cardiac contour with small right pleural effusion. Diffuse fatty infiltration throughout the liver, no focal liver or splenic lesions No gallstones. No pancreatic mass Bilateral subcentimeter renal calculi, 3.9 cm right renal cyst Mild to moderate left hydronephrosis secondary to 11 mm proximal left ureteral calculus KUB abdominal aortic calcification Normal appendix. No bowel obstruction. Marked thickening of urinary bladder wall up to 12 mm, no bladder calculi Transverse prostate dimension 5.1 cm Impression: Bilateral renal calculi Mild to moderate left hydronephrosis secondary to 11 mm proximal left ureteral calculus. Significant thickening of urinary bladder wall, consider cystitis
[2024-10-20] MEDS: ACETAMINOPHEN IVPB 1,000 MG/100 ML VIAL 250 MG IV ×2 (10:03→18:12)
[2024-10-20] MEDS: PIPER/TAZO 3.375 GM PREMIX 3.375 GM/50 ML BAG IV (10:06)
[2024-10-20 10:07] LABS: Lactate (Lactic Acid) 2.1 mMol/L (0.4-2.0)
[2024-10-20 10:08] LABS: Basophils # (Auto) 0.0 Thou/mm3 (0.0-0.2); Basophils % (Auto) 0 % (0-2.5); Eosinophils # (Auto) 0.2 Thou/mm3 (0.0-0.5); Eosinophils % (Auto) 1 % (0-10); Hematocrit 39.2 % (41.0-53.0); Hemoglobin 12.4 g/dL (13.5-16.0); Immature Granulocytes Auto 0.09 Thou/mm3 (0.00-0.00); Lymphocytes # (Auto) 0.9 Thou/mm3 (1.0-4.8); Lymphocytes % (Auto) 6 % (10-50); Mean Corpuscular HGB Conc 31.6 g/dl (31.0-37.0); Mean Corpuscular Hemoglobin 24.8 pg (25.0-35.0); Mean Corpuscular Volume 79 fL (80-100); Monocytes # (Auto) 0.6 Thou/mm3 (0.0-0.8); Monocytes % (Auto) 4 % (0-12); Neutrophils # (Auto) 12.5 Thou/mm3 (1.8-7.7); Neutrophils % (Auto) 88 % (37-80); Nucleated Red Blood Cell # 0.00 Thou/mm3 (0.00-0.00); Nucleated Red Blood Cell % 0 /100 WBC (0); Platelet Count 210 Thou/mm3 (140-440); RDW Standard Deviation 48.1 fL (35.1-43.9); Red Blood Count 4.99 Miln/mm3 (4.50-5.90); White Blood Count 14.2 Thou/mm3 (3.8-10.6)
[2024-10-20 10:09] LABS: Base Excess -2 (-3-3); HCO3 25 mEq/L (20-26); Inspired O2, VO2 Liters 2 L/min; Inspired Oxygen, FIO2 21 %; O2 Saturation 89 % (91-98); PCO2 50 mmHg (32.0-48.0); PO2 67 mmHg (83-108); pH, Arterial 7.30 (7.35-7.45)
[2024-10-20 10:14] LABS: Allen Test Not Performed; Puncture Site Right Radial
--- NOTE | 2024-10-20 10:18 | PC.NURSE ---
patient taken to ct
[2024-10-20 10:37] LABS: Collection Type, Urine Clean Catch
[2024-10-20 10:38] LABS: INR 1.2 (0.9-1.3); Partial Thromboplastin Time 33.8 Seconds (22.0-36.0); Prothrombin Time 13.0 Seconds (9.0-12.2)
[2024-10-20 10:47] LABS: B-Type Natriuretic Peptide 55 pg/mL (0-100)
[2024-10-20 10:55] LABS: Alanine Aminotransferase 11 U/L (10-49); Albumin, Serum 3.4 gm/dL (3.4-4.8); Albumin/Globulin Ratio 1.4 (1.2-2.2); Alkaline Phosphatase 54 U/L (46-116); Anion Gap 9 (7-16); Aspartate Amino Transferase 22 U/L (0-34); BUN/Creatinine Ratio 11 Ratio (12-20); Bilirubin,Total 0.5 mg/dL (0.3-1.2); Blood Urea Nitrogen 32 mg/dL (9-23); Calcium 9.1 mg/dL (8.3-10.6); Calcium (Corrected) 9.6 mg/dL (8.5-10.1); Carbon Dioxide 26.0 mMol/L (20.0-31.0); Chloride 106 mMol/L (98-107); Creatinine (Component) 3.0 mg/dL (0.6-1.3); Globulin 2.4 gm/dL (2.3-3.5); Glucose 144 mg/dL (74-106); LDH (Lactate Dehydrogenase) 184 U/L (120-246); Lipase 24 U/L (12-53); Magnesium 1.4 mg/dL (1.6-2.6); Osmolality,Calculated 291 (275-295); Phosphorous 4.3 mg/dL (2.4-5.1); Potassium 4.2 mMol/L (3.4-5.1); Procalcitonin 2.72 ng/ml (0.0-0.49); Sodium 141 mMol/L (136-145); Total Protein 5.8 gm/dL (5.7-8.2); Troponin I < 0.020 ng/mL (0.0-0.045); eGFR 22 See Note
[2024-10-20] MEDS: DOXYCYCLINE INJ 100 MG in SODIUM CHLORIDE 0.9% (POP) 100 ML IV (10:55)
[2024-10-20 11:00] LABS: Amphetamine/Methamp Scrn,U Negative (Negative); Barbiturate Screen,Urine Negative (Negative); Benzodiazepines Screen,Urine Negative (Negative); Benzoylecgonine Screen, Ur Negative (Negative); Fentanyl Screen,Urine Negative (Negative); Opiate Screen,Urine Positive (Negative); THC Screen,Urine Negative (Negative)
[2024-10-20 11:11] LABS: Amorphous Crystals,Urine Present (Absent); Bacteria,Urine 3+; Bilirubin,Urine Negative (Negative); Blood,Urine 2+ (Negative); Color,Urine Yellow (Lt Yel-Yel); Glucose, Urine Negative (Negative); Ketones,Urine Negative (Negative); Leukocyte Esterase,Urine Positive (Negative); Nitrite,Urine Negative (Negative); PH,Urine 6.5 (5.0-7.0); Protein,Urine 2+ (Neg - Trace); RBC,Urine 86 /hpf (0-3); Specific Gravity,Urine 1.016 (1.001-1.035); Squamous Epithelial Cell,Urine 48 /hpf (0-5); Transitional Epi Cells,Urine 2 /hpf (0-5); Urobilinogen,Urine Negative mg/dL (0.0-1.0); WBC,Urine 1193 /hpf (0-5)
[2024-10-20 11:12] LABS: Clarity,Urine Turbid (Clear/Hazy)
--- NOTE | 2024-10-20 11:35 | PC.CC ---
Addendum entered by Chrissie Fitzgerald RN 10/20/24 19:29: Passdown and transfer packet w/ CD given to SHAMEAK Corona. Addendum entered by Chrissie Fitzgerald RN 10/20/24 19:04: received call from Mariella vasquez [facility], she stated she reached out to her Director Of Dance as Dr. Saucedo requested, She is still waiting for a response. She clarified, case is still open. Addendum entered by Chrissie Fitzgerald RN 10/20/24 18:45: received call from Laura TEMPLE, case is now being reviewed by Urologist in [place]. Per SHAMEKA Diaz pt's BP continues to hold w/o Levophed. Will pass down to ED Charge Cj to continue to f/u. Addendum entered by Chrissie Fitzgerald RN 10/20/24 18:27: In between calls, I sent clinicals to [facility], spoke to Laura and she stated to reach out her radiology dept for the [facility]. I called and spoke to Polly in the Radiology dept, she stated she wasn't sure ow to send me the [facility] link but will call me back. I call Laura back and she stated she has a call out to the urologist and is waiting for his response. Addendum entered by Chrissie Fitzgerald RN 10/20/24 18:06: 1750: received call from Laura YARBROUGH, Dr. Rivera is officially declining this case d/t capacity. this case has been escalated admin for the declination. She stated [place] is @ capacity in the ICU but may have a couple of discharges after change of shift. She stated that if patient can downgrade to Tele, she can take the patient to [place]. Informed her Levophed has been stopped. Clarified w/ Dr. Saucedo, current BP is 125/76 w/o the Levophed. Dr. Saucedo stated, pt can go as Tele. I called Laura back to inform her of change. She will call me back. 1700: Mariella GAYLE called, she informed Dr. Saucedo and I that Urology is stating this is an IR case not urology. IR can only see patients as outpatient and can not admit. Per Dr. Saucedo, this case should be escalated, Mariella stated she has reached out to her split and drum room supervisor about this case. [facility] has declined pt. Addendum entered by Chrissie Fitzgerald RN 10/20/24 15:52: Called [facility], spoke to Mariella, transfer request initiated. had Dr. Saucedo on the line but he had to go d/t an emergency. I will call Mariella back when Dr. Saucedo is available. Addendum entered by Chrissie Fitzgerald RN 10/20/24 15:33: received call from Laura, Dr. rivera requesting another way to view imaging. Informed Laura that imaging was sent via [facility] and can be sent through [facility]. She stated the does not have access to those and doesn't believe Dr. Rivera has access either. She will call MD so that a peer to peer can be done. Send clinicals and imaging to [facility] at this time. Addendum entered by Chrissie Fitzgerald RN 10/20/24 14:45: 1438: received call from Mark, Levophed restarted. Addendum entered by Chrissie Fitzgerald RN 10/20/24 14:24: 1417: Emily called back and stated they will stop the Levophed and monitor the patient. 1415: Called Charge Emily to inform her of ICU bed capacity. She stated she will speak to the MD to discuss possibility of weaning off Levophed. 1344: Received call from [facility], she stated that they are declining at this time d/t ICU capacity. She stated she will leave case open in case ICU bed is avail. 1315: received a call from [facility] w/ [facility], requested to speak to the MD, call initiated. Dr. Saucedo informed [facility] that pt is on a Levophed drip and will need an ICU bed. [facility] stated she will review and call back. Addendum entered by Chrissie Fitzgerald RN 10/20/24 12:10: called and spoke to Laura at [facility], she stated she is in the process of confirming if patient has been seen in [place] previously and once she confirms, she will push to urology. Addendum entered by Chrissie Fitzgerald RN 10/20/24 11:42: called and spoke to Azul Stern, transfer request initiated. A nurse will call back once clinicals received and reviewed. Original Note: received call and order for a transfer request for Urology w/ poss critical care. Called [facility] oncall. Clinicals and imaging sent to [facility] and [facility]. Spoke to Laura oliver/ [facility], she stated she has not received clinicals yet but transfer request initiated. She will call back once clinicals are received and reviewed.
[2024-10-20] MEDS: Magnesium Sulfate 2 GM Ivpb 2 GM/50 ML BAG IV (11:59)
[2024-10-20 13:05] LABS: Reflex Lactate? Y
[2024-10-20 13:40] LABS: Lactic Acid, 3 HR 0.9 mMol/L (0.4-2.0)
[2024-10-20] MEDS: KETOROLAC INJ 30 MG/ML VIAL 15 MG IVP (17:14)
--- NOTE | 2024-10-20 18:31 | XR_ITS ---
Examination: AP chest single view Technique one AP portable semiupright chest single view Date and time: October 20, 2024, 1841 hours Comparison October 20, 2024 1004 hours INDICATION: Shortness of breath today. FINDINGS: Mild prominence left ventricle Mild vascular congestion. No lobar pneumonia or pulmonary edema IMPRESSION: No lobar pneumonia or pulmonary edema
--- NOTE | 2024-10-20 18:32 | PD.EDADDENDU ---
Emergency Room Addendum <Daphne Vela - Last Filed: 10/20/24 21:07> Addendum Narrative: I took over the care from previous shift physician, Dr. Saucedo, at 6 PM on 10/20/24. See previous notes for complete H & P and ED course. I reviewed all diagnostic test results. My interpretation of the repeat chest x-ray is NAD. Diagnoses include: left ureteral stone, UTI, sepsis. Treatment here from me included Tylenol. I discussed the case with Dr. Pollack (urologist) and Dr. Espino (ED physician) from [facility]. About the presentation and exam and diagnostics and treatments here. And need of further care in the hospital there. Will accept the patient. J Luis Khan MD <J Luis Khan MD - Last Filed: 10/20/24 23:14> Addendum Narrative: I took over the care from previous shift physician, Dr. Saucedo, at 6 PM on 10/20/24. See previous notes for complete H & P and ED course. Diagnoses include: Ureteral stone, UTI, sepsis. I discussed the case with Dr. Pollack (Urology) and Dr. Espino (ED attending) from [facility]. About the presentation and exam and diagnostics and treatments here. And need of further care in the hospital there. Will accept the patient. During my watch, the patient remained stable. J Luis Khan MD
--- NOTE | 2024-10-20 19:17 | PC.NURSE ---
Pt repositioned to his right side and dirty linen removed. Pt is in a position of comfort
[2024-10-20 19:18] LABS: Anion Gap 8 (7-16); BUN/Creatinine Ratio 10 Ratio (12-20); Blood Urea Nitrogen 26 mg/dL (9-23); Calcium 9.3 mg/dL (8.3-10.6); Carbon Dioxide 23.1 mMol/L (20.0-31.0); Chloride 110 mMol/L (98-107); Creatinine (Component) 2.6 mg/dL (0.6-1.3); Glucose 123 mg/dL (74-106); Magnesium 2.1 mg/dL (1.6-2.6); Osmolality,Calculated 286 (275-295); Potassium 4.7 mMol/L (3.4-5.1); Sodium 141 mMol/L (136-145); eGFR 26 See Note
[2024-10-20 19:22] LABS: B-Type Natriuretic Peptide 123 pg/mL (0-100)
[2024-10-20] MEDS: SODIUM CHLORIDE 0.9% 1000 ML 1,000 ML 250 ML IV (19:53)
--- NOTE | 2024-10-20 19:56 | PC.NURSE ---
[facility] CALLED AND TALKED TO DR. BARCLAY. INFORMED DR. BARCLAY THAT HE DOES NOT NEED TRANSFER. ONLY NEED IR.
--- NOTE | 2024-10-20 19:58 | PC.NURSE ---
GABRIELLA GUALLPA CALLED , UROLOGY WILL CALL BACK.
--- NOTE | 2024-10-20 20:02 | PC.NURSE ---
THIS PT IS ACCEPTED TO [facility] BY DR. HANDLEY FROM UROLOGY AND DR. ARCE THE ER PROVIDER. THIS IS A ER:ER TRANSFER AND NUMBER FOR REPORT IS [phone]. TASHI WAS THE FACILITY REP I SPOKE WITH FOR ACCEPTING INFORMATION.
== END 2024-10-20 21:39 | disposition short-term general hospital (02) ==
PROVIDERS: Emergency Medicine; Emergency Provider Emergency Medicine; PCP Family Medicine
DX: A41.9 Sepsis, unspecified organism (principal); N13.2 Hydronephrosis with renal and ureteral calculous obstruction; R94.31 Abnormal electrocardiogram [ECG] [EKG]; N32.89 Other specified disorders of bladder
CPT/HCPCS: 36415; 36600; 70450; 71045; 74176; 80048; 80053; 80307; 81001; 82803; 83605; 83615; 83690; 83735; 83880; 84100; 84145; 84484; 85025; 85610; 85730; 87040; 87077; 87086; 87186; 93005; 99284; J0131; J1885; J2312; J2543; J3475; J3490; J7030

== ENCOUNTER → 2024-11-15 | Outpatient (CLI) | payer MEDICARE, MEDICAID, SELFPAY ==
[2024-11-15 15:38] LABS: Collection Type, Urine Clean Catch
[2024-11-15 16:58] LABS: Amorphous Crystals,Urine Present (Absent); Bacteria,Urine 1+; Bilirubin,Urine Negative (Negative); Blood,Urine Negative (Negative); Clarity,Urine Turbid (Clear/Hazy); Color,Urine Lt-Yellow (Lt Yel-Yel); Glucose, Urine Negative (Negative); Ketones,Urine Negative (Negative); Leukocyte Esterase,Urine Positive (Negative); Nitrite,Urine Positive (Negative); PH,Urine 8.0 (5.0-7.0); Protein,Urine Negative (Neg - Trace); RBC,Urine 9 /hpf (0-3); Specific Gravity,Urine 1.016 (1.001-1.035); Squamous Epithelial Cell,Urine 5 /hpf (0-5); Urobilinogen,Urine Negative mg/dL (0.0-1.0); WBC,Urine 33 /hpf (0-5)
[2024-11-15 17:59] LABS: Albumin, Serum 3.9 gm/dL (3.4-4.8); Anion Gap 10 (7-16); BUN/Creatinine Ratio 23 Ratio (12-20); Blood Urea Nitrogen 23 mg/dL (9-23); Calcium 9.2 mg/dL (8.3-10.6); Calcium (Corrected) 9.3 mg/dL (8.5-10.1); Carbon Dioxide 26.2 mMol/L (20.0-31.0); Chloride 106 mMol/L (98-107); Creatinine (Component) 1.0 mg/dL (0.6-1.3); Glucose 96 mg/dL (74-106); Osmolality,Calculated 286 (275-295); Phosphorous 2.3 mg/dL (2.4-5.1); Potassium 5.3 mMol/L (3.4-5.1); Sodium 142 mMol/L (136-145); Uric Acid 3.5 mg/dL (3.7-9.2); eGFR > 60 See Note
[2024-11-15 18:07] LABS: Vitamin D 25 Hydroxy Total 29.4 ng/mL (7.3-40.2)
== END | disposition home or self-care (01) ==
LOC: SLDO 15:22
PROVIDERS: Referring Provider Family Medicine; Visit Provider Family Medicine
DX: R33.8 Other retention of urine (principal); M62.81 Muscle weakness (generalized)
CPT/HCPCS: 36415; 80069; 81001; 82306; 84550

== ENCOUNTER → 2024-12-06 | Outpatient (BNVA) | payer MEDICARE, MEDICAID, SELFPAY | END | disposition home or self-care (01) | PROVIDERS: PCP Family Medicine; Referring Provider Internal Medicine; Visit Provider Urology | DX: N31.9 Neuromuscular dysfunction of bladder, unspecified (principal); Z87.442 Personal history of urinary calculi; N20.1 Calculus of ureter; I12.9 Hypertensive chronic kidney disease with stage 1 through stage 4 chronic kidney disease, or unspecified chronic kidney disease; E11.22 Type 2 diabetes mellitus with diabetic chronic kidney disease; N18.9 Chronic kidney disease, unspecified; E66.01 Morbid (severe) obesity due to excess calories; Z68.31 Body mass index [BMI] 31.0-31.9, adult; F17.210 Nicotine dependence, cigarettes, uncomplicated; Z71.6 Tobacco abuse counseling; Z99.3 Dependence on wheelchair; G82.21 Paraplegia, complete; J44.9 Chronic obstructive pulmonary disease, unspecified; I25.10 Atherosclerotic heart disease of native coronary artery without angina pectoris; Z95.1 Presence of aortocoronary bypass graft; G70.00 Myasthenia gravis without (acute) exacerbation; E78.00 Pure hypercholesterolemia, unspecified | CPT/HCPCS: 99212; G0463 ==

== ENCOUNTER 2025-01-15 08:25 | Day surgery (SDC) | payer MEDICARE, MEDICAID, SELFPAY ==
[2025-01-14 14:46] VITALS: BMI 31.2
--- NOTE | 2025-01-14 15:27 | SUR.PREOP ---
[facility] 0900 tomorrow for surgery. Keep him NPO after MN. Pt to take HTN meds give a sip of water.
[2025-01-14 15:38] LABS: Alanine Aminotransferase 16 U/L (10-49); Albumin, Serum 4.2 gm/dL (3.4-4.8); Albumin/Globulin Ratio 1.8 (1.2-2.2); Alkaline Phosphatase 96 U/L (46-116); Anion Gap 8 (7-16); Aspartate Amino Transferase 26 U/L (0-34); BUN/Creatinine Ratio 12 Ratio (12-20); Bilirubin,Total 0.2 mg/dL (0.3-1.2); Blood Urea Nitrogen 17 mg/dL (9-23); Calcium 9.3 mg/dL (8.3-10.6); Calcium (Corrected) 9.3 mg/dL (8.5-10.1); Carbon Dioxide 29.3 mMol/L (20.0-31.0); Chloride 107 mMol/L (98-107); Creatinine (Component) 1.4 mg/dL (0.6-1.3); Estimated Creatinine Clearance 49.6 mL/min (>60); Globulin 2.3 gm/dL (2.3-3.5); Glucose 111 mg/dL (74-106); Osmolality,Calculated 289 (275-295); Potassium 4.6 mMol/L (3.4-5.1); Sodium 144 mMol/L (136-145); Total Protein 6.5 gm/dL (5.7-8.2); eGFR 55 See Note
[2025-01-15] VITALS (7 sets, daily range): BP systolic 110–172; BP diastolic 57–89; PULSE 89–122; RESP 13–20; TEMP 36.4–37.1; O2SAT 95–97; BMI 32.4
--- NOTE | 2025-01-15 09:20 | CHAP ---
Visited with patient and prayed concerning his upcoming procedure.
[2025-01-15] MEDS: RINGERS LACTATED 1000 ML 1,000 ML 20 ML IV (09:43)
[2025-01-15] MEDS: VANCOMYCIN/NS 1 GM IVPB 200 ML IV (09:43)
--- NOTE | 2025-01-15 11:00 | XR_ITS ---
EXAMINATION: Retrograde pyelogram left with without KUB 8 spot fluoroscopic abdomen films Fluoroscopy Date and time: 415, 2024, 1447 hours INDICATIONS: History flank pain urosepsis, kidney stones, left hydronephrosis 11 mm proximal left ureteral calculus on CT stone study October 20, 2024, ureteral stone manipulation and stent placement today TECHNIQUE AND FINDINGS: 8. Spot fluoroscopic films of the abdomen Percutaneous nephrostomy tube partial visualization nondilated left renal collecting system Left ureteral stent satisfactory position Fluoroscopy 29 seconds radiation dose 9.37 mGy IMPRESSION: Retrograde pyelogram as above
--- NOTE | 2025-01-15 15:03 | SUR.PHASEI ---
1507 patient meets discharge criteria from recovery, awake and alert, on oxygen 3L via nasal cannula, bretahing unlabored, vital signs stable, denies pain and nausea, urinary catheter 16F in place with leg secure; draining to gravity, report received from Dr. Mcintosh/Rick YANES and Rudi MYLES
--- NOTE | 2025-01-15 15:09 | PD.SUROPNT ---
Date of Procedure 01/15/25 Surgeon Adren Handley MD Surgical Staff Operation Date: 01/15/25 11:15 Case Staff Anesthesiologist: Jostin Mcintosh
--- NOTE | 2025-01-15 16:10 | PD.SUROPNT ---
Date of Procedure 01/15/25 Findings BPH with obstructive prostate gland tortuous and elongated prostatic urethra large median bar trabeculated bladder, J hooking of ureteral orifices, hydronephrotic left kidney with a 1 cm stone proximal ureter Pathology / specimen None Estimated Blood Loss 1.0 Surgeon Arden Handley MD Surgical Staff Operation Date: 01/15/25 11:15 Case Staff Anesthesiologist: Jostin Mcintosh
--- NOTE | 2025-01-15 16:13 | SUR.PHASEII ---
1613 Patient meets discharge criteria from recovery, awake and alert, breathing unlabored, vital signs stable, denies pain and nausea, urinary catheter in place with leg secure, patient dressed by his caregiver, discharge instructions given to patient and patients caregiver, caregiver signed discharge instructions. Patient given all his belongings prior to discharge, transported via his personal wheelchair and left in a private vehicle.
--- NOTE | 2025-01-16 10:22 | PD.SUROPNT ---
Surgeon Arden Handley MD Surgical Staff Operation Date: 01/15/25 11:15 Case Staff Anesthesiologist: Jostin Mcintosh
--- NOTE | 2025-01-16 11:03 | PD.SUROPNT ---
Date of Procedure 01/16/25 Pre Op Diagnosis 9 mm to 1 cm stone in the proximal ureter left side with the left hydronephrosis s/p placement of left percutaneous nephrostomy, neurogenic bladder as a result of myasthenia gravis patient is catheter dependent High-grade prostatic obstruction with elongation and tortuosity of the prostatic urethra with a high median bar and bladder stone Post Op Diagnosis Same Procedure Cystoscopic examination laser stone fragmentation in the bladder and removal of the stone fragments left retrograde pyelogram and placement of left ureteral stent removal of the nephrostomy tube Findings Neurogenic bladder with a lot of catheter reaction, high-grade obstruction left side with 9 mm to 1 cm stone proximal ureter s/p placement of percutaneous nephrostomy obstructive prostate gland with the tortuosity and elongation of prostatic urethra with a high median bar, 1 cm stone in the bladder Procedure Description Indication for procedure this is a 69-year-old gentleman he has multiple medical problems he had obstructive stone left side he had placement of percutaneous nephrostomy left side in [place]. Subsequently he was seen by me in urology office. Patient was very uncomfortable with the nephrostomy tube. I explained to him about the procedure procedure and complications were discussed with patient in great detail informed consent is obtained Patient was brought to the operating room in a satisfactory condition after appropriate premedication was put on the operating table in a spine position general anesthesia was given uneventfully parts were prepped and draped in usual sterile fashion. He was appropriately identified by surgeon and operating room staff site scope and indication of the procedure were reconfirmed with the patient. At this time patient received perioperative antibiotics. 20 mg of Lasix IV was administered for prevention of pyelocalyceal infectious complications 21 cystoscope was used to the cystourethroscopy this revealed no stricture of the anterior urethra there was obstructive prostate gland with tortuosity and elongation of prostatic urethra with a high median bar. Bladder examination revealed stone in the bladder there was coarse bladder trabeculations and it was difficult to visualize the ureteral orifices. With the laser fiber I was able to fragment the stone in the bladder into multiple pieces and were evacuated. Next I was able to identify the orifice on the left side he has a J hooking of both ureteral orifice ease. I passed the safety wire retrograde pyelogram was performed he had a hydronephrosis on the left side. At this time I decided to put a stent 26 cm long 6 [place] stent was placed in a retrograde fashion over the safety wire. Next nephrostomy tube the left side was removed. This was done under fluoroscopic examination. 16. [place] catheter was inserted patient after having tolerated the procedure well was sent to the recovery room in a satisfactory condition to be followed in urology office for a definitive procedure which will be scheduled later Anesthesia GETA Pathology / specimen None Estimated Blood Loss 2.0 Condition Stable Disposition PACU Surgeon Arden Handley MD Surgical Staff Operation Date: 01/15/25 11:15 Case Staff Anesthesiologist: Jostin Mcintosh
== END 2025-01-15 16:13 | disposition skilled nursing facility (03) ==
PROVIDERS: Anesthesiology; PCP Family Medicine; Referring Provider Urology; Visit Provider Urology
PROC: 0TJB8ZZ Inspection of Bladder, Via Natural or Artificial Opening Endoscopic (ICD-10-PCS; CPT 52000; principal; 2025-01-15 11:15)
DX: N21.0 Calculus in bladder (principal); N13.2 Hydronephrosis with renal and ureteral calculous obstruction; G70.00 Myasthenia gravis without (acute) exacerbation; N31.9 Neuromuscular dysfunction of bladder, unspecified; E66.01 Morbid (severe) obesity due to excess calories; Z68.32 Body mass index [BMI] 32.0-32.9, adult; Z93.6 Other artificial openings of urinary tract status; N32.89 Other specified disorders of bladder; N40.0 Benign prostatic hyperplasia without lower urinary tract symptoms; N36.8 Other specified disorders of urethra
CPT/HCPCS: 52317; 52332; 36415; 74420; 80053; 82365; A4217; A4649; C1769; C1889; C1894; C2617; J1580; J1938; J2250; J2371; J2704; J3010; J3373; J3490; J7120; A9270; J7999